=== PATIENT | female | born 1960 | race Caucasian/White ===

== ENCOUNTER → 2020-08-19 13:27 | Outpatient (BNVA) | payer MEDICAID, SELFPAY | PROVIDERS: PCP Family Medicine; Visit Provider Family Medicine | DX: I10 Essential (primary) hypertension (principal); E78.5 Hyperlipidemia, unspecified; G47.00 Insomnia, unspecified; J43.1 Panlobular emphysema; E78.2 Mixed hyperlipidemia; M77.12 Lateral epicondylitis, left elbow; F51.05 Insomnia due to other mental disorder; F99 Mental disorder, not otherwise specified; M50.30 Other cervical disc degeneration, unspecified cervical region; F41.8 Other specified anxiety disorders; Z68.25 Body mass index [BMI] 25.0-25.9, adult; F17.219 Nicotine dependence, cigarettes, with unspecified nicotine-induced disorders | CPT/HCPCS: 80053; 80061; 82043; 85025 ==

== ENCOUNTER → 2020-08-20 11:12 | Outpatient (BNVA) | payer MEDICAID, SELFPAY | PROVIDERS: PCP Family Medicine; Visit Provider Family Medicine | DX: I10 Essential (primary) hypertension (principal); E78.5 Hyperlipidemia, unspecified; G47.00 Insomnia, unspecified; E78.2 Mixed hyperlipidemia; J43.1 Panlobular emphysema; M50.30 Other cervical disc degeneration, unspecified cervical region; F41.8 Other specified anxiety disorders; M77.12 Lateral epicondylitis, left elbow; F51.05 Insomnia due to other mental disorder; F99 Mental disorder, not otherwise specified; F17.219 Nicotine dependence, cigarettes, with unspecified nicotine-induced disorders; D53.9 Nutritional anemia, unspecified; Z68.25 Body mass index [BMI] 25.0-25.9, adult | CPT/HCPCS: 82607 ==

== ENCOUNTER → 2020-09-28 08:26 | Outpatient (BNVA) | payer MEDICAID, SELFPAY | PROVIDERS: PCP Family Medicine; Visit Provider Psychiatry & Neurology Psychiatry | DX: F41.8 Other specified anxiety disorders (principal); F33.1 Major depressive disorder, recurrent, moderate; F41.1 Generalized anxiety disorder; F17.200 Nicotine dependence, unspecified, uncomplicated; F43.9 Reaction to severe stress, unspecified | CPT/HCPCS: 99204 ==

== ENCOUNTER 2020-10-12 09:17 | Outpatient (CLI) | payer MEDICAID, SELFPAY ==
--- NOTE | 2020-10-12 09:31 | XR_ITS ---
WS: [id number] Exam: XR knee RT 3V* [id number] Date/Time of Exam: 10/12/2020 9:31 AM Reason For Exam: lateral right knee pain No fracture or dislocation. Mild degenerative change of the medial lateral joint compartments. No kaylan nt effusion. Normal soft tissues. XR/XR knee RT 3V* [id number] IMPRESSION: 1. Mild DJD. No fracture or other significant finding.
== END 2020-10-12 09:18 | disposition home or self-care (01) ==
LOC: RADWPI 09:21
PROVIDERS: PCP Family Medicine; Visit Provider Family Medicine
DX: M25.561 Pain in right knee (principal); G89.29 Other chronic pain; M17.11 Unilateral primary osteoarthritis, right knee
CPT/HCPCS: 73562

== ENCOUNTER → 2020-10-26 09:40 | Outpatient (BNVA) | payer MEDICAID, SELFPAY | PROVIDERS: PCP Family Medicine; Visit Provider Family Medicine | DX: R29.6 Repeated falls (principal); R42 Dizziness and giddiness; E53.8 Deficiency of other specified B group vitamins | CPT/HCPCS: 80053; 81000; 85025 ==

== ENCOUNTER → 2020-11-25 10:23 | Outpatient (BNVA) | payer MEDICAID, SELFPAY | PROVIDERS: PCP Family Medicine; Visit Provider Social Worker | DX: F41.8 Other specified anxiety disorders (principal); F33.1 Major depressive disorder, recurrent, moderate; F41.1 Generalized anxiety disorder | CPT/HCPCS: 90834 ==

== ENCOUNTER → 2020-12-02 11:47 | Outpatient (BNVA) | payer MEDICAID, SELFPAY | PROVIDERS: PCP Family Medicine; Visit Provider Psychiatry & Neurology Psychiatry | DX: F41.1 Generalized anxiety disorder (principal); F41.8 Other specified anxiety disorders; F33.1 Major depressive disorder, recurrent, moderate; F43.9 Reaction to severe stress, unspecified; F17.200 Nicotine dependence, unspecified, uncomplicated | CPT/HCPCS: 99213 ==

== ENCOUNTER → 2020-12-03 11:00 | Outpatient (BNVA) | payer MEDICAID, SELFPAY | PROVIDERS: PCP Family Medicine; Visit Provider Family Medicine | DX: Z01.812 Encounter for preprocedural laboratory examination (principal); Z20.822 Contact with and (suspected) exposure to COVID-19 | CPT/HCPCS: 87635 ==

== ENCOUNTER 2020-12-04 13:04 | Outpatient (CLI) | payer MEDICAID, SELFPAY ==
--- NOTE | 2020-12-04 13:14 | XR_ITS ---
WS: [id number] LUMBAR SPINE TECHNIQUE: 3 views of the lumbar spine CLINICAL INFORMATION: low back pain COMPARISON: None. FINDINGS: Mild lumbar curve convex right.. No acute appearing compression fractures. Osteopenia. Pelvic phlebol iths. Slight retrolisthesis L5 on S1 measuring 2 mm. Otherwise normal lumbar alignment. Aortic calcif ication. Mild disc space narrowing L5-S1. Disc space heights are otherwise well-preserved. Moderate f acet arthropathy L5-S1. XR/XR lumbar spine 2-3V* [id number] IMPRESSION: 1. Lumbar curve convex right. 2. Osteopenia. 3. No acute compression fractures. 4. Slight retrolisthesis L5 on S1 with mild disc space narrowing. 5. Disc space heights and vertebral body heights otherwise well preserved.
== END 2020-12-04 13:05 | disposition home or self-care (01) ==
PROVIDERS: PCP Family Medicine; Visit Provider Family Medicine
DX: M54.5 Low back pain (principal); M85.88 Other specified disorders of bone density and structure, other site
CPT/HCPCS: 72100

== ENCOUNTER 2020-12-08 07:10 | Outpatient (CLI) | payer MEDICAID, SELFPAY ==
--- NOTE | 2020-12-08 07:43 | PFTS_ITS ---
Date of Study:12/08/20 Date of Dictation: MECHANICS: Forced vital capacity (FVC) is reduced. Forced expiratory volume in one second (FEV1) is reduced. FEV1/FVC is normal. FLOW VOLUME LOOP: Narrow. LUNG VOLUMES: Not measured DIFFUSING CAPACITY FOR CARBON MONOXIDE: Not measured. INTERPRETATION: The postbronchodilator spirometry is consistent with moderate restriction. There is no significant postbronchodilator response. MTDD
== END 2020-12-08 07:11 | disposition home or self-care (01) ==
PROVIDERS: PCP Family Medicine; Visit Provider Family Medicine
DX: J43.1 Panlobular emphysema (principal)
CPT/HCPCS: 94060; J7611

== ENCOUNTER → 2020-12-21 10:14 | Outpatient (BNVA) | payer MEDICAID, SELFPAY | PROVIDERS: PCP Family Medicine; Visit Provider Social Worker | DX: F41.8 Other specified anxiety disorders (principal); F33.1 Major depressive disorder, recurrent, moderate; F41.1 Generalized anxiety disorder | CPT/HCPCS: 90834; 81000; 87086 ==

== ENCOUNTER 2020-12-24 12:14 | Outpatient (CLI) | payer MEDICAID, SELFPAY ==
--- NOTE | 2020-12-24 13:00 | MR_ITS ---
WS: [id number] MRI LUMBAR SPINE NONCONTRAST TECHNIQUE: Sagittal T1, T2 and STIR imaging. Axial T1 and T2 imaging. CLINICAL INFORMATION: back pain COMPARISON: None. FINDINGS: Mild lumbar curve. No acute compression. No high-grade central canal stenosis. Mild disc bulging wors e at L3-L5. L1-L2: Normal. L2-L3: No significant disc bulging. Mild facet arthropathy. Spinal canal and foramen are patent. L3-L4: Mild annular bulging with slight effacement of ventral thecal sac. Slight narrowing of the sub articular recess bilaterally left greater than right. Mild facet arthropathy. Foramen are patent. L4-L5: Mild eccentric disc bulging with small bilateral foraminal protrusions and mild bilateral fora jenna narrowing. Spinal canal is patent. Mild facet arthropathy. L5-S1: Mild disc bulging and osteophytic ridging. Right foraminal protrusion slightly impinges the ex iting right L5 nerve root. Spinal canal and foramen are patent. Moderate facet arthropathy. Partially visualized right hepatic cysts. Small left renal cysts. Tiny disc protrusions in the mid th oracic spine on the encoding clerk imaging more prominent at T7-T8, T8-T9, and T9-T10. Mild central canal sten osis at T7-8. Visualized pelvic bony structures: Normal. Paravertebral soft tissues: Normal. MR/MR lumbar spine wo con* [id number] IMPRESSION: 1. Mild lumbar curve. No acute compression. No high-grade central canal stenos is. 2. Small bilateral foraminal protrusions L4-5 with mild bilateral foraminal na rrowing. 3. Mild disc bulging L3-4 with slight narrowing of the left subarticular reces s. 4. Right eccentric disc protrusion L5-S1 slightly impinges the exiting right L 5 nerve root. 5. Mild facet arthropathy L3-L4 L4-L5 and L5-S1. 6. Small disc protrusions in the mid thoracic spine worse at T7-T8 with mild c entral canal stenosis described above. This could be further evaluated with [facility] spine MRI if indicated.
== END 2020-12-24 12:15 | disposition home or self-care (01) ==
LOC: RADSHAW 12:15
PROVIDERS: PCP Family Medicine; Visit Provider Family Medicine
DX: M51.26 Other intervertebral disc displacement, lumbar region (principal); M51.27 Other intervertebral disc displacement, lumbosacral region; M47.816 Spondylosis without myelopathy or radiculopathy, lumbar region; M47.817 Spondylosis without myelopathy or radiculopathy, lumbosacral region
CPT/HCPCS: 72148

== ENCOUNTER → 2021-01-19 10:22 | Outpatient (BNVA) | payer MEDICAID, SELFPAY | PROVIDERS: PCP Family Medicine; Referring Provider Family Medicine; Visit Provider Anesthesiology Pain Medicine | DX: G89.29 Other chronic pain (principal); M54.42 Lumbago with sciatica, left side; M79.605 Pain in left leg; F17.210 Nicotine dependence, cigarettes, uncomplicated | CPT/HCPCS: 99204 ==

== ENCOUNTER → 2021-01-21 14:54 | Outpatient (BNVA) | payer MEDICAID, SELFPAY | PROVIDERS: PCP Family Medicine; Visit Provider Social Worker | DX: F41.8 Other specified anxiety disorders (principal); F33.1 Major depressive disorder, recurrent, moderate; F41.1 Generalized anxiety disorder; F43.12 Post-traumatic stress disorder, chronic; F84.5 Asperger's syndrome | CPT/HCPCS: 90834 ==

== ENCOUNTER → 2021-02-18 10:29 | Outpatient (BNVA) | payer MEDICAID, SELFPAY | PROVIDERS: PCP Family Medicine; Visit Provider Social Worker | DX: F41.8 Other specified anxiety disorders (principal); F33.1 Major depressive disorder, recurrent, moderate; F41.1 Generalized anxiety disorder | CPT/HCPCS: 90834 ==

== ENCOUNTER → 2021-03-31 09:14 | Outpatient (BNVA) | payer MEDICAID, SELFPAY | PROVIDERS: PCP Family Medicine; Visit Provider Social Worker | DX: F41.8 Other specified anxiety disorders (principal); F33.1 Major depressive disorder, recurrent, moderate; F41.1 Generalized anxiety disorder | CPT/HCPCS: 90837; 90834 ==

== ENCOUNTER 2021-04-06 06:00 | Outpatient (RCR) | payer MEDICAID, SELFPAY | END 2021-04-19 23:59 | disposition home or self-care (01) | LOC: SPT 06:00 | PROVIDERS: PCP Family Medicine; Referring Provider Anesthesiology Pain Medicine; Visit Provider Anesthesiology Pain Medicine | DX: M54.42 Lumbago with sciatica, left side (principal); G89.29 Other chronic pain; M50.30 Other cervical disc degeneration, unspecified cervical region | CPT/HCPCS: 97110; 97161 ==

== ENCOUNTER 2021-04-20 06:00 | Outpatient (RCR) | payer MEDICAID, SELFPAY | END 2021-05-17 23:59 | disposition home or self-care (01) | LOC: SPT 06:00 | PROVIDERS: PCP Family Medicine; Referring Provider Anesthesiology Pain Medicine; Visit Provider Anesthesiology Pain Medicine | DX: M54.42 Lumbago with sciatica, left side (principal); G89.29 Other chronic pain; M50.30 Other cervical disc degeneration, unspecified cervical region | CPT/HCPCS: 97110 ==

== ENCOUNTER 2021-04-30 13:52 | Outpatient (CLI) | payer MEDICAID, SELFPAY ==
--- NOTE | 2021-04-30 14:04 | XR_ITS ---
WS: [id number] Facial bones. HISTORY: Fall with facial bruising. COMPARISON: None. There are no air-fluid levels within the sinuses. Orbits are intact. Nasal bones are normal. No zygom atic fracture identified. Mandibular condyles are normally positioned. XR/XR facial bones <3V [id number] IMPRESSION: No facial bone fractures.
== END 2021-04-30 13:53 | disposition home or self-care (01) ==
LOC: RAD 14:01
PROVIDERS: PCP Family Medicine; Visit Provider Family Medicine
DX: S00.93XA Contusion of unspecified part of head, initial encounter (principal); W19.XXXA Unspecified fall, initial encounter
CPT/HCPCS: 70140

== ENCOUNTER 2021-05-18 06:00 | Outpatient (RCR) | payer MEDICAID, SELFPAY | END 2021-06-17 23:59 | disposition home or self-care (01) | LOC: SPT 06:00 | PROVIDERS: PCP Family Medicine; Referring Provider Anesthesiology Pain Medicine; Visit Provider Anesthesiology Pain Medicine | DX: M54.42 Lumbago with sciatica, left side (principal); G89.29 Other chronic pain; M50.30 Other cervical disc degeneration, unspecified cervical region | CPT/HCPCS: 97110 ==

== ENCOUNTER 2021-06-18 06:00 | Outpatient (RCR) | payer MEDICAID, SELFPAY | END 2021-06-29 23:59 | disposition home or self-care (01) | LOC: SPT 06:00 | PROVIDERS: PCP Family Medicine; Referring Provider Anesthesiology Pain Medicine; Visit Provider Anesthesiology Pain Medicine | DX: M54.42 Lumbago with sciatica, left side (principal); G89.29 Other chronic pain; M50.30 Other cervical disc degeneration, unspecified cervical region | CPT/HCPCS: 97110 ==

== ENCOUNTER → 2021-07-07 07:35 | Outpatient (BNVA) | payer MEDICAID, SELFPAY | PROVIDERS: PCP Family Medicine; Visit Provider Social Worker | DX: F33.1 Major depressive disorder, recurrent, moderate (principal); F41.1 Generalized anxiety disorder | CPT/HCPCS: 90834 ==

== ENCOUNTER → 2021-07-13 09:30 | Outpatient (BNVA) | payer MEDICAID, SELFPAY | PROVIDERS: PCP Family Medicine; Visit Provider Psychiatry & Neurology Psychiatry | DX: F43.9 Reaction to severe stress, unspecified (principal); F41.1 Generalized anxiety disorder; F33.1 Major depressive disorder, recurrent, moderate; F17.219 Nicotine dependence, cigarettes, with unspecified nicotine-induced disorders | CPT/HCPCS: 99214 ==

== ENCOUNTER → 2021-07-15 15:31 | Outpatient (BNVA) | payer MEDICAID, SELFPAY | PROVIDERS: PCP Family Medicine; Visit Provider Family Medicine | DX: I10 Essential (primary) hypertension (principal); E78.2 Mixed hyperlipidemia | CPT/HCPCS: 80053; 80061; 82043; 85025 ==

== ENCOUNTER → 2021-08-02 07:32 | Outpatient (BNVA) | payer MEDICAID, SELFPAY | PROVIDERS: PCP Family Medicine; Visit Provider Social Worker | DX: F33.1 Major depressive disorder, recurrent, moderate (principal) | CPT/HCPCS: 90837; 90834 ==

== ENCOUNTER → 2021-08-24 09:55 | Outpatient (BNVA) | payer MEDICAID, SELFPAY | PROVIDERS: PCP Family Medicine; Visit Provider Psychiatry & Neurology Psychiatry | DX: F43.9 Reaction to severe stress, unspecified (principal); F41.1 Generalized anxiety disorder; F33.1 Major depressive disorder, recurrent, moderate; F17.200 Nicotine dependence, unspecified, uncomplicated | CPT/HCPCS: 99214 ==

== ENCOUNTER → 2021-09-07 10:01 | Outpatient (BNVA) | payer MEDICAID, SELFPAY | PROVIDERS: PCP Family Medicine; Visit Provider Social Worker | DX: F33.1 Major depressive disorder, recurrent, moderate (principal); F43.9 Reaction to severe stress, unspecified; F17.200 Nicotine dependence, unspecified, uncomplicated; F41.1 Generalized anxiety disorder | CPT/HCPCS: 90837; 90834 ==

== ENCOUNTER 2021-11-08 13:13 | Outpatient (CLI) | payer MEDICAID, SELFPAY ==
--- NOTE | 2021-11-08 14:30 | USCV_ITS ---
Estephanie Mao Age: 60 Gender: F : 1960 Exam Date: 11/08/2021 14:24 Ordering Phys: Caterina Jacome DO Technologist: Etta Loera [place] [facility] [place]: s/p AOV replacement, LVH BP: / HR: 59 Rhythm: Sinus Technical Quality: MEASUREMENTS (Male / Female) Normal Values 2D ECHO LV Diastolic Diameter PLAX 3.9 cm 4.2 - 5.9 / 3.9 - 5.3 cm LV Systolic Diameter PLAX 2.3 cm IVS Diastolic Thickness 0.9 cm 0.6 - 1.0 / 0.6 - 0.9 cm IVS Systolic Thickness 1.5 cm LVPW Diastolic Thickness 1.1 cm 0.6 - 1.0 / 0.6 - 0.9 cm LVPW Systolic Thickness 1.2 cm LVOT Diameter 2.0 cm LV Ejection Fraction 2D Teich 74.4 % LV Ejection Fraction MOD 2C 71.4 % LV Ejection Fraction 2C AL 71.0 % LA Diameter 2.7 cm LA Width 3.5 cm LA Height 4.8 cm RA Width 2.5 cm RA Height 3.7 cm Aorta at Sinotubular Diameter 2.6 cm IVC Diameter 1.2 cm M-MODE MV E Point Septal Separation 0.4 cm DOPPLER AV Peak Velocity 327.3 cm/s LVOT Peak Velocity 104.0 cm/s AV Area Cont Eq vti 1.5 cm squared AV Area Cont Eq pk 1.0 cm squared MV Peak Velocity 150.0 cm/s MV Area PHT 3.9 cm squared Mitral E to A Ratio 1.4 MV E' Velocity 71.0 cm/s Mitral E to MV E' Ratio 14.1 Mitral E to LV E' Lateral Ratio 13.0 Mitral E to LV E' Septal Ratio 15.6 TR Peak Velocity 92.3 cm/s TR Peak Gradient 3.4 mmHg Right Atrial Pressure 3.0 mmHg Pulmonary Artery Systolic Pressu 6.4 mmHg PV Peak Velocity 74.0 cm/s RV Acceleration Time 0.2 s RV Ejection Time 0.3 s RV AcT/ET 0.5 FINDINGS Left Ventricle Normal left ventricular size, systolic function and wall thickness, with no regional wall motion abnormalities. Left ventricular ejection fraction is estimated at 65 %. Grade I/IV diastolic dysfunction (abnormal relaxation filling pattern), normal to mildly elevated filling pressures. Right Ventricle Normal right ventricular size and systolic function. Right Atrium The right atrium is normal in size. Left Atrium The left atrium is normal in size. Mitral Valve Structurally normal mitral valve without significant stenosis or prolapse. There is no mitral regurgitation. Aortic Valve Bioprosthetic aortic valve. Mild aortic valve stenosis, mean gradient 31.1 mmHg, FERNANDO 1.5 cm squared. No aortic valve regurgitation. Valve is properly positioned and seated. Tricuspid Valve Structurally normal tricuspid valve without significant stenosis or regurgitation. Pulmonary artery systolic pressure is normal. Pulmonic Valve Pulmonic valve not well visualized. Pericardium Normal pericardium without effusion. Aorta Normal ascending aorta dimension. IVC The inferior vena cava pulmonary and hepatic veins appear normal. CONCLUSIONS Normal left ventricular size, systolic function and wall thickness, with no regional wall motion abnormalities. Left ventricular ejection fraction is estimated at 65 %. Grade I/IV diastolic dysfunction (abnormal relaxation filling pattern), normal to mildly elevated filling pressures. Bioprosthetic aortic valve. Mild aortic valve stenosis, mean gradient 31.1 mmHg, FERNANDO 1.5 cm squared. No aortic valve regurgitation. Valve is properly positioned and seated. There are no prior echocardiogram studies to compare. Dr. Med Avendano MD (Electronically Signed) Final Date: 09 November 2021 10:08 S
== END 2021-11-08 13:14 | disposition home or self-care (01) ==
LOC: RAD 13:14
PROVIDERS: Visit Provider Family Medicine
DX: Z95.2 Presence of prosthetic heart valve (principal); I51.7 Cardiomegaly; I35.0 Nonrheumatic aortic (valve) stenosis; I50.1 Left ventricular failure, unspecified
CPT/HCPCS: 93306

== ENCOUNTER → 2021-11-09 08:45 | Outpatient (BNVA) | payer MEDICAID, SELFPAY | PROVIDERS: Visit Provider Anesthesiology Pain Medicine | DX: G89.29 Other chronic pain (principal); M54.42 Lumbago with sciatica, left side; M47.816 Spondylosis without myelopathy or radiculopathy, lumbar region; M48.04 Spinal stenosis, thoracic region; M79.604 Pain in right leg; M79.605 Pain in left leg | CPT/HCPCS: 99204 ==

== ENCOUNTER → 2021-12-06 11:56 | Outpatient (BNVA) | payer MEDICAID, SELFPAY | PROVIDERS: PCP Family Medicine; Visit Provider Internal Medicine | DX: I10 Essential (primary) hypertension (principal); E78.5 Hyperlipidemia, unspecified; Z95.2 Presence of prosthetic heart valve; F17.210 Nicotine dependence, cigarettes, uncomplicated | CPT/HCPCS: 93005; 99204 ==

== ENCOUNTER → 2022-01-12 14:46 | Outpatient (BNVA) | payer MEDICAID, SELFPAY | PROVIDERS: PCP Family Medicine; Visit Provider Internal Medicine Pulmonary Disease | DX: J43.1 Panlobular emphysema (principal); Z95.2 Presence of prosthetic heart valve; G47.33 Obstructive sleep apnea (adult) (pediatric); F17.219 Nicotine dependence, cigarettes, with unspecified nicotine-induced disorders; Z12.2 Encounter for screening for malignant neoplasm of respiratory organs; Z71.6 Tobacco abuse counseling | CPT/HCPCS: 99204 ==

== ENCOUNTER → 2022-02-08 10:21 | Outpatient (BNVA) | payer MEDICAID, SELFPAY | PROVIDERS: PCP Family Medicine; Referring Provider Family Medicine; Visit Provider Physician Assistant | DX: S33.2XXA Dislocation of sacroiliac and sacrococcygeal joint, initial encounter (principal); W19.XXXA Unspecified fall, initial encounter | CPT/HCPCS: 72110; 99203 ==

== ENCOUNTER 2022-02-09 10:39 | Outpatient (CLI) | payer MEDICAID, SELFPAY ==
--- NOTE | 2022-02-09 11:00 | CT_ITS ---
WS: [id number] LDCT LUNG CANCER SCREENING HISTORY: lung screening TECHNIQUE: Axial imaging performed from the apices to 1 cm below the costophrenic angles. Coronal and sagittal reformats are submitted with axial MIP series. All CT scans at [facility] use at least one of these dose optimization techniques: automated exposure control; mA and/or kV adjustment per patient size (includes targeted exams where dose is matched to clinical indication); or iterativ e reconstruction. DLP: 61.92 mGy.cm DIvol: Mean CTDIvol: 1.60 (mGy) COMPARISON: None available. Diagnostic quality: Satisfactory Lung Nodules: No nodule or mass. No endobronchial lesion. Lungs: Diffuse interstitial reticular thickening throughout both lungs. Most significant in the perip heral locations in greatest in the RIGHT upper lobe. There is bronchial wall thickening. All of these changes are probably related to respiratory bronchiolitis and fibrotic changes associated with a his tory of smoking. Heart: Prior CABG. Mild cardiomegaly. No pericardial effusion. Other findings: Numerous low-attenuation lesions scattered throughout the liver. These need to be fur ther evaluated. No adrenal mass. CT/CT lung screening [id number] IMPRESSION: LUNG-RADS: 1S-Negative with Significant Findings FOLLOW UP: 12 Month: Continue annual screening with LDCT OTHER FINDINGS (S MODIFIER): Numerous low-attenuation masses within the liver. Favor these are probably cysts but needs to be further evaluated. Recommend fol low-up RIGHT upper quadrant ultrasound.
== END 2022-02-09 10:40 | disposition home or self-care (01) ==
LOC: RAD 10:44
PROVIDERS: PCP Family Medicine; Visit Provider Internal Medicine Pulmonary Disease
DX: Z12.2 Encounter for screening for malignant neoplasm of respiratory organs (principal); F17.210 Nicotine dependence, cigarettes, uncomplicated
CPT/HCPCS: 71271

== ENCOUNTER → 2022-03-01 09:52 | Outpatient (BNVA) | payer MEDICAID, SELFPAY | PROVIDERS: Visit Provider Family Medicine | DX: K76.9 Liver disease, unspecified (principal); E53.8 Deficiency of other specified B group vitamins; M54.42 Lumbago with sciatica, left side; I10 Essential (primary) hypertension; E78.5 Hyperlipidemia, unspecified; F17.219 Nicotine dependence, cigarettes, with unspecified nicotine-induced disorders; G89.29 Other chronic pain | CPT/HCPCS: 80053; 80061; 83036; 84439; 84443; 85025 ==

== ENCOUNTER 2022-03-29 09:21 | Outpatient (CLI) | payer MEDICAID, SELFPAY | END 2022-03-29 09:22 | disposition home or self-care (01) | LOC: RT 09:24 | PROVIDERS: PCP Family Medicine; Visit Provider Internal Medicine Pulmonary Disease | DX: J44.9 Chronic obstructive pulmonary disease, unspecified (principal) | CPT/HCPCS: 94010; 94618; 94726; 94729 ==

== ENCOUNTER 2022-04-30 22:59 | Emergency (ER) | payer MEDICAID, SELFPAY ==
[2022-04-30 23:03] VITALS: BP 108/56; PULSE 72; RESP 13; TEMP 36.6; O2SAT 96; BMI 24.4
--- NOTE | 2022-05-01 00:33 | CTR_ITS ---
PROCEDURE INFORMATION: Exam: CT Lumbar Spine Without Contrast Exam date and time: 05/01/2022 12:46 AM Age: 61 years old Clinical indication: Other: Right side radiculopathy TECHNIQUE: Imaging protocol: Computed tomography of the lumbar spine without contrast. Radiation optimization: All CT scans at this facility use at least one of these dose optimization techniques: automated exposure control; mA and/or kV adjustment per patient size (includes targeted exams where dose is matched to clinical indication); or iterative reconstruction. Other protocol: This patient has received [address] and 0 known cardiac nuclear medicine studies in the 12 months prior to the current study. COMPARISON: MR lumbar spine wo con* [id number] 12/24/2020 12:25 PM RADIATION DOSE METRICS: Total DLP (mGy-cm): 455.88 FINDINGS: Bones/joints: Mild dextrocurvature of the upper lumbar spine and mild levocurvature of the lumbosacral junction. There is retrolisthesis of L5 on S1. The alignment is otherwise maintained. The vertebral body heights are maintained. No evidence of acute fractures. There are degenerative changes of the SI joints. At L1-L2: Mild disc bulge. Minimal hypertrophy of the ligamentum flavum. No significant spinal canal stenosis. Mild facet arthropathy. No high-grade neural foraminal stenosis. At L2-L3: Diffuse disc bulge. Mild prominence of the posterior epidural fat. Mild facet arthropathy. No significant spinal canal or neural foramina stenosis. At L3-L4: Diffuse disc bulge. Mild hypertrophy of the ligamentum flavum. No significant/high-grade spinal canal stenosis. Bilateral facet arthropathy. No significant neural foraminal stenosis. At L4-L5: Diffuse disc bulge. Mild hypertrophy of the ligamentum flavum. No significant/high-grade spinal canal stenosis. Mild facet arthropathy. Mild bilateral neural foramina stenosis. At L5-S1: Diffuse disc bulge. Mild hypertrophy of the ligamentum flavum and mild increased posterior epidural fat. No significant/high-grade spinal canal stenosis. Mild right lateral recess stenosis. Bilateral facet arthropathy. Moderate right and mild left neural foraminal stenosis. Vasculature: There are atherosclerotic calcifications of the abdominal aorta and its branches. Soft tissues: Unremarkable. CT/CT lumbar spine wo con* [id number] IMPRESSION: Multilevel degenerative disc and joint disease as detailed level by level above, worse at L5-S1 as outlined.
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
[2022-05-01] MEDS: orphenadrine 30 mg/mL Inj 2 mL 60 MG IM (00:57)
[2022-05-01] MEDS: dexamethasone 10 mg/mL INJ IM (00:57)
[2022-05-01] MEDS: ketorolac 30 mg/mL INJ IM (00:57)
== END 2022-05-01 02:17 | disposition home or self-care (01) ==
PROVIDERS: Emergency Provider Nurse Practitioner; PCP Family Medicine
DX: M51.16 Intervertebral disc disorders with radiculopathy, lumbar region (principal); M47.816 Spondylosis without myelopathy or radiculopathy, lumbar region; M12.88 Other specific arthropathies, not elsewhere classified, other specified site; J44.9 Chronic obstructive pulmonary disease, unspecified; I10 Essential (primary) hypertension; E78.5 Hyperlipidemia, unspecified; H35.30 Unspecified macular degeneration; F17.210 Nicotine dependence, cigarettes, uncomplicated
CPT/HCPCS: 72131; 96372; 99284; J1100; J1885; J2360

== ENCOUNTER 2022-12-04 22:31 | Emergency (ER) | payer MEDICAID, SELFPAY ==
[2022-12-04 22:32] VITALS: BP 145/91; PULSE 76; RESP 16; TEMP 37.1; O2SAT 99; BMI 27.2
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
[2022-12-04 23:48] VITALS: RESP 18; O2SAT 99
[2022-12-04] MEDS: oxyCODONE-APAP 5-325 mg Tablet 1 TAB PO (23:48)
[2022-12-05] MEDS: lidocaine 1% INJ 10 mL (per mL) 20 ML INJECTION (00:47)
--- NOTE | 2022-12-05 00:53 | XRR_ITS ---
PROCEDURE INFORMATION: Exam: XR Right Toe(s) Exam date and time: 12/05/2022 1:03 AM Age: 62 years old Clinical indication: Injury or trauma; Fall; Fracture, traumatic; Displaced; Toes; Right; Fifth; Patient HX: Check S/P reduction of 5th phalangeal fracture. ; Additional info: Post reduc TECHNIQUE: Imaging protocol: Radiologic exam of the right toes. Views: Minimum 2 views. COMPARISON: CR (LOW EXM, ) 12/04/2022 11:11 PM FINDINGS: Bones/joints: 5th proximal phalanx distal metaphyseal fracture again seen now with improved alignment compared to prior exam with persistent mild separation. Soft tissues: Normal. XR/XR toe RT min 2V [id number] IMPRESSION: 5th proximal phalanx distal metaphyseal fracture again seen now with improved alignment compared to prior exam with persistent mild separation.
--- NOTE | 2022-12-05 02:05 | ED_ITS ---
HPI - Extremity Problem General: Chief complaint: Extremity Injury, Lower Stated complaint: Fall Time Seen by Provider: 12/04/22 22:36 History of Present Illness: 62-year-old female who stubbed her toe on a nightstand. She presents with fifth toe pain and deformity on the right side. Associated symptoms: Deny chest pain, fever(s) or rash Review of Systems Const: Denies: fever(s) Card: Denies: chest pain Resp: Denies: dyspnea GI: Denies: vomiting Skin/Breast: Denies: rash PFSH ED PFSH: Medical History Asthma Chronic low back pain COPD (chronic obstructive pulmonary disease) DDD (degenerative disc disease), cervical Depression with anxiety Essential hypertension Hyperlipidemia Macular degeneration ROBERTO (obstructive sleep apnea) Psychiatric care Surgical History H/O section History of open heart surgery S/P AVR (aortic valve replacement) Family History Other Alzheimer disease Cancer Social History Smoking and tobacco status: current every day smoker cigarettes Packs smoked per day: 1 Years cigarettes smoked: 42 [ Other cigarette details: started at age 19] Quit status (tobacco): has tried quititng Number of times tried to quit tobacco: 4 Smoking risk assessment/counseling performed?: No Alcohol intake: never Desire information about alcohol rehabilitation?: No Counseling given: No Substance/Drug Use: never Desire information about substance/drug rehabilitation?: No Counseling given: No History of recent travel: No Female Reproductive History: Spontaneous abortions: No Physical Exam Const: COMMON NORMALS: no acute distress GENERAL APPEARANCE: cooperative; not ill appearing and not frail appearing HENMT: COMMON NORMALS: normocephalic, atraumatic and Normal external nose present HEAD & SCALP: normocephalic and atraumatic FACE & SINUS: normal facial exam and face symmetric NOSE: Normal external nose present Eye: COMMON NORMALS: Equal, round and reactive pupils present and EOMs intact bilaterally PUPIL: Yes Equal, round and reactive pupils present Neck/C-Spine: GENERAL: Yes trachea midline Chest: CHEST: Yes Symmetrical chest wall rise Resp: COMMON NORMALS: normal respiratory effort, No retractions, No use of accessory muscles and clear to auscultation bilaterally AUSCULTATION: clear to auscultation bilaterally Cardio: COMMON NORMALS: regular rate and regular rhythm RATE: regular rate RHYTHM: regular rhythm GI: COMMON NORMALS: Normal to inspection, nondistended, normoactive bowel sounds present Extremity: COMMON NORMALS: no pedal edema NARRATIVE EXTREMITY EXAM: Exam of the right foot reveals deformity of the fifth toe. There is lateral displacement and internal rotation deformity. Ecchymosis is present. Tenderness is present. Capillary refill is normal. Neuro: COLLETTE COMA SCALE: document [facility] findings [place] coma scale eye opening: Spontaneous [place] coma scale verbal response: Orientated [place] coma scale motor response: Obey commands [place] coma scale total score: 15 SENSORY EXAM: Yes extremities (intact) Psych: COMMON NORMALS: speech normal SPEECH: Yes normal speech Skin: COMMON NORMALS: no rashes or lesions noted GENERAL SKIN EXAM: no rashes or lesions noted Procedures Orthopedic Fracture Reduction Fracture #1: Time Out Performed: No Side: right Fracture Reduction Location: toe Analgesia: other (Digital block) Technique: direct manipulation and traction/counter-traction Post Reduction X-rays Demonstrate: acceptable reduction Post-reduction neuro exam: intact Post-reduction vascular exam: intact Splint Applied: Yes Patient Tolerated Procedure: well and no complications Course Vital Signs: Vital signs: Vital Signs Temperature 98.7 F 12/04/22 22:32 Pulse Rate 76 12/04/22 22:32 Respiratory Rate 18 12/04/22 23:48 Blood Pressure 145/91 12/04/22 22:32 Pulse Oximetry 99 12/04/22 23:48 Oxygen Delivery Me thod Room Air 12/04/22 22:32 MDM - Extremity (Nontraumatic) Medical Decision Making Patient splinted with tuyet taping, and orthopedic shoe. Outpatient orthopedic follow-up for repeat x-ray this week. Patient was told to keep the toe taped for splinting. Return for problems. Lab Data Radiology Impressions Toe X-Ray 12/05/22 00:53 IMPRESSION: 5th proximal phalanx distal metaphyseal fracture again seen now with improved alignment compared to prior exam with persistent mild separation. All radiology interpretation(s) finalized by discharge Discharge Plan Discharge Patient Disposition: Home Clinical Impression: Closed fracture of proximal phalanx of toe Condition: Stable Prescriptions: New hydrocodone-acetaminophen 5-325 mg tablet 1 tab PO Q8H PRN (Reason: pain) Qty: 7 0RF No Action cyanocobalamin (vitamin B-12) 1,000 mcg/mL kit 1,000 mcg IM ONCE Qty: 1 0RF albuterol sulfate [ProAir HFA] 90 mcg/actuation HFA aerosol inhaler See Rx Instructions .ROUTE .COMPLEX Qty: 8.5 5RF Dose Instruction: INHALE 2 PUFFS EVERY SIX HOURS NEEDED FOR SHORTNESS OF BREATH OR WHEEZING Rx Instructions: INHALE 2 PUFFS EVERY SIX HOURS NEEDED FOR SHORTNESS OF BREATH OR WHEEZING aspirin [Adult Low Dose Aspirin] 81 mg tablet,delayed release (DR/EC) 81 mg PO DAILY Qty: 90 3RF nicotine 21 mg/24 hr patch 24 hour See Rx Instructions .ROUTE .COMPLEX Qty: 28 1RF Dose Instruction: APPLY 1 PATCH TRANSDERMALLY DAILY Rx Instructions: APPLY 1 PATCH TRANSDERMALLY DAILY cyanocobalamin (vitamin B-12) 1,000 mcg/mL solution See Rx Instructions .ROUTE .COMPLEX Qty: 15 0RF Dose Instruction: INJECT 1ML INTRAMUSCULAR (INTO THE MUSCLE) ONCE WEEKLY FOR 3 WEEKS THEN ONCE PER MONTH. Rx Instructions: INJECT 1ML INTRAMUSCULAR (INTO THE MUSCLE) ONCE WEEKLY FOR 3 WEEKS THEN ONCE PER MONTH. omeprazole 40 mg capsule,delayed release(DR/EC) See Rx Instructions .ROUTE .COMPLEX Qty: 90 1RF Dose Instruction: TAKE 1 CAPSULE BY MOUTH DAILY Rx Instructions: TAKE 1 CAPSULE BY MOUTH DAILY duloxetine 60 mg capsule,delayed release(DR/EC) See Rx Instructions .ROUTE .COMPLEX Qty: 60 3RF Dose Instruction: TAKE 2 CAPSULES BY MOUTH DAILY Rx Instructions: TAKE 2 CAPSULES BY MOUTH DAILY aripiprazole 2 mg tablet See Rx Instructions .ROUTE .COMPLEX Qty: 30 3RF Dose Instruction: TAKE ONE TABLET BY MOUTH DAILY Rx Instructions: TAKE ONE TABLET BY MOUTH DAILY budesonide-formoterol [Symbicort] 160-4.5 mcg/actuation HFA aerosol inhaler See Rx Instructions .ROUTE .COMPLEX Qty: 10.2 5RF Dose Instruction: INHALE 2 INHALATIONS BY MOUTH TWICE DAILY Rx Instructions: INHALE 2 INHALATIONS BY MOUTH TWICE DAILY atorvastatin 40 mg tablet See Rx Instructions .ROUTE .COMPLEX Qty: 30 5RF Dose Instruction: TAKE 1 TABLET BY MOUTH EVERY DAY Rx Instructions: TAKE 1 TABLET BY MOUTH EVERY DAY cyclobenzaprine 5 mg tablet See Rx Instructions .ROUTE .COMPLEX Qty: 30 5RF Dose Instruction: TAKE 5 MG BY MOUTH THREE TIMES DAILY NEEDED FOR MUSCLE SPASM Rx Instructions: TAKE 5 MG BY MOUTH THREE TIMES DAILY NEEDED FOR MUSCLE SPASM ibuprofen 800 mg tablet See Rx Instructions .ROUTE .COMPLEX Qty: 60 5RF Dose Instruction: TAKE 1 TABLET BY MOUTH THREE TIMES DAILY NEEDED FOR PAIN Rx Instructions: TAKE 1 TABLET BY MOUTH THREE TIMES DAILY NEEDED FOR PAIN trazodone 100 mg tablet See Rx Instructions .ROUTE .COMPLEX Qty: 90 5RF Dose Instruction: TAKE THREE TABLETS BY MOUTH EVERY NIGHT AT BEDTIME NEEDED FOR INSOMNIA Rx Instructions: TAKE THREE TABLETS BY MOUTH EVERY NIGHT AT BEDTIME NEEDED FOR INSOMNIA bupropion HCl 300 mg tablet extended release 24 hr See Rx Instructions .ROUTE .COMPLEX Qty: 30 2RF Dose Instruction: TAKE ONE TABLET BY MOUTH IN THE MORNING Rx Instructions: TAKE ONE TABLET BY MOUTH IN THE MORNING losartan 25 mg tablet See Rx Instructions .ROUTE .COMPLEX Qty: 30 2RF Dose Instruction: TAKE 1 TABLET BY MOUTH EVERY DAY Rx Instructions: TAKE 1 TABLET BY MOUTH EVERY DAY methocarbamol 500 mg tablet 500 mg PO Q6H PRN (Reason: muscle spasm) Qty: 30 0RF Discharge Orders: Discharge ED (Routine); Ordered 12/05/22 Ordered By: Fortunato Ward Referrals: Hilario Marroquin DO [Primary Care Provider] - Brett Starr DO [Physician] - 4-7 days Patient Instructions: Toe Fracture (ED), Opioid Safety, Pain Management Activity Restrictions/Additional Instructions: Call orthopedics at the number above tomorrow for an outpatient appointment this week. Keep your toe taped to the next toe until that time. Also bear weight in the surgical shoe your dispensed until that time. Ice the toe for pain. Pain medication for severe pain. Coding Level of Care Code ED Nutrient Management Specialist for Ysabel Beverly
== END 2022-12-05 01:47 | disposition home or self-care (01) ==
PROVIDERS: Emergency Provider Emergency Medicine; PCP Family Medicine
DX: S92.511A Displaced fracture of proximal phalanx of right lesser toe(s), initial encounter for closed fracture (principal); Z79.82 Long term (current) use of aspirin; F17.210 Nicotine dependence, cigarettes, uncomplicated; J44.9 Chronic obstructive pulmonary disease, unspecified; I10 Essential (primary) hypertension; E78.5 Hyperlipidemia, unspecified; H35.30 Unspecified macular degeneration; W22.03XA Walked into furniture, initial encounter
CPT/HCPCS: 28515; 73660; 99283

== ENCOUNTER → 2022-12-19 09:03 | Outpatient (BNVA) | payer MEDICAID, SELFPAY | PROVIDERS: PCP Family Medicine; Visit Provider Family Medicine | DX: S92.501A Displaced unspecified fracture of right lesser toe(s), initial encounter for closed fracture (principal); E78.5 Hyperlipidemia, unspecified; F33.1 Major depressive disorder, recurrent, moderate; I10 Essential (primary) hypertension; E53.8 Deficiency of other specified B group vitamins; Z09 Encounter for follow-up examination after completed treatment for conditions other than malignant neoplasm; S92.501D Displaced unspecified fracture of right lesser toe(s), subsequent encounter for fracture with routine healing; E78.2 Mixed hyperlipidemia; K21.00 Gastro-esophageal reflux disease with esophagitis, without bleeding; J44.9 Chronic obstructive pulmonary disease, unspecified; X58.XXXA Exposure to other specified factors, initial encounter | CPT/HCPCS: 80053; 80061; 82607; 85025 ==

== ENCOUNTER 2023-01-03 19:07 | Emergency (ER) | payer MEDICAID, SELFPAY ==
[2023-01-03 19:27] VITALS: BP 117/73; PULSE 77; RESP 18; TEMP 36.4; O2SAT 97; BMI 26.2
--- NOTE | 2023-01-03 21:37 | W.ED.DENTAL ---
HPI - Dental/Oral General: Chief complaint: Dental/Oral Stated complaint: dental pain/swelling Time Seen by Provider: 01/03/23 21:37 History of Present Illness: 62-year-old female comes in today with discomfort to the left lower jaw of her mouth. Patient is a dentulous. Patient does wear dentures. Patient reports went to sleep last night when she woke up this morning the left lower jaw was tender and a little swollen. Patient appears nontoxic. Patient appears no acute distress. Patient at this time is homeless and was unable to get into the homeless skilled nursing for tonight. Review of Systems General: Reports: 10 or more systems reviewed and unremarkable except in HPI and below ENMT: Reports: mouth pain PFS ED PFSH: Medical History (Updated 01/03/23 @ 21:50 by NORMAN Harrison) Asthma Chronic low back pain COPD (chronic obstructive pulmonary disease) DDD (degenerative disc disease), cervical Depression with anxiety Essential hypertension Hyperlipidemia Macular degeneration ROBERTO (obstructive sleep apnea) Surgical History H/O section History of open heart surgery S/P AVR (aortic valve replacement) Family History Other Alzheimer disease Cancer Social History Smoking and tobacco/nicotine status: current every day tobacco/nicotine user cigarettes Packs smoked per day: 1 Years cigarettes smoked: 42 [ Other cigarette details: started at age 19] Quit status (tobacco/nicotine): has tried quititng Number of times tried to quit tobacco: 4 Alcohol intake: never Substance/Drug Use: never Female Reproductive History: Spontaneous abortions: No Physical Exam Const: COMMON NORMALS: alert HENMT: COMMON NORMALS: normocephalic HEAD & SCALP: normocephalic MOUTH: other (Left buccal tenderness with noticeable ulcer) Neck/C-Spine: COMMON NORMALS: no meningeal signs Chest: COMMONS NORMALS: normal inspection of the chest Resp: COMMON NORMALS: normal respiratory effort Cardio: COMMON NORMALS: regular rate RATE: regular rate Extremity: COMMON NORMALS: full ROM Neuro: SENSORIUM/ORIENTATION: Yes alert MENINGEAL SIGNS: Yes no meningeal signs Skin: COMMON NORMALS: turgor normal GENERAL SKIN EXAM: turgor normal Course Vital Signs: Vital signs: Vital Signs Temperature 97.6 F 01/03/23 19:27 Pulse Rate 77 01/03/23 19:27 Respiratory Rate 16 01/03/23 22:02 Blood Pressure 117/73 01/03/23 19:27 Pulse Oximetry 97 01/03/23 19:27 Oxygen Delivery Me thod Room Air 01/03/23 19:27 MDM - Dental/Oral Medical Decision Making 62-year-old female comes in today for complaints of left lower jaw discomfort. Patient appears nontoxic. Patient appears no acute distress. On exam patient has a small ulcer noted to the left lower gingival tissue between the edentulous jawline and the buccal cheek. Differential diagnosis includes aphthous ulcer, stomatitis, candidiasis, dental infection. No signs of severe illness or infection is noted at this time. Reviewed exam with patient with recommendations for treatment. Patient was stable and discharged home. No radiology studies performed this visit Discharge Plan Discharge Patient Disposition: Home Clinical Impression: Aphthous ulcer of mouth Condition: Stable Prescriptions: New triamcinolone acetonide 0.1 % paste 1 applic dental BID Qty: 5 0RF Rx Instructions: use after food and/or drink and/or oral hygiene Lidocaine Viscous 2 % solution 1 applic mucous membrane Q3H PRN (Reason: pain) Qty: 100 0RF No Action cyanocobalamin (vitamin B-12) 1,000 mcg/mL kit 1,000 mcg IM ONCE Qty: 1 0RF albuterol sulfate [ProAir HFA] 90 mcg/actuation HFA aerosol inhaler See Rx Instructions .ROUTE .COMPLEX Qty: 8.5 5RF Dose Instruction: INHALE 2 PUFFS EVERY SIX HOURS NEEDED FOR SHORTNESS OF BREATH OR WHEEZING Rx Instructions: INHALE 2 PUFFS EVERY SIX HOURS NEEDED FOR SHORTNESS OF BREATH OR WHEEZING hydrocodone-acetaminophen 5-325 mg tablet 1 tab PO Q8H PRN (Reason: pain) 7 Days Qty: 10 0RF atorvastatin 40 mg tablet See Rx Instructions .ROUTE .COMPLEX Qty: 30 5RF Dose Instruction: TAKE 1 TABLET BY MOUTH EVERY DAY Rx Instructions: TAKE 1 TABLET BY MOUTH EVERY DAY aripiprazole 2 mg tablet See Rx Instructions .ROUTE .COMPLEX Qty: 30 3RF Dose Instruction: TAKE ONE TABLET BY MOUTH DAILY Rx Instructions: TAKE ONE TABLET BY MOUTH DAILY bupropion HCl 300 mg tablet extended release 24 hr See Rx Instructions .ROUTE .COMPLEX Qty: 30 2RF Dose Instruction: TAKE ONE TABLET BY MOUTH IN THE MORNING Rx Instructions: TAKE ONE TABLET BY MOUTH IN THE MORNING cyanocobalamin (vitamin B-12) 1,000 mcg/mL solution See Rx Instructions .ROUTE .COMPLEX Qty: 15 0RF Dose Instruction: INJECT 1ML INTRAMUSCULAR (INTO THE MUSCLE) ONCE WEEKLY FOR 3 WEEKS THEN ONCE PER MONTH. Rx Instructions: Inject once per month. duloxetine 60 mg capsule,delayed release(DR/EC) See Rx Instructions .ROUTE .COMPLEX Qty: 60 3RF Dose Instruction: TAKE 2 CAPSULES BY MOUTH DAILY Rx Instructions: TAKE 2 CAPSULES BY MOUTH DAILY cyclobenzaprine 5 mg tablet See Rx Instructions .ROUTE .COMPLEX Qty: 30 5RF Dose Instruction: TAKE 5 MG BY MOUTH THREE TIMES DAILY NEEDED FOR MUSCLE SPASM Rx Instructions: TAKE 5 MG BY MOUTH THREE TIMES DAILY NEEDED FOR MUSCLE SPASM omeprazole 40 mg capsule,delayed release(DR/EC) See Rx Instructions .ROUTE .COMPLEX Qty: 90 1RF Dose Instruction: TAKE 1 CAPSULE BY MOUTH DAILY Rx Instructions: TAKE 1 CAPSULE BY MOUTH DAILY budesonide-formoterol [Symbicort] 160-4.5 mcg/actuation HFA aerosol inhaler See Rx Instructions .ROUTE .COMPLEX Qty: 10.2 5RF Dose Instruction: INHALE 2 INHALATIONS BY MOUTH TWICE DAILY Rx Instructions: INHALE 2 INHALATIONS BY MOUTH TWICE DAILY trazodone 100 mg tablet See Rx Instructions .ROUTE .COMPLEX Qty: 90 5RF Dose Instruction: TAKE THREE TABLETS BY MOUTH EVERY NIGHT AT BEDTIME NEEDED FOR INSOMNIA Rx Instructions: TAKE THREE TABLETS BY MOUTH EVERY NIGHT AT BEDTIME NEEDED FOR INSOMNIA aspirin [Adult Low Dose Aspirin] 81 mg tablet,delayed release (DR/EC) 81 mg PO DAILY Qty: 90 3RF nicotine 21 mg/24 hr patch 24 hour See Rx Instructions .ROUTE .COMPLEX Qty: 28 1RF Dose Instruction: APPLY 1 PATCH TRANSDERMALLY DAILY Rx Instructions: APPLY 1 PATCH TRANSDERMALLY DAILY ibuprofen 800 mg tablet See Rx Instructions .ROUTE .COMPLEX Qty: 60 5RF Dose Instruction: TAKE 1 TABLET BY MOUTH THREE TIMES DAILY NEEDED FOR PAIN Rx Instructions: TAKE 1 TABLET BY MOUTH THREE TIMES DAILY NEEDED FOR PAIN losartan 25 mg tablet See Rx Instructions .ROUTE .COMPLEX Qty: 30 2RF Dose Instruction: TAKE 1 TABLET BY MOUTH EVERY DAY Rx Instructions: TAKE 1 TABLET BY MOUTH EVERY DAY Discharge Orders: Discharge ED (Routine); Ordered 01/03/23 Ordered By: Ever Castaneda Referrals: Hilario Marroquin DO [Primary Care Provider] - Discharge Diet: Usual diet Discharge Activity: Increase activity as tolerated Patient Instructions: Gingivostomatitis (ED) Activity Restrictions/Additional Instructions: Good oral care. Apply dental paste to the ulcer twice a day for 3 to 5 days. Use viscous lidocaine every 3 hours as needed for discomfort. Drink plenty of water with medication. Follow-up with primary care or dentist for further evaluation and treatment. Coding Level of Care Code ED Boring And Filling Machine Operator for Ysabel Beverly
[2023-01-03] MEDS: lidocaine 2% viscous 15 mL UDC 5 ML MUCOUS MEM (21:58)
[2023-01-03 22:02] VITALS: RESP 16
== END 2023-01-03 22:03 | disposition home or self-care (01) ==
PROVIDERS: Emergency Provider Nurse Practitioner Family; PCP Family Medicine
DX: K12.0 Recurrent oral aphthae (principal); Z79.82 Long term (current) use of aspirin; J44.9 Chronic obstructive pulmonary disease, unspecified; I10 Essential (primary) hypertension; E78.5 Hyperlipidemia, unspecified; H35.30 Unspecified macular degeneration; F17.210 Nicotine dependence, cigarettes, uncomplicated
CPT/HCPCS: 99283

== ENCOUNTER 2023-01-07 22:01 | Emergency (ER) | payer MEDICAID, SELFPAY ==
[2023-01-07 22:10] VITALS: BP 106/66; PULSE 78; RESP 16; TEMP 36.8; O2SAT 96; BMI 26.2
--- NOTE | 2023-01-07 22:34 | XRR_ITS ---
PROCEDURE INFORMATION: Exam: XR Right Toe(s) Exam date and time: 01/07/2023 10:56 PM Age: 62 years old Clinical indication: Pain and injury or trauma; Other: Stubbed toe; Blunt trauma; Toes; Right lesser toe(s); Patient HX: Pain to fifth digit of right foot; Additional info: HX of 5th digit fracture, still painfull TECHNIQUE: Imaging protocol: Radiologic exam of the right toes. Views: Minimum 2 views. COMPARISON: CR (LOW EXM, ) 12/05/2022 1:03 AM FINDINGS: Bones/joints: Again seen is a fracture involving the distal aspect of 5th proximal phalanx with slight displacement. Comparison of alignment to the prior exam is limited however there may have been slight interval increase of dorsal displacement on the lateral view. There is also a fracture line extending to the articular aspect which was not definitively seen on the prior exam. Findings may represent a repeated/superimposed acute injury on the pre-existing fracture. No dislocation otherwise. No significant visible callus formation at this time. Continued follow-up should be obtained. Soft tissues: Soft tissue swelling around the 5th toe. XR/XR toe RT min 2V [id number] IMPRESSION: Fracture of the distal aspect of 5th proximal phalanx. However there is probably new involvement of the articular aspect on the current exam and probable worsening of displacement. See discussion above. Continued follow-up should be obtained.
[2023-01-08 02:35] VITALS: BP 121/47; PULSE 67; RESP 18; TEMP 36.6; O2SAT 99
[2023-01-08 02:40] VITALS: BP 121/47; PULSE 68; RESP 16; O2SAT 98
[2023-01-08] MEDS: orphenadrine 30 mg/mL Inj 2 mL 60 MG IM (05:13)
[2023-01-08] MEDS: ketorolac 60 mg/2 mL INJ IM (05:14)
[2023-01-08 05:35] VITALS: BP 131/84; PULSE 80; RESP 14; O2SAT 97
--- NOTE | 2023-01-08 15:24 | W.ED.EXTPRO ---
HPI - Extremity Problem General: Chief complaint: Extremity Problem,Nontraumatic Stated complaint: hurt toe Time Seen by Provider: 01/08/23 04:49 History of Present Illness: 62 year old female who evidently has been spending most of her time in the waiting room period she presents with worsening right 5th toe pain. She was previously diagnosed with a fracture of her proximal phalanx. She believes she has reentered it. She also complains of right sided muscular neck pain. This is an ongoing problem for her period no radicular pain. Associated symptoms: Deny chest pain, fever(s) or rash Review of Systems Const: Denies: fever(s), chills or body aches Eyes: Denies: change in vision Card: Denies: chest pain or palpitations Resp: Denies: dyspnea, productive cough, non-productive cough or wheezing GI: Denies: abdominal pain, nausea, vomiting, diarrhea or hematochezia : Denies: difficulty voiding Skin/Breast: Denies: rash Neuro: Denies: headache(s), weakness in extremities, dizziness or confusion [facility] ED PFSH: Medical History (Updated 01/08/23 @ 05:10 by Fortunato Ward DO) Asthma Chronic low back pain COPD (chronic obstructive pulmonary disease) DDD (degenerative disc disease), cervical Depression with anxiety Essential hypertension Hyperlipidemia Macular degeneration ROBERTO (obstructive sleep apnea) Surgical History H/O section History of open heart surgery S/P AVR (aortic valve replacement) Family History Other Alzheimer disease Cancer Social History Smoking and tobacco/nicotine status: current every day tobacco/nicotine user cigarettes Packs smoked per day: 1 Years cigarettes smoked: 42 [ Other cigarette details: started at age 19] Quit status (tobacco/nicotine): has tried quititng Number of times tried to quit tobacco: 4 Alcohol intake: never Substance/Drug Use: never Female Reproductive History: Spontaneous abortions: No Physical Exam Const: COMMON NORMALS: no acute distress GENERAL APPEARANCE: cooperative; not ill appearing and not frail appearing HENMT: COMMON NORMALS: normocephalic, atraumatic and Normal external nose present HEAD & SCALP: normocephalic and atraumatic FACE & SINUS: normal facial exam and face symmetric NOSE: Normal external nose present Eye: COMMON NORMALS: Equal, round and reactive pupils present and EOMs intact bilaterally PUPIL: Yes Equal, round and reactive pupils present Neck/C-Spine: GENERAL: Yes trachea midline CERVICAL SPINE: Yes cervical ROM normal and No Cervical spine tenderness OTHER: tenderness along the SCM on the right. Chest: CHEST: Yes Symmetrical chest wall rise Resp: COMMON NORMALS: normal respiratory effort, No retractions, No use of accessory muscles and clear to auscultation bilaterally AUSCULTATION: clear to auscultation bilaterally Cardio: COMMON NORMALS: regular rate and regular rhythm RATE: regular rate RHYTHM: regular rhythm GI: COMMON NORMALS: Normal to inspection, nondistended, normoactive bowel sounds present Extremity: COMMON NORMALS: no pedal edema OTHER: tenderness and swelling without deformity to the right 5th toe. Neuro: COLLETTE COMA SCALE: document GCS findings [place] coma scale eye opening: Spontaneous [place] coma scale verbal response: Orientated [place] coma scale motor response: Obey commands [place] coma scale total score: 15 SENSORY EXAM: Yes extremities (intact) Psych: COMMON NORMALS: speech normal SPEECH: Yes normal speech Skin: COMMON NORMALS: no rashes or lesions noted GENERAL SKIN EXAM: no rashes or lesions noted Course Vital Signs: Vital signs: Vital Signs Temperature 97.8 F 01/08/23 02:35 Pulse Rate 80 01/08/23 05:35 Respiratory Rate 14 01/08/23 05:35 Blood Pressure 131/84 01/08/23 05:35 Pulse Oximetry 97 01/08/23 05:35 Oxygen Delivery Me thod Room Air 01/08/23 02:35 MDM - Extremity (Nontraumatic) Medical Decision Making X-ray shows similar to worsening appearance of the fracture likely due to reinjury. She is encouraged to keep wearing her hard sold shoes, such as the boots she has on. She has given injection of norflex for the muscular neck pain. She'll be discharged. Outpatient follow up with her primary. Lab Data Radiology Impressions Toe X-Ray 01/07/23 22:34 IMPRESSION: Fracture of the distal aspect of 5th proximal phalanx. However there is probably new involvement of the articular aspect on the current exam and probable worsening of displacement. See discussion above. Continued follow-up should be obtained. All radiology interpretation(s) finalized by discharge Discharge Plan Discharge Patient Disposition: Home Clinical Impression: Fracture of fifth toe, right, closed, Acute neck pain Condition: Stable Prescriptions: No Action cyanocobalamin (vitamin B-12) 1,000 mcg/mL kit 1,000 mcg IM ONCE Qty: 1 0RF albuterol sulfate [ProAir HFA] 90 mcg/actuation HFA aerosol inhaler See Rx Instructions .ROUTE .COMPLEX Qty: 8.5 5RF Dose Instruction: INHALE 2 PUFFS EVERY SIX HOURS NEEDED FOR SHORTNESS OF BREATH OR WHEEZING Rx Instructions: INHALE 2 PUFFS EVERY SIX HOURS NEEDED FOR SHORTNESS OF BREATH OR WHEEZING hydrocodone-acetaminophen 5-325 mg tablet 1 tab PO Q8H PRN (Reason: pain) 7 Days Qty: 10 0RF atorvastatin 40 mg tablet See Rx Instructions .ROUTE .COMPLEX Qty: 30 5RF Dose Instruction: TAKE 1 TABLET BY MOUTH EVERY DAY Rx Instructions: TAKE 1 TABLET BY MOUTH EVERY DAY aripiprazole 2 mg tablet See Rx Instructions .ROUTE .COMPLEX Qty: 30 3RF Dose Instruction: TAKE ONE TABLET BY MOUTH DAILY Rx Instructions: TAKE ONE TABLET BY MOUTH DAILY bupropion HCl 300 mg tablet extended release 24 hr See Rx Instructions .ROUTE .COMPLEX Qty: 30 2RF Dose Instruction: TAKE ONE TABLET BY MOUTH IN THE MORNING Rx Instructions: TAKE ONE TABLET BY MOUTH IN THE MORNING cyanocobalamin (vitamin B-12) 1,000 mcg/mL solution See Rx Instructions .ROUTE .COMPLEX Qty: 15 0RF Dose Instruction: INJECT 1ML INTRAMUSCULAR (INTO THE MUSCLE) ONCE WEEKLY FOR 3 WEEKS THEN ONCE PER MONTH. Rx Instructions: Inject once per month. duloxetine 60 mg capsule,delayed release(DR/EC) See Rx Instructions .ROUTE .COMPLEX Qty: 60 3RF Dose Instruction: TAKE 2 CAPSULES BY MOUTH DAILY Rx Instructions: TAKE 2 CAPSULES BY MOUTH DAILY cyclobenzaprine 5 mg tablet See Rx Instructions .ROUTE .COMPLEX Qty: 30 5RF Dose Instruction: TAKE 5 MG BY MOUTH THREE TIMES DAILY NEEDED FOR MUSCLE SPASM Rx Instructions: TAKE 5 MG BY MOUTH THREE TIMES DAILY NEEDED FOR MUSCLE SPASM omeprazole 40 mg capsule,delayed release(DR/EC) See Rx Instructions .ROUTE .COMPLEX Qty: 90 1RF Dose Instruction: TAKE 1 CAPSULE BY MOUTH DAILY Rx Instructions: TAKE 1 CAPSULE BY MOUTH DAILY budesonide-formoterol [Symbicort] 160-4.5 mcg/actuation HFA aerosol inhaler See Rx Instructions .ROUTE .COMPLEX Qty: 10.2 5RF Dose Instruction: INHALE 2 INHALATIONS BY MOUTH TWICE DAILY Rx Instructions: INHALE 2 INHALATIONS BY MOUTH TWICE DAILY trazodone 100 mg tablet See Rx Instructions .ROUTE .COMPLEX Qty: 90 5RF Dose Instruction: TAKE THREE TABLETS BY MOUTH EVERY NIGHT AT BEDTIME NEEDED FOR INSOMNIA Rx Instructions: TAKE THREE TABLETS BY MOUTH EVERY NIGHT AT BEDTIME NEEDED FOR INSOMNIA aspirin [Adult Low Dose Aspirin] 81 mg tablet,delayed release (DR/EC) 81 mg PO DAILY Qty: 90 3RF nicotine 21 mg/24 hr patch 24 hour See Rx Instructions .ROUTE .COMPLEX Qty: 28 1RF Dose Instruction: APPLY 1 PATCH TRANSDERMALLY DAILY Rx Instructions: APPLY 1 PATCH TRANSDERMALLY DAILY ibuprofen 800 mg tablet See Rx Instructions .ROUTE .COMPLEX Qty: 60 5RF Dose Instruction: TAKE 1 TABLET BY MOUTH THREE TIMES DAILY NEEDED FOR PAIN Rx Instructions: TAKE 1 TABLET BY MOUTH THREE TIMES DAILY NEEDED FOR PAIN losartan 25 mg tablet See Rx Instructions .ROUTE .COMPLEX Qty: 30 2RF Dose Instruction: TAKE 1 TABLET BY MOUTH EVERY DAY Rx Instructions: TAKE 1 TABLET BY MOUTH EVERY DAY triamcinolone acetonide 0.1 % paste 1 applic dental BID Qty: 5 0RF Rx Instructions: use after food and/or drink and/or oral hygiene Lidocaine Viscous 2 % solution 1 applic mucous membrane Q3H PRN (Reason: pain) Qty: 100 0RF Discharge Orders: Discharge ED (Routine); Ordered 01/08/23 Ordered By: Fortunato Ward Referrals: Hilario Marroquin DO [Primary Care Provider] - 1-3 days Patient Instructions: Toe Fracture (ED), Acute Neck Pain (ED), Opioid Safety, Pain Management Activity Restrictions/Additional Instructions: Wear hard soled shoes to prevent reinjury of your toe. Return for fever, vomiting liquids, shortness of breath, other concerning symptoms. Follow-up with your doctor this week. Coding Level of Care Code ED Ivf Embryologist for Ysabel Beverly
== END 2023-01-08 05:35 | disposition home or self-care (01) ==
PROVIDERS: Emergency Provider Emergency Medicine; PCP Family Medicine
DX: S92.511A Displaced fracture of proximal phalanx of right lesser toe(s), initial encounter for closed fracture (principal); M54.2 Cervicalgia; Z79.82 Long term (current) use of aspirin; F17.210 Nicotine dependence, cigarettes, uncomplicated; J44.9 Chronic obstructive pulmonary disease, unspecified; I10 Essential (primary) hypertension; E78.5 Hyperlipidemia, unspecified; H35.30 Unspecified macular degeneration; X58.XXXA Exposure to other specified factors, initial encounter
CPT/HCPCS: 73660; 96372; 99284; J1885; J2360

== ENCOUNTER 2023-02-23 12:58 | Outpatient (CLI) | payer MEDICAID, SELFPAY ==
--- NOTE | 2023-02-23 13:15 | CT_ITS ---
WS: [id number] LDCT LUNG CANCER SCREENING HISTORY: screening TECHNIQUE: Axial imaging performed from the apices to 1 cm below the costophrenic angles. Coronal and sagittal reformats are submitted with axial MIP series. All CT scans at [facility] use at least one of these dose optimization techniques: automated exposure control; mA and/or kV adjustment per patient size (includes targeted exams where dose is matched to clinical indication); or iterativ e reconstruction. DLP: 49.2 DIvol: Mean CTDIvol: 1.10 (mGy) COMPARISON: 02/09/2022 Diagnostic quality: Satisfactory Lungs: Marked interstitial thickening and reticulations throughout both lungs. Scattered pulmonary op acifications. There is hazy opacification and groundglass attenuation diffusely throughout both lung zeng. There are a few nodules associated with the reticulations. There is no mass. Heart: Moderate cardiomegaly.. Other findings: Atherosclerosis aorta. Prior CABG. No adenopathy. There are numerous low-attenuation masses throughout the liver. These are most likely cysts. Cannot be further evaluated on a noncontras t CT. No adrenal mass. IMPRESSION: CT/CT lung screening [id number] LUNG-RADS: 2-Benign Appearance or Behavior FOLLOW UP: 12 Month: Continue annual screening with LDCT OTHER FINDINGS (S MODIFIER): None.
== END 2023-02-23 12:59 | disposition home or self-care (01) ==
PROVIDERS: PCP Family Medicine; Visit Provider Internal Medicine Pulmonary Disease
DX: Z12.2 Encounter for screening for malignant neoplasm of respiratory organs (principal); F17.210 Nicotine dependence, cigarettes, uncomplicated
CPT/HCPCS: 71271

== ENCOUNTER → 2023-05-30 09:50 | Outpatient (BNVA) | payer MEDICAID, SELFPAY | PROVIDERS: PCP Family Medicine; Visit Provider Family Medicine | DX: N39.0 Urinary tract infection, site not specified (principal) | CPT/HCPCS: 81000 ==

== ENCOUNTER 2023-07-29 12:06 | Emergency (ER) | payer MEDICAID, SELFPAY ==
[2023-07-29 12:19] VITALS: BP 159/79; PULSE 78; RESP 16; TEMP 36.7; O2SAT 100
--- NOTE | 2023-07-29 12:40 | CTR_ITS ---
PROCEDURE INFORMATION: Exam: CT Abdomen And Pelvis With Contrast Exam date and time: 07/29/2023 1:22 PM Age: 62 years old Clinical indication: Abdominal pain; Additional info: Bilateral flank pain, HX of kidney stones TECHNIQUE: Imaging protocol: Computed tomography of the abdomen and pelvis with contrast. Radiation optimization: All CT scans at this facility use at least one of these dose optimization techniques: automated exposure control; mA and/or kV adjustment per patient size (includes targeted exams where dose is matched to clinical indication); or iterative reconstruction. Contrast material: [id number]; Contrast volume: 100 ml; Contrast route: INTRAVENOUS (IV); COMPARISON: CT lung screening [id number] 02/23/2023 1:14 PM RADIATION DOSE METRICS: Total DLP (mGy-cm): 474.13 FINDINGS: Liver: Numerous hepatic cysts are present. Gallbladder and bile ducts: Normal. No calcified stones. No ductal dilation. Pancreas: Normal. No ductal dilation. Spleen: Normal. No splenomegaly. Adrenal glands: Normal. No mass. Kidneys and ureters: Small renal cysts are present on the left side. Slightly atrophic right kidney with areas of diminished function, please correlate clinically for pyelonephritis. Stomach and bowel: Diverticulosis without evidence of diverticulitis. Mural fat deposition throughout colon. Appendix: No evidence of appendicitis. Intraperitoneal space: Unremarkable. No free air. No significant fluid collection. Vasculature: Unremarkable. No abdominal aortic aneurysm. Lymph nodes: Unremarkable. No enlarged lymph nodes. Urinary bladder: The urinary bladder is of low volume but the wall is probably thickened. No urinary calculus. Reproductive: Hysterectomy. Bones/joints: Unremarkable. No acute fracture. Soft tissues: Unremarkable. Other findings: No obstructive changes. CT/CT abdomen pelvis w con* [id number] IMPRESSION: Slightly patchy nephrogram in the slightly smaller right kidney. Correlate clinically to better evaluate for pyelonephritis. COMMENTS: Consistent with the [employer]'s Incidental Findings Committee white paper (J Am Maude Radiol 2018): Any incidental renal lesion less than 1 cm or classified as too small to characterize, or any incidental cystic renal lesion characterized as simple-appearing, is likely benign. No follow-up imaging is recommended for these lesions per consensus recommendations based on imaging criteria.
--- NOTE | 2023-07-29 12:41 | W.ED.GENADLT ---
HPI - General Adult General: Chief complaint: General Medical Stated complaint: FLANK PAIN Time Seen by Provider: 07/29/23 12:16 Source: patient and EMS Mode of arrival: EMS Limitations: no limitations History of Present Illness: Patient with a by ambulance for severe bilateral flank pain. Was given pain medication on the ambulance and reports no pain at this time. Reports that starting last night she started having severe flank pain that started on the left with a transition to the right. She reports the pain is excruciating and bring her to tears. History of kidney stones, only previous abdominal surgeries were single oophorectomy and 2 C-sections. Still has 1 ovary. Still has gallbladder and appendix etc. History may be somewhat limited by presbycusis. Review of Systems General: Reports: 10 or more systems reviewed and unremarkable except in HPI and below PFSH ED PFSH: Medical History Psychiatric care ROBERTO (obstructive sleep apnea) DDD (degenerative disc disease), cervical Essential hypertension Asthma COPD (chronic obstructive pulmonary disease) Depression with anxiety Hyperlipidemia Chronic low back pain Macular degeneration Surgical History H/O section S/P AVR (aortic valve replacement) History of open heart surgery Family History Other Alzheimer disease Cancer Social History Smoking and tobacco/nicotine status: current every day tobacco/nicotine user cigarettes Packs smoked per day: 1 Years cigarettes smoked: 42 [ Other cigarette details: started at age 19] Quit status (tobacco/nicotine): has tried quititng Number of times tried to quit tobacco: 4 Alcohol intake: never Substance/Drug Use: never Female Reproductive History: Spontaneous abortions: No Physical Exam Const: COMMON NORMALS: no acute distress, average body habitus, patient oriented x3, healthy appearing, alert and well nourished GENERAL APPEARANCE: well kempt and well developed HENMT: COMMON NORMALS: normocephalic, atraumatic, external ears normal and moist oral mucous membranes HEAD & SCALP: normocephalic and atraumatic EXTERNAL EAR: Yes external ears normal Eye: COMMON NORMALS: Equal, round and reactive pupils present, EOMs intact bilaterally and conjunctivae normal CONJUNCTIVA: Yes conjunctivae normal PUPIL: Yes Equal, round and reactive pupils present Neck/C-Spine: COMMON NORMALS: full ROM, no lymphadenopathy and supple Chest: CHEST: Yes Symmetrical chest wall rise and No Surgical scars present (Chest) Resp: COMMON NORMALS: normal respiratory effort, No retractions, No use of accessory muscles and clear to auscultation bilaterally AUSCULTATION: clear to auscultation bilaterally Cardio: COMMON NORMALS: regular rate, regular rhythm, S1 normal heart sound present, S2 normal heart sound present, No gallops present (Cardio), No clicks present (Cardio), No murmurs present (Cardio) and No rub (Cardio) RATE: regular rate RHYTHM: regular rhythm HEART SOUNDS: S1 normal heart sound present, S2 normal heart sound present and no murmurs PERIPHERAL PULSES: other (Radial pulses 2+ and symmetric) GI: COMMON NORMALS: Soft to palpation, non-tender and no masses INSPECTION: No abdominal distension PALPATION: Yes Soft to palpation, No Guarding due to palpation present (GI) and No Rebound tenderness present : COMMON NORMALS: Yes no CVA tenderness BLADDER/KIDNEY EXAM: Yes no CVA tenderness Back/Pelvis: COMMON NORMALS: no CVA tenderness Extremity: COMMON NORMALS: normal to inspection, full ROM, capillary refill normal and no clubbing, cyanosis or edema Neuro: COMMON NORMALS: patient oriented x3 SENSORIUM/ORIENTATION: Yes alert Psych: APPEARANCE: Yes well kempt Skin: COMMON NORMALS: no rashes or lesions noted, no wounds, turgor normal and no jaundice GENERAL SKIN EXAM: no rashes or lesions noted and turgor normal Course Reevaluation(s): Reevaluation #1: Feels fine, no further pain, ready for discharge. Time: 15:45 Vital Signs: Vital signs: Vital Signs Temperature 98.0 F 07/29/23 12:19 Pulse Rate 75 07/29/23 14:30 Respiratory Rate 16 07/29/23 12:19 Blood Pressure 138/87 07/29/23 13:19 Pulse Oximetry 95 07/29/23 14:30 Oxygen Delivery Me thod Room Air 07/29/23 14:30 [facility] - General Adult Medical Decision Making 62-year-old female comes in for flank pain started on left and right her severe. Got medicine in the ambulance and has complained of 0 pain since that time. No need for retreatment here in the ER for pain. White count is normal, platelets are slightly low. H&H is unremarkable. Chemistries are also unremarkable. Given the severity of pain patient expressed a CT scan of her abdomen pelvis was done which showed slightly patchy nephrogram of the right kidney however urine is clear with no signs of infection at all patient is not having no fever. No hematuria either. Reviewing the CT patient having any impaction or obstruction, definitely some scattered air-fluid and fecal layers to her colon. Maybe possibly some gas pains could have been the etiology. However no acute finding is found. Radiology read agrees. Patient be discharged home with prescription for Bentyl as needed. Medical Records I reviewed the patient's medical records. Lab Data I reviewed the patient's lab results. 07/29/23 12:49 07/29/23 12:49 Radiology Impressions Abdomen/Pelvis CT 07/29/23 12:40 IMPRESSION: Slightly patchy nephrogram in the slightly smaller right kidney. Correlate clinically to better evaluate for pyelonephritis. COMMENTS: Consistent with the [employer]'s Incidental Findings Committee white paper (J Am Maude Radiol 2018): Any incidental renal lesion less than 1 cm or classified as too small to characterize, or any incidental cystic renal lesion characterized as simple-appearing, is likely benign. No follow-up imaging is recommended for these lesions per consensus recommendations based on imaging criteria. Laboratory Results WBC 5.86 10^3/uL (3.29-11.43) 07/29/23 12:49 RBC 3.97 10^6/uL (3.85-5.65) 07/29/23 12:49 Hgb 12.70 g/dL (11.27-16.99) 07/29/23 12:49 Hct 39.5 % (36-47) 07/29/23 12:49 MCV 99.5 fl (85-98) H 07/29/23 12:49 MCH 32.0 pg (27-33) 07/29/23 12:49 MCHC 32.2 g/dL (30-55) 07/29/23 12:49 RDW 13.5 % (12.1-15.1) 07/29/23 12:49 Plt Count 92 10^3/cmm (157-399) L 07/29/23 12:49 MPV 12.1 fL (7.4-10.4) H 07/29/23 12:49 Neut % (Auto) 72.4 % 07/29/23 12:49 Lymph % (Auto) 18.3 % 07/29/23 12:49 [place] % (Auto) 6.7 % 07/29/23 12:49 Eos % (Auto) 1.5 % 07/29/23 12:49 Baso % (Auto) 0.9 % 07/29/23 12:49 Neut # (Auto) 4.25 10^3/uL (1.8-7.7) 07/29/23 12:49 Lymph # (Auto) 1.1 10^3/uL (0.8-4.8) 07/29/23 12:49 [place] # (Auto) 0.4 10^3/uL (0.2-0.9) 07/29/23 12:49 Eos # (Auto) 0.1 10^3/uL (0.0-0.8) 07/29/23 12:49 Baso # (Auto) 0.1 10^3/uL (0.0-0.1) 07/29/23 12:49 Nucleated RBC % (auto) 0 % 07/29/23 12:49 Nucleated RBCs # 0.0 /100WBC 07/29/23 12:49 Sodium 136 mmol/L (136-145) 07/29/23 12:49 Potassium 4.0 mmol/L (3.5-5.1) 07/29/23 12:49 Chloride 107 mmol/L (98-107) 07/29/23 12:49 Carbon Dioxide 20 mmol/L (22-29) L 07/29/23 12:49 Anion Gap 13.0 (5-19) 07/29/23 12:49 BUN 12 mg/dL (8-23) 07/29/23 12:49 Creatinine 0.9 mg/dL (0.5-0.9) 07/29/23 12:49 GFR Calculation 63.0 mL/min (90-130) L 07/29/23 12:49 Glucose 92 mg/dL (65-115) 07/29/23 12:49 Calculated Osmolality 281 mOsm/kg (285-295) L 07/29/23 12:49 Calcium 8.7 mg/dL (8.5-10.5) 07/29/23 12:49 Total Bilirubin 0.2 mg/dL (0.15-1.2) 07/29/23 12:49 AST 13 U/L (0-32) 07/29/23 12:49 ALT 8 U/L (0-33) 07/29/23 12:49 Alkaline Phosphatase 84 U/L (35-105) 07/29/23 12:49 Total Protein 6.1 g/dL (6.6-8.7) L 07/29/23 12:49 Albumin 3.4 g/dL (3.5-5.2) L 07/29/23 12:49 Globulin 2.7 g/dL (1.3-4.6) 07/29/23 12:49 Urine Color Colorless (Yellow) 07/29/23 12:10 Urine Appearance Clear (CLEAR) 07/29/23 12:10 Urine pH 6 (5-7) 07/29/23 12:10 Ur Specific [place] 1.005 (1.005-1.030) 07/29/23 12:10 Urine Protein Neg (Negative) 07/29/23 12:10 Urine Glucose (UA) Norm (Normal) 07/29/23 12:10 Urine Ketones Negative (Negative) 07/29/23 12:10 Urine Blood Neg (Negative) 07/29/23 12:10 Urine Nitrate Negative (Negative) 07/29/23 12:10 Urine Bilirubin Neg (Negative) 07/29/23 12:10 Urine Urobilinogen Norm mg/dL (Negative) 07/29/23 12:10 Ur Leukocyte Esterase Negative (Negative) 07/29/23 12:10 All radiology interpretation(s) finalized by discharge Discharge Plan Discharge Patient Disposition: Home Clinical Impression: Abdominal pain, Abdominal spasms Condition: Stable Prescriptions: New dicyclomine 20 mg tablet 20 mg PO BID PRN (Reason: abdominal pain) Qty: 20 0RF No Action bupropion HCl 200 mg tablet sustained-release 12 hr 200 mg PO QAM Qty: 30 1RF atorvastatin 40 mg tablet 40 mg PO DAILY ibuprofen 800 mg tablet 800 mg PO TID PRN (Reason: pain) omeprazole 40 mg capsule,delayed release(DR/EC) 40 mg PO DAILY aspirin 81 mg tablet,delayed release (DR/EC) 81 mg PO DAILY trazodone 100 mg tablet 300 mg PO BEDTIME PRN (Reason: sleep) losartan 25 mg tablet 25 mg PO DAILY albuterol sulfate 90 mcg/actuation HFA aerosol inhaler 2 puff inhalation Q6H PRN (Reason: Shortness Of Breath Or Wheezing) cyclobenzaprine 5 mg tablet 5 mg PO TID PRN (Reason: Muscle Spasm) duloxetine 60 mg capsule,delayed release(DR/EC) 120 mg PO QAM aripiprazole 2 mg tablet 2 mg PO BEDTIME Symbicort 160-4.5 mcg/actuation HFA aerosol inhaler 2 puff inhalation BID Discharge Orders: Discharge ED (Routine); Ordered 07/29/23 Ordered By: Roman Tang Referrals: Hilario Marroquin DO [Primary Care Provider] - Discharge Diet: Usual diet Discharge Activity: Resume usual activity Patient Instructions: Abdominal Pain (ED) Coding Level of Care Code ED Medical Authorization Specialist for Ysabel Beverly
[2023-07-29 12:52] LABS: Add Urine Microscopic? NO; Charge for UA Resulting for Rev
[2023-07-29 12:54] LABS: Basophils # 0.1 10^3/uL (0.0-0.1); Basophils % 0.9 %; Eosinophils # 0.1 10^3/uL (0.0-0.8); Eosinophils % 1.5 %; Hematocrit 39.5 % (36-47); Lymphocytes # 1.1 10^3/uL (0.8-4.8); Lymphocytes % 18.3 %; Mean Corpuscular HGB Conc 32.2 g/dL (30-55); Mean Corpuscular Volume 99.5 fl (85-98); Mean Platelet Volume 12.1 fL (7.4-10.4); Monocytes # 0.4 10^3/uL (0.2-0.9); Monocytes % 6.7 %; Neutrophils # 4.25 10^3/uL (1.8-7.7); Neutrophils % 72.4 %; Nucleated Red Blood Cells % 0 %; Platelet Count 92 10^3/cmm (157-399); Red Blood Count 3.97 10^6/uL (3.85-5.65); Red Cell Distribution Width 13.5 % (12.1-15.1); White Blood Count 5.86 10^3/uL (3.29-11.43)
[2023-07-29 12:57] LABS: Bilirubin Urine Neg (Negative); Blood Urine Neg (Negative); Glucose Urine UA Norm (Normal); Ketones Urine Negative (Negative); Leukocyte Esterase Urine Negative (Negative); Nitrate Urine Negative (Negative); Protein Urine Neg (Negative); Specific Gravity, Urine 1.005 (1.005-1.030); Urine Appearance Clear (CLEAR); Urine Color Colorless (Yellow); Urobilinogen Urine Norm (Negative); pH Urine 6 (5-7)
[2023-07-29 13:08] LABS: Slide Review Slide Review Perform
[2023-07-29 13:14] LABS: Alanine Aminotransferase 8 U/L (0-33); Albumin Level 3.4 g/dL (3.5-5.2); Alkaline Phosphatase 84 U/L (35-105); Aspartate Amino Transferase 13 U/L (0-32); Blood Urea Nitrogen 12 mg/dL (8-23); Calcium 8.7 mg/dL (8.5-10.5); Carbon Dioxide 20 mmol/L (22-29); Chloride 107 mmol/L (98-107); Creatinine Clr Calc Pharmacy 51.9958; Globulin 2.7 g/dL (1.3-4.6); Glucose 92 mg/dL (65-115); Osmolality Calculated 281 mOsm/kg (285-295); Sodium 136 mmol/L (136-145); Total Bilirubin 0.2 mg/dL (0.15-1.2); Total Protein 6.1 g/dL (6.6-8.7)
[2023-07-29 13:19] VITALS: BP 138/87; PULSE 75; O2SAT 98
[2023-07-29] MEDS: iohexol 350 mg/mL 500 mL Btl (per mL) IV (13:23)
[2023-07-29] MEDS: sodium chloride 0.9% 1,000 ML 999 ML IV (13:23)
[2023-07-29 14:30] VITALS: PULSE 75; O2SAT 95
[2023-07-29 16:02] VITALS: PULSE 80; O2SAT 98
== END 2023-07-29 16:03 | disposition home or self-care (01) ==
PROVIDERS: Emergency Provider Emergency Medicine; PCP Family Medicine
DX: R25.2 Cramp and spasm (principal); R10.9 Unspecified abdominal pain; Z79.82 Long term (current) use of aspirin; I10 Essential (primary) hypertension; J44.9 Chronic obstructive pulmonary disease, unspecified; E78.5 Hyperlipidemia, unspecified; H35.30 Unspecified macular degeneration; F17.210 Nicotine dependence, cigarettes, uncomplicated
CPT/HCPCS: 74177; 80053; 81003; 85025; 96360; 96361; 99285; J7030; Q9967

== ENCOUNTER → 2023-09-07 08:04 | Outpatient (BNVA) | payer SELFPAY | PROVIDERS: PCP Family Medicine; Visit Provider Nurse Practitioner Psychiatric/Mental Health | DX: F31.81 Bipolar II disorder (principal); Z79.899 Other long term (current) drug therapy | CPT/HCPCS: 80061; 83036 ==

== ENCOUNTER 2023-09-09 09:01 | Emergency (ER) | payer MEDICAID, SELFPAY ==
[2023-09-09 09:06] VITALS: BP 103/58; PULSE 115; RESP 15; TEMP 37.4; O2SAT 97; BMI 26.2
--- NOTE | 2023-09-09 09:27 | XRR_ITS ---
PROCEDURE INFORMATION: Exam: XR Left Knee Exam date and time: 09/09/2023 9:31 AM Age: 62 years old Clinical indication: Injury or trauma; Fall; Blunt trauma; Knee; Left TECHNIQUE: Imaging protocol: Radiologic exam of the left knee. Views: 3 views. COMPARISON: No relevant prior studies available. FINDINGS: Bones/joints: Negative for acute bony abnormality. Narrowing of the medial compartment consistent with mild osteoarthritis Soft tissues: Soft tissue edema is seen in the medial aspect of the knee XR/XR knee LT 3V* [id number] IMPRESSION: . 1. Mild osteoarthritis 2. Otherwise No acute findings.
--- NOTE | 2023-09-09 09:37 | ED_ITS ---
HPI - Extremity Problem 2 General: Chief complaint: Extremity Injury, Lower Stated complaint: LEFT KNEE PAIN S/P FALL Time Seen by Provider: 09/09/23 09:21 History of Present Illness: 62-year-old female presents with swellin g, erythema, and tenderness to the left knee. She reports that a few days ago she stepped in a hole and fell. She has abrasion over her left knee with significant erythema and swelling to it. She reports that she was seen yesterday but they did not start her on antibiotics and there was nothing done. Patient complains of worsening of her symptoms. PFSH ED 2 PFSH: Medical History Psychiatric care ROBERTO (obstructive sleep apnea) DDD (degenerative disc disease), cervical Essential hypertension Asthma COPD (chronic obstructive pulmonary disease) Depression with anxiety Hyperlipidemia Chronic low back pain Macular degeneration Surgical History H/O section S/P AVR (aortic valve replacement) History of open heart surgery Family History Other Alzheimer disease Cancer Social History (Updated 09/07/23 @ 09:35 by Salome Galeano RN) Smoking and tobacco/nicotine status: current every day tobacco/nicotine user cigarettes Packs smoked per day: 1 Years cigarettes smoked: 42 [ Other cigarette details: started at age 19] Quit status (tobacco/nicotine): not considering quitting Second hand smoke exposure: Yes Alcohol intake: never Substance/Drug Use: never Adopted: No Caregiver/support person: No Lives independently: No Household members: other Details: boarding home in [place] Housing: House Marital status: Number of children: 2 Highest education level completed: Some College, No Degree Current occupational status: disabled Pets and animals: Yes Pets & animals: cat(s) and dog(s) Leisure activites: reading Sexually active: No Do you think of yourself as: Straight/Heterosexual Current gender identity: Female Yvorse/Judaism: None Special yvrose needs: No Agree to transfusion: Yes Female Reproductive History: Spontaneous abortions: No Course 2 Vital Signs: Vital signs: Vital Signs Temperature 99.3 F 09/09/23 09:06 Pulse Rate 115 H 09/09/23 09:06 Respiratory Rate 15 09/09/23 09:06 Blood Pressure 103/58 09/09/23 09:06 Pulse Oximetry 97 09/09/23 09:06 MDM - Extremity (Nontraumatic) Medical Decision Making Patient with cellulitis to the left knee. Patient was recommended admission however she declined. I will start her on clindamycin. Patient was given return precautions. She was stable upon discharge as she requested. Lab Data 09/09/23 09:54 09/09/23 09:54 Laboratory Results WBC 15.84 10^3/uL (3.29-11.43) H 09/09/23 09:54 RBC 3.95 10^6/uL (3.85-5.65) 09/09/23 09:54 Hgb 12.10 g/dL (11.27-16.99) 09/09/23 09:54 Hct 37.3 % (36-47) 09/09/23 09:54 MCV 94.4 fl (85-98) 09/09/23 09:54 MCH 30.6 pg (27-33) 09/09/23 09:54 MCHC 32.4 g/dL (30-55) 09/09/23 09:54 RDW 13.3 % (12.1-15.1) 09/09/23 09:54 Plt Count 132 10^3/cmm (157-399) L 09/09/23 09:54 MPV 11.4 fL (7.4-10.4) H 09/09/23 09:54 Neut % (Auto) 88.5 % 09/09/23 09:54 Lymph % (Auto) 3.7 % 09/09/23 09:54 [place] % (Auto) 6.8 % 09/09/23 09:54 Eos % (Auto) 0.0 % 09/09/23 09:54 Baso % (Auto) 0.2 % 09/09/23 09:54 Neut # (Auto) 14.04 10^3/uL (1.8-7.7) H 09/09/23 09:54 Lymph # (Auto) 0.6 10^3/uL (0.8-4.8) L 09/09/23 09:54 [place] # (Auto) 1.1 10^3/uL (0.2-0.9) H 09/09/23 09:54 Eos # (Auto) 0.0 10^3/uL (0.0-0.8) 09/09/23 09:54 Baso # (Auto) 0.0 10^3/uL (0.0-0.1) 09/09/23 09:54 Nucleated RBC % (auto) 0 % 09/09/23 09:54 Nucleated RBCs # 0.0 /100WBC 09/09/23 09:54 Sodium 134 mmol/L (136-145) L 09/09/23 09:54 Potassium 3.6 mmol/L (3.5-5.1) 09/09/23 09:54 Chloride 98 mmol/L (98-107) 09/09/23 09:54 Carbon Dioxide 22 mmol/L (22-29) 09/09/23 09:54 Anion Gap 17.6 (5-19) 09/09/23 09:54 BUN 17 mg/dL (8-23) 09/09/23 09:54 Creatinine 1.2 mg/dL (0.5-0.9) H 09/09/23 09:54 GFR Calculation 45.2 mL/min (90-130) L 09/09/23 09:54 Glucose 126 mg/dL (65-115) H 09/09/23 09:54 Calculated Osmolality 281 mOsm/kg (285-295) L 09/09/23 09:54 Calcium 8.8 mg/dL (8.5-10.5) 09/09/23 09:54 Total Bilirubin 0.8 mg/dL (0.15-1.2) 09/09/23 09:54 AST 15 U/L (0-32) 09/09/23 09:54 ALT 10 U/L (0-33) 09/09/23 09:54 Alkaline Phosphatase 115 U/L (35-105) H 09/09/23 09:54 Total Protein 7.5 g/dL (6.6-8.7) 09/09/23 09:54 Albumin 3.5 g/dL (3.5-5.2) 09/09/23 09:54 Globulin 4.0 g/dL (1.3-4.6) 09/09/23 09:54 XR interpretation done by ED provider, pending radiology final review Discharge Plan Discharge Patient Disposition: Home Clinical Impression: Cellulitis of left knee Condition: Stable Prescriptions: New clindamycin HCl 300 mg capsule 300 mg PO Q6H 10 Days Qty: 40 0RF naproxen 500 mg tablet 500 mg PO BID PRN (Reason: pain) Qty: 20 0RF No Action bupropion HCl 200 mg tablet sustained-release 12 hr 200 mg PO QAM Qty: 30 1RF Symbicort 160-4.5 mcg/actuation HFA aerosol inhaler See Rx Instructions .ROUTE .COMPLEX Qty: 11 0RF Dose Instruction: Inhale 2 puffs by mouth twice daily Rx Instructions: Inhale 2 puffs by mouth twice daily atorvastatin 40 mg tablet See Rx Instructions .ROUTE .COMPLEX Qty: 30 0RF Dose Instruction: Take 1 tablet by mouth once daily Rx Instructions: Take 1 tablet by mouth once daily ibuprofen 800 mg tablet 800 mg PO TID PRN (Reason: pain) omeprazole 40 mg capsule,delayed release(DR/EC) 40 mg PO DAILY aspirin 81 mg tablet,delayed release (DR/EC) 81 mg PO DAILY trazodone 100 mg tablet 300 mg PO BEDTIME PRN (Reason: sleep) losartan 25 mg tablet 25 mg PO DAILY albuterol sulfate 90 mcg/actuation HFA aerosol inhaler 2 puff inhalation Q6H PRN (Reason: Shortness Of Breath Or Wheezing) cyclobenzaprine 5 mg tablet 5 mg PO TID PRN (Reason: Muscle Spasm) duloxetine 60 mg capsule,delayed release(DR/EC) 120 mg PO QAM aripiprazole 2 mg tablet 2 mg PO BEDTIME dicyclomine 20 mg tablet 20 mg PO BID PRN (Reason: abdominal pain) Qty: 20 0RF Discharge Orders: Discharge ED (Routine); Ordered 09/09/23 Ordered By: Harjit Dale Referrals: Hilario Marroquin DO [Primary Care Provider] - Discharge Diet: Advance as tolerated Discharge Activity: Resume usual activity Patient Instructions: Cellulitis (ED), Opioid Safety, Pain Management Activity Restrictions/Additional Instructions: Please follow-up with your primary care provider in the next 2 to 3 days. Please be sure you take antibiotics as they are prescribed. Return the ER with any concerns or worsening of condition. Coding Level of Care Code ED Orthopedic Shoes Salesperson for Ysabel Beverly
[2023-09-09 10:03] LABS: Basophils % 0.2 %; Hematocrit 37.3 % (36-47); Lymphocytes # 0.6 10^3/uL (0.8-4.8); Lymphocytes % 3.7 %; Mean Corpuscular HGB Conc 32.4 g/dL (30-55); Mean Corpuscular Hemoglobin 30.6 pg (27-33); Mean Corpuscular Volume 94.4 fl (85-98); Mean Platelet Volume 11.4 fL (7.4-10.4); Monocytes # 1.1 10^3/uL (0.2-0.9); Monocytes % 6.8 %; Neutrophils # 14.04 10^3/uL (1.8-7.7); Neutrophils % 88.5 %; Nucleated Red Blood Cells % 0 %; Platelet Count 132 10^3/cmm (157-399); Red Blood Count 3.95 10^6/uL (3.85-5.65); Red Cell Distribution Width 13.3 % (12.1-15.1); White Blood Count 15.84 10^3/uL (3.29-11.43)
[2023-09-09 10:21] LABS: Alanine Aminotransferase 10 U/L (0-33); Albumin Level 3.5 g/dL (3.5-5.2); Alkaline Phosphatase 115 U/L (35-105); Anion Gap 17.6 (5-19); Aspartate Amino Transferase 15 U/L (0-32); Blood Urea Nitrogen 17 mg/dL (8-23); Calcium 8.8 mg/dL (8.5-10.5); Carbon Dioxide 22 mmol/L (22-29); Chloride 98 mmol/L (98-107); Glomerular Filtration Rate 45.2 mL/min (90-130); Glucose 126 mg/dL (65-115); Osmolality Calculated 281 mOsm/kg (285-295); Potassium 3.6 mmol/L (3.5-5.1); Sodium 134 mmol/L (136-145); Total Bilirubin 0.8 mg/dL (0.15-1.2); Total Protein 7.5 g/dL (6.6-8.7)
[2023-09-09 10:22] LABS: Creatinine Clr Calc Pharmacy 38.5898
[2023-09-09] MEDS: ketorolac 30 mg/mL INJ 15 MG IVP (11:08)
[2023-09-09] MEDS: clindamycin 600 MG/50 ML PREMIX 100 MG IV (11:09)
--- NOTE | 2023-09-09 11:57 | PC.NURSE ---
Called patient's prescriptions in to [facility] pharmacy in [place].
== END 2023-09-09 11:58 | disposition home or self-care (01) ==
PROVIDERS: Emergency Provider Student in an Organized Health Care Education/Training Program; PCP Family Medicine
DX: L03.116 Cellulitis of left lower limb (principal); Z79.82 Long term (current) use of aspirin; I10 Essential (primary) hypertension; J44.9 Chronic obstructive pulmonary disease, unspecified; E78.5 Hyperlipidemia, unspecified; H35.30 Unspecified macular degeneration; F17.210 Nicotine dependence, cigarettes, uncomplicated
CPT/HCPCS: 36415; 73562; 80053; 85025; 96374; 96375; 99284; J1885; J3490

== ENCOUNTER → 2023-09-19 12:22 | Outpatient (BNVA) | payer MEDICAID, SELFPAY ==
[2023-09-12 13:47] VITALS: BP 101/46; BMI 26.2
== END ==
PROVIDERS: PCP Family Medicine; Visit Provider Nurse Practitioner
DX: M25.562 Pain in left knee (principal); L03.116 Cellulitis of left lower limb
CPT/HCPCS: 36415; 73560; 73565; 85025; 86140; 99204

== ENCOUNTER 2023-09-20 17:50 | Emergency (ER) | payer MEDICAID, SELFPAY ==
[2023-09-12 13:47] VITALS: BP 101/46; BMI 26.2
[2023-09-20] VITALS (9 sets, daily range): BP systolic 106–126; BP diastolic 47–70; PULSE 69–81; RESP 16–20; TEMP 36.7; O2SAT 93–99
--- NOTE | 2023-09-20 18:30 | CTR_ITS ---
PROCEDURE INFORMATION: Exam: CT Left Lower Extremity Without Contrast, Knee Exam date and time: 09/20/2023 7:28 PM Age: 62 years old Clinical indication: Injury or trauma; Fall; Blunt trauma; Left; Injury details: Patient sys she feel in a hole and scraped up her knee. Cellulitis/abscess; Additional info: Trauma with cellulitis/ abscess TECHNIQUE: Imaging protocol: CT of the left lower extremity without contrast was performed. Exam focused on the knee. Radiation optimization: All CT scans at this facility use at least one of these dose optimization techniques: automated exposure control; mA and/or kV adjustment per patient size (includes targeted exams where dose is matched to clinical indication); or iterative reconstruction. COMPARISON: CR XR knees AP WB w LT lmt ORTH 09/19/2023 12:43 PM RADIATION DOSE METRICS: Total DLP (mGy-cm): 312 FINDINGS: Bones/joints: No evidence of acute fracture or subluxation. Remote proximal MCL avulsive injury noted with bony spurring (Cyrus-Stieda). Trace joint effusion. Soft tissues: Prominent volar soft tissue edema/skin thickening compatible with cellulitis and/or contusion in the proper clinical setting. There is an ill-defined thin 1 cm fluid collection in the prepatellar soft tissues, possibly reflecting phlegmon/developing abscess. No gross evidence of organized collection within limitations of a noncontrast exam. No soft tissue air to suggest fasciitis. No evidence of hematoma. CT/CT knee LT wo con* [id number] IMPRESSION: 1. Prominent volar soft tissue edema/skin thickening compatible with cellulitis and/or contusion in the proper clinical setting. There is an ill-defined thin 1 cm fluid collection in the prepatellar soft tissues, possibly reflecting phlegmon/developing abscess.
--- NOTE | 2023-09-20 18:35 | W.ED.WOUNDLC ---
HPI - Wound/Laceration General: Chief Complaint: Wound/Laceration Stated Complaint: Wound - post fall 1x week Time Seen by Provider: 09/20/23 18:18 History of Present Illness: 62-year-old female presents emergency department chief complaint of ongoing left knee swelling and cellulitis as well as infection that she sustained superficially it has been ongoing progressing worse for last couple of weeks patient was seen here roughly 10 days ago in the ER started on antibiotics as well as then seen by primary care and followed by orthopedics yesterday in which recommend close monitoring the patient swelling and redness has improved however patient does report increased pain patient does have several areas of where she is having ulcers versus locations of small abscess notated to the anterior knee she reports is able to walk on it reports no recent fevers or chills she is taking her antibiotics as prescribed by both orthopedics and primary care patient presents to the ER for further investigation and management. The patient has no other complaints. Associated symptoms: Denies chills, fever(s), nausea or vomiting Review of Systems General: Reports: 10 or more systems reviewed and unremarkable except in HPI and below Const: Denies: fever(s), chills, fatigue or malaise Eyes: Denies: change in vision or blurry vision Card: Denies: chest pain or palpitations Resp: Denies: dyspnea or productive cough GI: Denies: abdominal pain, nausea or vomiting : Denies: flank pain Musc: Denies: extremity pain or extremity swelling Skin/Breast: Reports: erythema, skin tenderness, skin swelling, sores, changing lesions, non-healing lesions, lesions and changes in skin color Neuro: Denies: headache(s) Psych: Denies: anxiety or depression Trey/Lymph: Denies: easy bleeding All/Imm: Denies: urticaria, throat swelling or facial swelling PFSH ED PFSH: Medical History Acute pain of left knee Psychiatric care ROBERTO (obstructive sleep apnea) DDD (degenerative disc disease), cervical Essential hypertension Asthma COPD (chronic obstructive pulmonary disease) Depression with anxiety Hyperlipidemia Chronic low back pain Macular degeneration Surgical History H/O section S/P AVR (aortic valve replacement) History of open heart surgery Family History Other Alzheimer disease Cancer Social History Smoking and tobacco/nicotine status: current every day tobacco/nicotine user cigarettes Packs smoked per day: 1 Years cigarettes smoked: 42 [ Other cigarette details: started at age 19] Quit status (tobacco/nicotine): not considering quitting Second hand smoke exposure: Yes Alcohol intake: never Substance/Drug Use: never Adopted: No Caregiver/support person: No Lives independently: No Household members: other Details: boarding home in [place] Housing: House Marital status: Number of children: 2 Highest education level completed: Some College, No Degree Current occupational status: disabled Pets and animals: Yes Pets & animals: cat(s) and dog(s) Leisure activites: reading Sexually active: No Do you think of yourself as: Straight/Heterosexual Current gender identity: Female Yvrose/Taoism: None Special yvrose needs: No Agree to transfusion: Yes Female Reproductive History: Spontaneous abortions: No Physical Exam Const: COMMON NORMALS: no acute distress, patient oriented x3 and healthy appearing HENMT: COMMON NORMALS: normocephalic and atraumatic HEAD & SCALP: normocephalic and atraumatic Eye: COMMON NORMALS: Equal, round and reactive pupils present and EOMs intact bilaterally PUPIL: Yes Equal, round and reactive pupils present Neck/C-Spine: COMMON NORMALS: full ROM, supple and no JVD Lymph: LYMPHATIC: no lymphadenopathy noted Chest: COMMONS NORMALS: normal inspection of the chest and normal palpation of entire chest wall Resp: COMMON NORMALS: normal respiratory effort, No retractions and clear to auscultation bilaterally EFFORT & INSPECTION: Yes able to speak in complete sentences and Yes symmetric chest movement AUSCULTATION: clear to auscultation bilaterally Cardio: COMMON NORMALS: no JVD, regular rate and regular rhythm RATE: regular rate RHYTHM: regular rhythm GI: COMMON NORMALS: Normal to inspection, nondistended, normoactive bowel sounds present, Soft to palpation and non-tender INSPECTION: Yes normal to inspection PALPATION: Yes Soft to palpation : COMMON NORMALS: Yes no CVA tenderness BLADDER/KIDNEY EXAM: Yes no CVA tenderness Back/Pelvis: COMMON NORMALS: no CVA tenderness Extremity: NARRATIVE EXTREMITY EXAM: What appears to be cellulitis appreciated to the anterior knee no obvious articular involvement appreciated several areas of ulceration with purulent discharge expressed the cellulitis and erythema from it appears to be improved there is a [place] drawn yesterday in which she is backing off of no obvious ballotable patella or effusion is noted neurovascularly intact distally Neuro: COMMON NORMALS: patient oriented x3, CN's II-XII intact bilaterally, moves all extremities and no focal motor deficits Psych: COMMON NORMALS: mental status grossly normal, Normal thought process present, cooperative and normal affect THOUGHT PROCESS: Normal thought process present Skin: NARRATIVE SKIN EXAM: Erythema present to the anterior left knee no effusion appreciated negative ballotable bullet patella appreciated appears to be preseptal in nature several ulcers appreciated with purulent discharge expressed and clear serosanguineous drainage appreciated Course Vital Signs: Vital signs: Vital Signs Temperature 98.1 F 09/20/23 17:56 Pulse Rate 79 09/20/23 19:30 Respiratory Rate 16 09/20/23 18:46 Blood Pressure 116/64 09/20/23 19:30 Pulse Oximetry 95 09/20/23 19:30 Oxygen Delivery Me thod Room Air 09/20/23 19:30 MDM - Wound/Laceration Medical Decision Making Due to patient's symptoms and condition CT imaging of the left lower extremity will be obtained to further rule out any concerns of intra-articular involvement patient will have basic wound care applied to the location as well as wound cultures obtained and repeat lab work will continue to follow. Imaging came back reassuring there is a previous small prepatellar cellulitis and abscess formation we will be giving her a dose of clindamycin remainder lab work came back unremarkable nothing intra-articular appreciated. Will continue to follow anticipate discharge home pending IV antibiotics. Did advise patient further follow-up with her doctor for further assessment and management in which to return the interim if any of her symptoms persist or worse. Lab Data 09/20/23 19:18 09/20/23 19:[address] 09/20/23 18:30 IMPRESSION: 1. Prominent volar soft tissue edema/skin thickening compatible with cellulitis and/or contusion in the proper clinical setting. There is an ill-defined thin 1 cm fluid collection in the prepatellar soft tissues, possibly reflecting phlegmon/developing abscess. Laboratory Results WBC 6.83 10^3/uL (3.29-11.43) 09/20/23 19:18 RBC 2.98 10^6/uL (3.85-5.65) L 09/20/23 19:18 Hgb 9.20 g/dL (11.27-16.99) L 09/20/23 19:18 Hct 31.8 % (36-47) L 09/20/23 19:18 MCV 106.7 fl (85-98) H 09/20/23 19:18 MCH 30.9 pg (27-33) 09/20/23 19:18 MCHC 28.9 g/dL (30-55) L D 09/20/23 19:18 RDW 14.5 % (12.1-15.1) 09/20/23 19:18 Plt Count 231 10^3/cmm (157-399) 09/20/23 19:18 MPV 10.2 fL (7.4-10.4) 09/20/23 19:18 Neut % (Auto) 67.8 % 09/20/23 19:18 Lymph % (Auto) 23.6 % 09/20/23 19:18 [place] % (Auto) 5.6 % 09/20/23 19:18 Eos % (Auto) 0.1 % 09/20/23 19:18 Baso % (Auto) 0.6 % 09/20/23 19:18 Neut # (Auto) 4.63 10^3/uL (1.8-7.7) 09/20/23 19:18 Lymph # (Auto) 1.6 10^3/uL (0.8-4.8) 09/20/23 19:18 [place] # (Auto) 0.4 10^3/uL (0.2-0.9) 09/20/23 19:18 Eos # (Auto) 0.0 10^3/uL (0.0-0.8) 09/20/23 19:18 Baso # (Auto) 0.0 10^3/uL (0.0-0.1) 09/20/23 19:18 Nucleated RBC % (auto) 0 % 09/20/23 19:18 Nucleated RBCs # 0.0 /100WBC 09/20/23 19:18 Sodium 139 mmol/L (136-145) 09/20/23 19:18 Potassium 3.8 mmol/L (3.5-5.1) 09/20/23 19:18 Chloride 113 mmol/L (98-107) H 09/20/23 19:18 Carbon Dioxide 16 mmol/L (22-29) L 09/20/23 19:18 Anion Gap 13.8 (5-19) 09/20/23 19:18 BUN 8 mg/dL (8-23) 09/20/23 19:18 Creatinine 1.1 mg/dL (0.5-0.9) H 09/20/23 19:18 GFR Calculation 50.0 mL/min (90-130) L 09/20/23 19:18 Glucose 73 mg/dL (65-115) 09/20/23 19:18 Calculated Osmolality 285 mOsm/kg (285-295) 09/20/23 19:18 Calcium 7.9 mg/dL (8.5-10.5) L 09/20/23 19:18 Total Bilirubin 0.2 mg/dL (0.15-1.2) 09/20/23 19:18 AST 13 U/L (0-32) 09/20/23 19:18 ALT 8 U/L (0-33) 09/20/23 19:18 Alkaline Phosphatase 81 U/L (35-105) 09/20/23 19:18 C-Reactive Protein 28.3 mg/L (0.0-4.9) H 09/20/23 19:18 Total Protein 6.6 g/dL (6.6-8.7) 09/20/23 19:18 Albumin 2.7 g/dL (3.5-5.2) L 09/20/23 19:18 Globulin 3.9 g/dL (1.3-4.6) 09/20/23 19:18 All radiology interpretation(s) finalized by discharge Discharge Plan Discharge Patient Disposition: Home Clinical Impression: Prepatellar abscess, Abscess or cellulitis of knee Condition: Stable Prescriptions: New hydrocodone-acetaminophen 5-325 mg tablet 1 tab PO Q8H PRN (Reason: pain) Qty: 14 0RF clindamycin HCl 300 mg capsule 300 mg PO Q6H 10 Days Qty: 40 0RF No Action Debrox 6.5 % drops 5 drp otic (ear) DAILY 4 Days Qty: 15 0RF duloxetine 60 mg capsule,delayed release(DR/EC) 120 mg PO QAM Qty: 30 5RF atorvastatin 40 mg tablet See Rx Instructions .ROUTE .COMPLEX Qty: 30 5RF Dose Instruction: Take 1 tablet by mouth once daily Rx Instructions: Take 1 tablet by mouth once daily losartan 25 mg tablet 25 mg PO DAILY Qty: 90 1RF trazodone 100 mg tablet 300 mg PO BEDTIME PRN (Reason: sleep) Qty: 30 2RF ciprofloxacin HCl 500 mg tablet 500 mg PO Q12H Qty: 20 0RF sulfamethoxazole-trimethoprim [Bactrim DS] 800-160 mg tablet 1 tab PO BID Qty: 20 0RF Rx Instructions: Drink plenty of water with this medication. Symbicort 160-4.5 mcg/actuation HFA aerosol inhaler See Rx Instructions .ROUTE .COMPLEX Qty: 11 0RF Dose Instruction: Inhale 2 puffs by mouth twice daily Rx Instructions: Inhale 2 puffs by mouth twice daily aripiprazole 2 mg tablet 2 mg PO BEDTIME Qty: 30 0RF Rx Instructions: Take one tablet daily at bedtime bupropion HCl 200 mg tablet sustained-release 12 hr 200 mg PO QAM Qty: 30 0RF Rx Instructions: Take one tablet by mouth every morning ibuprofen 800 mg tablet 800 mg PO TID PRN (Reason: pain) omeprazole 40 mg capsule,delayed release(DR/EC) 40 mg PO DAILY aspirin 81 mg tablet,delayed release (DR/EC) 81 mg PO DAILY albuterol sulfate 90 mcg/actuation HFA aerosol inhaler 2 puff inhalation Q6H PRN (Reason: Shortness Of Breath Or Wheezing) cyclobenzaprine 5 mg tablet 5 mg PO TID PRN (Reason: Muscle Spasm) dicyclomine 20 mg tablet 20 mg PO BID PRN (Reason: abdominal pain) Qty: 20 0RF naproxen 500 mg tablet 500 mg PO BID PRN (Reason: pain) Qty: 20 0RF Discharge Orders: Discharge ED (Routine); Ordered 09/20/23 Ordered By: Alonzo Wang Referrals: Hilario Marroquin DO [Primary Care Provider] - 1-3 days (Please further follow-up with the orthopedic physician or your family doctor in the next couple days for wound reevaluation) Discharge Diet: Diabetic Discharge Activity: Increase activity as tolerated Patient Instructions: Cellulitis (ED), Abscess (ED), Opioid Safety, Pain Management Activity Restrictions/Additional Instructions: Your primary started on new medication for your recurrent infection please continue your oral medication as well please take medications as prescribed please further follow-up with primary care or orthopedics next 2 to 3 days for wound reevaluation in which to return the interim if any of your symptoms persist or worse please keep the wounds clean dry intact and covered with triple antibiotic ointment and a dressing do not pick or scratch or mess with these lesions as it will impede the duration of time for your wounds to heal and additionally because reinfection on the wounds. Coding Level of Care Code ED Rock Climbing Instructor for Ysabel Beverly
[2023-09-20] MEDS: fentaNYL 50 mcg/mL INJ 2mL 25 MCG IVP (18:46)
[2023-09-20] MEDS: sodium chloride 0.9% 1,000 ML 999 ML IV (18:47)
[2023-09-20] MEDS: ondansetron 2 mg/ML SDV 2 mL 4 MG IVP (18:47)
[2023-09-20 19:24] LABS: Basophils % 0.6 %; Eosinophils % 0.1 %; Hematocrit 31.8 % (36-47); Lymphocytes # 1.6 10^3/uL (0.8-4.8); Lymphocytes % 23.6 %; Mean Corpuscular HGB Conc 28.9 g/dL (30-55); Mean Corpuscular Hemoglobin 30.9 pg (27-33); Mean Corpuscular Volume 106.7 fl (85-98); Mean Platelet Volume 10.2 fL (7.4-10.4); Monocytes # 0.4 10^3/uL (0.2-0.9); Monocytes % 5.6 %; Neutrophils # 4.63 10^3/uL (1.8-7.7); Neutrophils % 67.8 %; Nucleated Red Blood Cells % 0 %; Platelet Count 231 10^3/cmm (157-399); Red Blood Count 2.98 10^6/uL (3.85-5.65); Red Cell Distribution Width 14.5 % (12.1-15.1); White Blood Count 6.83 10^3/uL (3.29-11.43)
[2023-09-20 19:43] LABS: Alanine Aminotransferase 8 U/L (0-33); Albumin Level 2.7 g/dL (3.5-5.2); Alkaline Phosphatase 81 U/L (35-105); Anion Gap 13.8 (5-19); Aspartate Amino Transferase 13 U/L (0-32); Blood Urea Nitrogen 8 mg/dL (8-23); C Reactive Protein 28.3 mg/L (0.0-4.9); Calcium 7.9 mg/dL (8.5-10.5); Carbon Dioxide 16 mmol/L (22-29); Chloride 113 mmol/L (98-107); Creatinine Clr Calc Pharmacy 41.9502; Globulin 3.9 g/dL (1.3-4.6); Glucose 73 mg/dL (65-115); Osmolality Calculated 285 mOsm/kg (285-295); Potassium 3.8 mmol/L (3.5-5.1); Sodium 139 mmol/L (136-145); Total Bilirubin 0.2 mg/dL (0.15-1.2); Total Protein 6.6 g/dL (6.6-8.7)
[2023-09-20] MEDS: clindamycin 900 MG/50 ML PREMIX 100 MG IV (20:54)
== END 2023-09-20 21:42 | disposition home or self-care (01) ==
PROVIDERS: Emergency Provider Emergency Medicine; PCP Family Medicine
DX: L02.416 Cutaneous abscess of left lower limb (principal); L03.116 Cellulitis of left lower limb; Z79.82 Long term (current) use of aspirin; F17.210 Nicotine dependence, cigarettes, uncomplicated; I10 Essential (primary) hypertension; J44.9 Chronic obstructive pulmonary disease, unspecified; E78.5 Hyperlipidemia, unspecified; H35.30 Unspecified macular degeneration
CPT/HCPCS: 36415; 73700; 80053; 85025; 86140; 87070; 96361; 96374; 96375; 99285; J2405; J3010; J3490; J7030

== ENCOUNTER → 2023-09-22 10:27 | Outpatient (BNVA) | payer MEDICAID, SELFPAY ==
[2023-09-12 13:47] VITALS: BP 101/46; BMI 26.2
== END ==
PROVIDERS: PCP Family Medicine; Visit Provider Nurse Practitioner
DX: L03.116 Cellulitis of left lower limb (principal); M25.562 Pain in left knee
CPT/HCPCS: 99213

== ENCOUNTER 2023-10-19 12:45 | Emergency (ER) | payer MEDICAID, SELFPAY ==
[2023-09-12 13:47] VITALS: BP 101/46; BMI 26.2
[2023-10-19 12:47] VITALS: BP 143/90; PULSE 81; RESP 18; TEMP 36.8; O2SAT 97; BMI 27.3
--- NOTE | 2023-10-19 13:09 | XR_ITS ---
WS: [id number] Left knee, 3 views, 10/19/2023 Clinical Data: fall/lac Comparison: AP knees, left knee, 09/19/2023 Findings: No fractures or dislocations are seen. The joint spaces are normal. The patella is intact. The soft t issues are unremarkable. There is a small calcification adjacent to the medial femoral condyle which is probably from an old i njury. There is soft tissue swelling over the anterior patella with a superficial dressing. XR/XR knee LT 3V* [id number] Impression: Negative for left knee fracture.
--- NOTE | 2023-10-19 13:22 | ED_ITS ---
HPI - Wound/Laceration General: Chief Complaint: Wound/Laceration Stated Complaint: fall, knee lac Time Seen by Provider: 10/19/23 13:05 Source: patient Mode of arrival: ambulatory Limitations: other (Hard of hearing) History of Present Illness: Patient is a 62-year-old female presenting to the emergency department due to a laceration over anterior left knee just prior to arrival. Patient was at [facility] and reportedly tripped and fell directly onto the knee, bleeding controlled on arrival however the laceration does appear very large, approximately 3 to 4 inches transverse across the left anterior knee joint. No contamination at this time. It is tender to the touch. Patient reports pain is a 9/10. No other symptoms reported, no distal neurovascular deficits, no focal sensory changes distally. Patient appears in no acute distress on examination, vitals unremarkable at this time. She reports that her tetanus is not up-to-date. She has remained ambulatory since this incident. Onset (ago): minute(s) Extremity Location: Left: knee Place: home Patient tetanus UTD: No Context: accidental Associated symptoms: Reports no associated symptoms; Denies chills, fever(s), nausea or vomiting Review of Systems General: Reports: 10 or more systems reviewed and unremarkable except in HPI and below Const: Denies: fever(s) or chills Card: Denies: chest pain Resp: Denies: dyspnea GI: Denies: abdominal pain, nausea, vomiting or diarrhea Musc: Denies: extremity pain Skin/Breast: Reports: skin tenderness and new lesions (Left knee laceration); Denies: rash or skin pain Neuro: Denies: headache(s) PFSH ED PFSH: Medical History Acute pain of left knee Psychiatric care ROBERTO (obstructive sleep apnea) DDD (degenerative disc disease), cervical Essential hypertension Asthma COPD (chronic obstructive pulmonary disease) Depression with anxiety Hyperlipidemia Chronic low back pain Macular degeneration Surgical History H/O section S/P AVR (aortic valve replacement) History of open heart surgery Family History Other Alzheimer disease Cancer Social History (Reviewed 10/19/23 @ 13:31 by NILSON Ortiz Smoking and tobacco/nicotine status: current every day tobacco/nicotine user cigarettes Packs smoked per day: 1 Years cigarettes smoked: 42 [ Other cigarette details: started at age 19] Quit status (tobacco/nicotine): not considering quitting Second hand smoke exposure: Yes Alcohol intake: never Substance/Drug Use: never Adopted: No Caregiver/support person: No Lives independently: No Household members: other Details: boarding home in [place] Housing: House Marital status: Number of children: 2 Highest education level completed: Some College, No Degree Current occupational status: disabled Pets and animals: Yes Pets & animals: cat(s) and dog(s) Leisure activites: reading Sexually active: No Do you think of yourself as: Straight/Heterosexual Current gender identity: Female Yvrose/Jewish: None Special yvrose needs: No Agree to transfusion: Yes Female Reproductive History: Spontaneous abortions: No Physical Exam Const: COMMON NORMALS: no acute distress, average body habitus, patient oriented x3, healthy appearing, alert and well nourished OTHER: Hard of hearing HENMT: COMMON NORMALS: normocephalic and atraumatic HEAD & SCALP: normocephalic and atraumatic Neck/C-Spine: COMMON NORMALS: full ROM, no lymphadenopathy, supple and no meningeal signs Resp: COMMON NORMALS: normal respiratory effort, No use of accessory muscles and clear to auscultation bilaterally AUSCULTATION: clear to auscultation bilaterally Cardio: COMMON NORMALS: regular rate and regular rhythm RATE: regular rate RHYTHM: regular rhythm Extremity: COMMON NORMALS: full ROM, capillary refill normal and no joint enlargement NARRATIVE EXTREMITY EXAM: See skin exam Neuro: COMMON NORMALS: patient oriented x3 SENSORIUM/ORIENTATION: Yes alert MENINGEAL SIGNS: Yes no meningeal signs Skin: COMMON NORMALS: turgor normal NARRATIVE SKIN EXAM: There is a linear, 3 to 4 inch laceration transversing the left anterior knee joint. There is no obvious contamination and this does appear superficial and does not involve any underlying structures. No active bleeding at this time. GENERAL SKIN EXAM: turgor normal Procedures Laceration Laceration 1: Site: lower extremity (knee) Side (If applicable): left Size (cm): 4 Description: linear and clean Depth: simple, single layer Local Anesthetic: lidocaine 2% and with epi Amount of anesthesia used (mL): 10 Pre-repair: wound explored, irrigated extensively and deep structures intact Skin layer closed with: other (Prolene) Size (cm): 3-0 Number of sutures: 14 Technique: simple, interrupted and horizontal mattress Course Vital Signs: Vital signs: Vital Signs Temperature 98.2 F 10/19/23 12:47 Pulse Rate 78 10/19/23 14:33 Respiratory Rate 16 10/19/23 14:33 Blood Pressure 143/90 10/19/23 12:47 Pulse Oximetry 97 10/19/23 14:33 Oxygen Delivery Me thod Room Air 10/19/23 12:47 MDM - Wound/Laceration Medical Decision Making Patient presented for laceration to left knee. Bleeding controlled on arrival. Vital stable. Laceration did appear very large, though superficial and did not involve any underlying structures. This was repaired, see procedure note. Patient tolerated procedure fine. Wound was irrigated extensively, cleaned with Betadine and normal saline. She will be placed in a knee immobilizer to help keep that left leg straight for adequate healing and she is informed to follow- up with primary care for suture removal in 10-14 days. Other general wound care discussed and she will be discharged home at this time. Dr. Avitia made aware of patient's case and current findings. Lab Data Radiology Impressions Knee X-Ray 10/19/23 13:09 Impression: Negative for left knee fracture. All radiology interpretation(s) finalized by discharge Discharge Plan Discharge Patient Disposition: Home Clinical Impression: Laceration of knee, left Condition: Stable Prescriptions: No Action bupropion HCl 100 mg tablet 100 mg PO .q am Qty: 4 0RF Rx Instructions: Stop 200 mg dose. For 4 days, take 1 tablet every morning, then stop. aripiprazole 2 mg tablet 2 mg PO BEDTIME Qty: 30 2RF Rx Instructions: Take one tablet daily at bedtime nystatin 100,000 unit/gram powder 1 applic topical BID Qty: 30 1RF duloxetine 60 mg capsule,delayed release(DR/EC) 120 mg PO QAM Qty: 30 5RF trazodone 100 mg tablet 300 mg PO BEDTIME PRN (Reason: sleep) Qty: 30 2RF Debrox 6.5 % drops 5 drp otic (ear) DAILY 4 Days Qty: 15 0RF atorvastatin 40 mg tablet See Rx Instructions .ROUTE .COMPLEX Qty: 30 5RF Dose Instruction: Take 1 tablet by mouth once daily Rx Instructions: Take 1 tablet by mouth once daily losartan 25 mg tablet 25 mg PO DAILY Qty: 90 1RF Symbicort 160-4.5 mcg/actuation HFA aerosol inhaler See Rx Instructions .ROUTE .COMPLEX Qty: 11 0RF Dose Instruction: Inhale 2 puffs by mouth twice daily Rx Instructions: Inhale 2 puffs by mouth twice daily ibuprofen 800 mg tablet 800 mg PO TID PRN (Reason: pain) 10 Days Qty: 30 0RF omeprazole 40 mg capsule,delayed release(DR/EC) 40 mg PO DAILY Qty: 90 0RF ibuprofen 800 mg tablet 800 mg PO TID PRN (Reason: pain) aspirin 81 mg tablet,delayed release (DR/EC) 81 mg PO DAILY albuterol sulfate 90 mcg/actuation HFA aerosol inhaler 2 puff inhalation Q6H PRN (Reason: Shortness Of Breath Or Wheezing) cyclobenzaprine 5 mg tablet 5 mg PO TID PRN (Reason: Muscle Spasm) naproxen 500 mg tablet 500 mg PO BID PRN (Reason: pain) Qty: 20 0RF hydrocodone-acetaminophen 5-325 mg tablet 1 tab PO Q8H PRN (Reason: pain) Qty: 14 0RF Discharge Orders: Discharge ED (Routine); Ordered 10/19/23 Ordered By: Teodoro Pabon Referrals: Hilario Marroquin DO [Primary Care Provider] - Discharge Diet: Usual diet Discharge Activity: Limit activity as instructed Patient Instructions: Laceration (ED) Activity Restrictions/Additional Instructions: Keep knee immobilized as discussed to avoid any issues with sutures breaking open. Keep wound dry for the first 48 hours, afterwards you may clean/dab with soap and water, and dab dry afterwards. Tylenol and ibuprofen for any pain. Use crutches as provided. Please follow-up with your primary care provider for suture removal in 10-14 days. If you develop any concerning signs of infection, such as increasing redness, drainage of pus, or other concerning signs, please return immediately to the emergency department. Coding Level of Care Code ED Personal Security Specialist for Ysabel Beverly
[2023-10-19] MEDS: lidocaine-epi 2% 20 mL INJ INJECTION (13:37)
[2023-10-19 13:38] VITALS: RESP 16; O2SAT 99
[2023-10-19] MEDS: morphine 4 mg/mL SDV 1 mL IM (13:38)
[2023-10-19] MEDS: tetanus-dipt-pertussis 0.5 mL SDV IM (13:38)
[2023-10-19 14:33] VITALS: PULSE 78; RESP 16; O2SAT 97
[2023-10-19 15:24] VITALS: BP 143/90; PULSE 65; RESP 16; O2SAT 97
== END 2023-10-19 15:26 | disposition home or self-care (01) ==
PROVIDERS: Emergency Provider Physician Assistant; PCP Family Medicine
DX: S81.012A Laceration without foreign body, left knee, initial encounter (principal); W01.0XXA Fall on same level from slipping, tripping and stumbling without subsequent striking against object, initial encounter
CPT/HCPCS: 12002; 29530; 73562; 90471; 90715; 96372; 99283; J2270

== ENCOUNTER → 2023-10-30 13:54 | Outpatient (BNVA) | payer MEDICAID, SELFPAY ==
[2023-09-12 13:47] VITALS: BP 101/46; BMI 26.2
== END ==
PROVIDERS: PCP Family Medicine; Visit Provider Nurse Practitioner
DX: L08.9 Local infection of the skin and subcutaneous tissue, unspecified (principal); S81.012A Laceration without foreign body, left knee, initial encounter; X58.XXXA Exposure to other specified factors, initial encounter
CPT/HCPCS: 99214

== ENCOUNTER → 2023-11-06 14:28 | Outpatient (BNVA) | payer MEDICAID, SELFPAY ==
[2023-09-12 13:47] VITALS: BP 101/46; BMI 26.2
== END ==
PROVIDERS: PCP Family Medicine; Visit Provider Nurse Practitioner
DX: T14.8XXA Other injury of unspecified body region, initial encounter (principal); L08.9 Local infection of the skin and subcutaneous tissue, unspecified; S81.012A Laceration without foreign body, left knee, initial encounter; X58.XXXA Exposure to other specified factors, initial encounter
CPT/HCPCS: 99213

== ENCOUNTER 2023-11-13 08:01 | Outpatient (CLI) | payer MEDICAID, SELFPAY ==
[2023-09-12 13:47] VITALS: BP 101/46; BMI 26.2
--- NOTE | 2023-11-13 08:45 | MR_ITS ---
WS: [id number] MRI LEFT KNEE HISTORY: M71.169 - Other infective bursitis, unspecified knee, injury after fall. COMPARISON: Radiograph 10/19/2023 Anterior cruciate ligament: Intact. Posterior cruciate ligament: Intact. Medial collateral ligament: MCL is poorly visualized as there is significant motion artifact on the c oronal image. On the radiographs there was calcification at the medial femoral condyle which is typic ally seen with prior MCL injury. Posterior lateral corner structures: Intact. Medial menisci: Intact. Normal signal, size and shape. Lateral meniscus: Intact. Normal signal, size and shape. Extensor mechanism: Distal quadriceps tendon and patellar tendons are intact. Fluid and soft tissue: Small joint effusion with a small amount of edema surrounding the knee. Soft t issue edema is more significant along the anterior knee. No focal fluid collection. No Shrestha's cyst. Osseous and articular structures: Patellofemoral compartment: Normal. Medial compartment: Mild narrowing. No marrow edema. Lateral compartment: Mild narrowing with no marrow edema. MR/MR knee LT wo con* [id number] IMPRESSION: 1. Significant motion artifact on this examination despite repeated attempts a t obtaining motion free sequences. 2. There is soft tissue edema around the knee but greatest anteriorly. No foca l fluid collection. 3. No significant joint effusion. 4. No fractures or marrow edema. Subtle areas of marrow edema would be obscure d with this amount of motion. No meniscal tear.
== END 2023-11-13 08:02 | disposition home or self-care (01) ==
LOC: RAD 08:01
PROVIDERS: Visit Provider Nurse Practitioner
DX: M61.452 Other calcification of muscle, left thigh (principal); M25.462 Effusion, left knee; M71.169 Other infective bursitis, unspecified knee
CPT/HCPCS: 73721

== ENCOUNTER → 2023-11-27 09:43 | Outpatient (BNVA) | payer MEDICAID, SELFPAY ==
[2023-09-12 13:47] VITALS: BP 101/46; BMI 26.2
== END ==
PROVIDERS: Visit Provider Nurse Practitioner
DX: S81.012D Laceration without foreign body, left knee, subsequent encounter (principal); X58.XXXD Exposure to other specified factors, subsequent encounter
CPT/HCPCS: 99213

== ENCOUNTER 2023-12-17 20:27 | Emergency (ER) | payer MEDICAID, SELFPAY ==
[2023-09-12 13:47] VITALS: BP 101/46; BMI 26.2
[2023-12-17 20:31] VITALS: BP 116/77; PULSE 103; RESP 18; TEMP 37.3; O2SAT 98; BMI 24.2
[2023-12-17 20:46] VITALS: BP 106/75
--- NOTE | 2023-12-17 20:59 | ECG_ITS ---
[facility] Test Date: 2023-12-17 Pat Name: Estephanie Mao Department: Room: Gender: Female Anesthesia Attending: : 1960 Requested By: Fortunato Gracia Order Number: [id number] Christiana MD: Alex Evans M.D. Measurements Intervals [place] Rate: 96 P: 81 UT: 130 QRS: 48 QRSD: 85 T: 80 QT: 337 QTc: 427 Interpretive Statements SINUS RHYTHM NONSPECIFIC T-WAVE ABNORMALITY No previous ECG available for comparison Electronically Signed On 12-18-2023 18:44:54 CDT by Alex Evans M.D. [id number]
[2023-12-17 21:16] VITALS: BP 102/78; PULSE 93; O2SAT 92
[2023-12-17 21:30] VITALS: BP 105/27; PULSE 93; O2SAT 92
[2023-12-17 21:31] LABS: Basophils # 0.1 10^3/uL (0.0-0.1); Basophils % 0.6 %; Eosinophils # 0.1 10^3/uL (0.0-0.8); Eosinophils % 0.8 %; Hematocrit 39.6 % (36-47); Lymphocytes % 11.1 %; Mean Corpuscular HGB Conc 32.3 g/dL (30-55); Mean Corpuscular Hemoglobin 30.5 pg (27-33); Mean Corpuscular Volume 94.3 fl (85-98); Mean Platelet Volume 11.9 fL (7.4-10.4); Monocytes # 0.9 10^3/uL (0.2-0.9); Monocytes % 10.3 %; Neutrophils # 6.87 10^3/uL (1.8-7.7); Neutrophils % 76.9 %; Nucleated Red Blood Cells % 0 %; Platelet Count 133 10^3/cmm (157-399); Red Cell Distribution Width 13.8 % (12.1-15.1); White Blood Count 8.93 10^3/uL (3.29-11.43)
[2023-12-17 21:44] LABS: Amphetamines Screen Urine Negative (Negative); Barbiturates Screen Urine Negative (Negative); Benzodiazepines Screen Urine Negative (Negative); Bilirubin Urine Negative (Negative); Blood Urine 2+ (Negative); Cocaine Screen Urine Negative (Negative); Glucose Urine UA Negative (Normal); Ketones Urine Negative (Negative); Leukocyte Esterase Urine Negative (Negative); Nitrate Urine Negative (Negative); Opiate Screen Urine Negative (Negative); PCP Screen Urine Negative (Negative); Protein Urine Negative (Negative); Specific Gravity, Urine 1.008 (1.005-1.030); THC Screen Urine Negative (Negative); Urine Appearance Clear (CLEAR); Urine Color Yellow (Yellow); pH Urine 6.5 (5-7)
[2023-12-17 21:47] LABS: Add Urine Microscopic? YES; Bacteria Urine None Seen /hpf; Squamous Epithelial Cell Urine 0-5 /hpf (0-5); WBC Urine 0-5 /hpf (0-5)
[2023-12-17 21:57] LABS: Alanine Aminotransferase 10 U/L (0-33); Albumin Level 3.4 g/dL (3.5-5.2); Alkaline Phosphatase 95 U/L (35-105); Anion Gap 12.7 (5-19); Aspartate Amino Transferase 13 U/L (0-32); Blood Urea Nitrogen 9 mg/dL (8-23); Carbon Dioxide 24 mmol/L (22-29); Chloride 100 mmol/L (98-107); Creatinine Clr Calc Pharmacy 55.1402; Globulin 2.9 g/dL (1.3-4.6); Glucose 113 mg/dL (65-115); Lipase 32 U/L (13-60); Osmolality Calculated 275 mOsm/kg (285-295); Potassium 3.7 mmol/L (3.5-5.1); Sodium 133 mmol/L (136-145); Thyroid Stimulating Hormone 1.42 uIU/mL (0.27-4.20); Total Bilirubin 0.4 mg/dL (0.15-1.2); Total Protein 6.3 g/dL (6.6-8.7)
[2023-12-17 21:58] LABS: Acetaminophen < 5.0 ug/mL (10-30); Alcohol Level < 10 mg/dL (0-10); Salicylate < 0.3 mg/dL (3-10)
[2023-12-17 22:00] VITALS: BP 116/69; PULSE 93; O2SAT 98
--- NOTE | 2023-12-17 22:08 | W.ED.ABDPA2 ---
HPI - Abdominal Pain General: Chief Complaint: Abdominal Pain Stated Complaint: having trouble eating Time Seen by Provider: 12/17/23 20:55 History of Present Illness: 63-year-old female complaining of generalized abdominal cramping over the last 2 weeks. She says that she is having trouble eating. She vomited a couple times last week. She [facility] The caregiver has multiple notes written by other residents with her. The use notes are attestations of essentially delirium the patient has had. They include statements that the patient had said that Pino Galeano was her , and other nonsensical things. She appeared to residents at times to be acting on internal stimuli. She has seemed confused at times. She has not had any instances of self-harm, and is not suicidal here. Related Data Home Medications Medication Instructions Recorded Confirmed albuterol sulfate 90 mcg/actuation 2 puff inhalation Q6H PRN 07/29/23 11/27/23 aerosol inhaler Shortness Of Breath Or Wheezing aspirin 81 mg tablet,delayed 81 mg PO DAILY 07/29/23 11/27/23 release cyclobenzaprine 5 mg tablet 5 mg PO TID PRN Muscle Spasm 07/29/23 11/27/23 Previous Rx's Medication Instructions Recorded Symbicort 160 mcg-4.5 See Rx Instructions .Route 09/11/23 mcg/actuation HFA aerosol inhaler .COMPLEX #11 grams (budesonide-formoterol) atorvastatin 40 mg tablet See Rx Instructions .Route 09/13/23 .COMPLEX #30 tabs carbamide peroxide 6.5 % ear drops 5 drp otic (ear) DAILY 4 days #15 09/13/23 (Debrox) mL losartan 25 mg tablet 25 mg PO DAILY #90 tabs 09/13/23 aripiprazole 2 mg tablet 2 mg PO BEDTIME #30 tabs 10/03/23 bupropion HCl 100 mg tablet 100 mg PO .q am #4 tabs 10/03/23 duloxetine 60 mg capsule,delayed 120 mg (2 x 60 mg) PO QAM #30 caps 10/03/23 release nystatin 100,000 unit/gram topical 1 applic topical BID #30 grams 10/03/23 powder omeprazole 40 mg capsule,delayed 40 mg PO DAILY #90 caps 10/18/23 release cephalexin 500 mg capsule 500 mg PO TID 7 days #21 caps 10/30/23 mupirocin 2 % topical ointment 1 applic topical BID #22 grams 10/30/23 ibuprofen 800 mg tablet 800 mg PO TID PRN pain 10 days #30 12/13/23 tabs trazodone 100 mg tablet See Rx Instructions .Route 12/13/23 .COMPLEX #90 tabs Allergies Allergy/AdvReac Type Severity Reaction Status Date / Time No Known Allergies Allergy Verified 11/27/23 09:51 PFSH ED PFSH: Medical History Infected laceration of skin Acute pain of left knee Psychiatric care ROBERTO (obstructive sleep apnea) DDD (degenerative disc disease), cervical Essential hypertension Asthma COPD (chronic obstructive pulmonary disease) Depression with anxiety Hyperlipidemia Chronic low back pain Macular degeneration Surgical History H/O section S/P AVR (aortic valve replacement) History of open heart surgery Family History Other Alzheimer disease Cancer Social History Smoking and tobacco/nicotine status: current every day tobacco/nicotine user Female Reproductive History: Spontaneous abortions: No Physical Exam Const: COMMON NORMALS: no acute distress GENERAL APPEARANCE: cooperative; not ill appearing and not frail appearing HENMT: COMMON NORMALS: normocephalic, atraumatic and Normal external nose present HEAD & SCALP: normocephalic and atraumatic FACE & SINUS: normal facial exam and face symmetric NOSE: Normal external nose present Eye: COMMON NORMALS: Equal, round and reactive pupils present and EOMs intact bilaterally PUPIL: Yes Equal, round and reactive pupils present Neck/C-Spine: GENERAL: Yes trachea midline Chest: CHEST: Yes Symmetrical chest wall rise Resp: COMMON NORMALS: normal respiratory effort, No retractions, No use of accessory muscles and clear to auscultation bilaterally AUSCULTATION: clear to auscultation bilaterally Cardio: COMMON NORMALS: regular rate and regular rhythm RATE: regular rate RHYTHM: regular rhythm GI: COMMON NORMALS: Normal to inspection, nondistended, normoactive bowel sounds present Extremity: COMMON NORMALS: no pedal edema Neuro: COLLETTE COMA SCALE: document GCS findings [place] coma scale eye opening: Spontaneous [place] coma scale verbal response: Orientated [place] coma scale motor response: Obey commands [place] coma scale total score: 15 SENSORY EXAM: Yes extremities (intact) Psych: COMMON NORMALS: speech normal SPEECH: Yes normal speech Skin: COMMON NORMALS: no rashes or lesions noted GENERAL SKIN EXAM: no rashes or lesions noted Course Vital Signs: Vital signs: Vital Signs Temperature 99.2 F 12/17/23 20:31 Pulse Rate 89 12/17/23 23:27 Respiratory Rate 16 12/17/23 23:27 Blood Pressure 132/56 12/17/23 23:27 Pulse Oximetry 95 12/17/23 23:27 Oxygen Delivery Me thod Room Air 12/17/23 22:00 MDM - Abdominal Pain Medical Decision Making This patient is conversationally appropriate. She answers most questions appropriately. She is not suicidal. Vitals are stable. Her laboratory is largely unremarkable. She is not intoxicated. Her belly is nontender. No evidence of urinary tract infection. Nonfocal neurological exam. She may be having periods of delirium, and this is quite feasible. However, the patient is awake, alert, and conversant. She does not wish to be admitted to the hospital, or referred for psychiatric care. She also does not wish to be placed in a snf. She has no legal guardian to make medical decisions for her. She does not meet criteria to place her under psychiatric hold at this time. She will be discharged for outpatient follow-up. Lab Data 12/17/23 21:12/17/23 21: Labs/Radiology: Laboratory Results WBC 8.93 10^3/uL (3.29-11.43) 12/17/23 21: RBC 4.20 10^6/uL (3.85-5.65) 12/17/23 21: Hgb 12.80 g/dL (11.27-16.99) 12/17/23 21: Hct 39.6 % (36-47) 12/17/23 21:24 MCV 94.3 fl (85-98) 12/17/23 21: MCH 30.5 pg (27-33) 12/17/23: MCHC 32.3 g/dL (30-55) 12/17/23 21:24 RDW 13.8 % (12.1-15.1) 12/17/23 21:24 Plt Count 133 10^3/cmm (157-399) L 12/17/23 21:24 MPV 11.9 fL (7.4-10.4) H 12/17/23 21:24 Neut % (Auto) 76.9 % 12/17/23 21: Lymph % (Auto) 11.1 % 12/17/23 21:24 Hughes % (Auto) 10.3 % 12/17/23 21:24 Eos % (Auto) 0.8 % 12/17/23 21:24 Baso % (Auto) 0.6 % 12/17/23 21: Neut # (Auto) 6.87 10^3/uL (1.8-7.7) 12/17/23 21: Lymph # (Auto) 1.0 10^3/uL (0.8-4.8) 12/17/23 21: Hughes # (Auto) 0.9 10^3/uL (0.2-0.9) 12/17/23 21:24 Eos # (Auto) 0.1 10^3/uL (0.0-0.8) 12/17/23 21: Baso # (Auto) 0.1 10^3/uL (0.0-0.1) 12/17/23 21:24 Nucleated RBC % (auto) 0 % 12/17/23 21: Nucleated RBCs # 0.0 /100WBC 12/17/23 21:24 Sodium 133 mmol/L (136-145) L 12/17/23 21:24 Potassium 3.7 mmol/L (3.5-5.1) 12/17/23 21:24 Chloride 100 mmol/L (98-107) 12/17/23 21:24 Carbon Dioxide 24 mmol/L (22-29) 12/17/23 21:24 Anion Gap 12.7 (5-19) 12/17/23 21:24 BUN 9 mg/dL (8-23) 12/17/23 21:24 Creatinine 0.8 mg/dL (0.5-0.9) 12/17/23 21:24 GFR Calculation 72.0 mL/min (90-130) L 12/17/23 21:24 Glucose 113 mg/dL (65-115) 12/17/23 21:24 Calculated Osmolality 275 mOsm/kg (285-295) L 12/17/23 21:24 Calcium 9.0 mg/dL (8.5-10.5) 12/17/23 21:24 Total Bilirubin 0.4 mg/dL (0.15-1.2) 12/17/23 21:24 AST 13 U/L (0-32) 12/17/23 21: ALT 10 U/L (0-33) 12/17/23 21: Alkaline Phosphatase 95 U/L (35-105) 12/17/23 21: Total Protein 6.3 g/dL (6.6-8.7) L 12/17/23: Albumin 3.4 g/dL (3.5-5.2) L 12/17/23: Globulin 2.9 g/dL (1.3-4.6) 12/17/23: Lipase 32 U/L (13-60) 12/17/23 21: TSH 1.42 uIU/mL (0.27-4.20) 12/17/23 21:24 Urine Color Yellow (Yellow) 12/17/23 21:00 Urine Appearance Clear (CLEAR) 12/17/23 21:00 Urine pH 6.5 (5-7) 12/17/23 21:00 Ur Specific [place] 1.008 (1.005-1.030) 12/17/23 21:00 Urine Protein Negative (Negative) 12/17/23 21:00 Urine Glucose (UA) Negative (Normal) 12/17/23 21:00 Urine Ketones Negative (Negative) 12/17/23 21:00 Urine Blood 2+ (Negative) A 12/17/23 21:00 Urine Nitrate Negative (Negative) 12/17/23 21:00 Urine Bilirubin Negative (Negative) 12/17/23 21:00 Urine Urobilinogen 1.0 mg/dL (Negative) 12/17/23 21:00 Ur Leukocyte Esterase Negative (Negative) 12/17/23 21:00 Urine RBC 11-20 /hpf (0-2) H 12/17/23 21:00 Urine WBC 0-5 /hpf (0-5) 12/17/23 21:00 Ur Squamous Epith Cells 0-5 /hpf (0-5) 12/17/23 21:00 Amorphous Sediment Not Reportable 12/17/23 21:00 Urine Bacteria None seen /hpf (NONE) 12/17/23 21:00 Hyaline Casts 0.40 /lpf 12/17/23 21:00 Salicylates < 0.3 mg/dL (3-10) L 12/17/23 21:24 Urine Opiates Screen Negative ng/mL (Negative) 12/17/23 21:00 Acetaminophen < 5.0 ug/mL (10-30) L 12/17/23 21:24 Ur Barbiturates Screen Negative ng/mL (Negative) 12/17/23 21:00 Ur Phencyclidine Scrn Negative ng/mL (Negative) 12/17/23 21:00 Ur Amphetamines Screen Negative ng/mL (Negative) 12/17/23 21:00 U Benzodiazepines Scrn Negative ng/mL (Negative) 12/17/23 21:00 Urine Cocaine Screen Negative ng/mL (Negative) 12/17/23 21:00 U Marijuana (THC) Screen Negative ng/mL (Negative) 12/17/23 21:00 Ethyl Alcohol < 10 mg/dL (0-10) 12/17/23 21:24 Coronavirus (PCR) Negative (Negative) 12/17/23 21:24 Influenza A (PCR) Negative (Negative) 12/17/23 21:24 Influenza Type B (PCR) Negative (Negative) 12/17/23 21:24 RSV (PCR) Negative (Negative) 12/17/23 21:24 All radiology interpretation(s) finalized by discharge Discharge Plan Discharge Patient Disposition: Home Clinical Impression: Abdominal pain, Major depressive disorder, recurrent, moderate Condition: Stable Prescriptions: No Action bupropion HCl 100 mg tablet 100 mg PO .q am Qty: 4 0RF Rx Instructions: Stop 200 mg dose. For 4 days, take 1 tablet every morning, then stop. aripiprazole 2 mg tablet 2 mg PO BEDTIME Qty: 30 2RF Rx Instructions: Take one tablet daily at bedtime nystatin 100,000 unit/gram powder 1 applic topical BID Qty: 30 1RF duloxetine 60 mg capsule,delayed release(DR/EC) 120 mg PO QAM Qty: 30 5RF Debrox 6.5 % drops 5 drp otic (ear) DAILY 4 Days Qty: 15 0RF atorvastatin 40 mg tablet See Rx Instructions .ROUTE .COMPLEX Qty: 30 5RF Dose Instruction: Take 1 tablet by mouth once daily Rx Instructions: Take 1 tablet by mouth once daily losartan 25 mg tablet 25 mg PO DAILY Qty: 90 1RF cephalexin 500 mg capsule 500 mg PO TID 7 Days Qty: 21 0RF mupirocin 2 % ointment 1 applic topical BID Qty: 22 0RF Symbicort 160-4.5 mcg/actuation HFA aerosol inhaler See Rx Instructions .ROUTE .COMPLEX Qty: 11 0RF Dose Instruction: Inhale 2 puffs by mouth twice daily Rx Instructions: Inhale 2 puffs by mouth twice daily omeprazole 40 mg capsule,delayed release(DR/EC) 40 mg PO DAILY Qty: 90 0RF ibuprofen 800 mg tablet 800 mg PO TID PRN (Reason: pain) 10 Days Qty: 30 0RF trazodone 100 mg tablet See Rx Instructions .ROUTE .COMPLEX Qty: 90 0RF Dose Instruction: TAKE 3 TABLETS BY MOUTH AT BEDTIME NEEDED FOR SLEEP Rx Instructions: TAKE 3 TABLETS BY MOUTH AT BEDTIME NEEDED FOR SLEEP aspirin 81 mg tablet,delayed release (DR/EC) 81 mg PO DAILY albuterol sulfate 90 mcg/actuation HFA aerosol inhaler 2 puff inhalation Q6H PRN (Reason: Shortness Of Breath Or Wheezing) cyclobenzaprine 5 mg tablet 5 mg PO TID PRN (Reason: Muscle Spasm) Discharge Orders: Discharge ED (Routine); Ordered 12/17/23 Ordered By: Fortunato Ward Referrals: Gabino Henderson MD [Primary Care Provider] - 1-3 days Patient Instructions: Abdominal Pain (ED), Opioid Safety, Pain Management Activity Restrictions/Additional Instructions: See your doctor this coming week. Coding Level of Care Code ED Hat Trimmer for Ysabel Beverly
[2023-12-17 22:09] LABS: Covid PCR NEGATIVE (Negative); Influenza A NEGATIVE (Negative); Influenza B NEGATIVE (Negative); Respiratory Syncytial Virus Ce NEGATIVE (Negative)
[2023-12-17 23:27] VITALS: BP 132/56; PULSE 89; RESP 16; O2SAT 95
== END 2023-12-17 23:28 | disposition home or self-care (01) ==
PROVIDERS: Emergency Provider Emergency Medicine; PCP Family Medicine
DX: F33.1 Major depressive disorder, recurrent, moderate (principal); R10.84 Generalized abdominal pain
CPT/HCPCS: 0241U; 36415; 80053; 80306; 80307; 81001; 83690; 84443; 85025; 93005; 99284

== ENCOUNTER 2023-12-21 09:35 | Inpatient (IN) | payer MEDICAID, SELFPAY ==
[2023-09-12 13:47] VITALS: BP 101/46; BMI 26.2
[2023-12-21] VITALS (71 sets, daily range): BP systolic 75–118; BP diastolic 29–72; PULSE 74–97; RESP 16–34; TEMP 36.7–37.2; O2SAT 89–98; BMI 24.2
[2023-12-21 10:07] LABS: Basophils % 0.4 %; Eosinophils % 0.2 %; Hematocrit 37.5 % (36-47); Lymphocytes # 0.2 10^3/uL (0.8-4.8); Mean Corpuscular HGB Conc 32.5 g/dL (30-55); Mean Corpuscular Hemoglobin 30.5 pg (27-33); Mean Corpuscular Volume 93.8 fl (85-98); Monocytes # 0.2 10^3/uL (0.2-0.9); Monocytes % 2.3 %; Neutrophils # 7.84 10^3/uL (1.8-7.7); Neutrophils % 94.5 %; Nucleated Red Blood Cells % 0 %; Platelet Count 137 10^3/cmm (157-399); Red Cell Distribution Width 13.3 % (12.1-15.1)
--- NOTE | 2023-12-21 10:14 | CT_ITS ---
WS: [id number] CT ABDOMEN AND PELVIS NONCONTRAST HISTORY: Abdominal pain TECHNIQUE: Imaging performed through the abdomen and pelvis. Coronal and sagittal reformats are submi tted. All CT scans at [facility] use at least one of these dose optimization techniques: auto mated exposure control; mA and/or kV adjustment per patient size (includes targeted exams where dose is matched to clinical indication); or iterative reconstruction. DLP: 363.83 mGy.cm COMPARISON: 07/29/2023 Lower thorax: Lung bases are clear. Visualized heart is normal. No hiatal hernia. Liver: Hepatic steatosis. Numerous low-attenuation masses of varying sizes in the liver. The largest measures 3.0 x 2.1 cm. Cysts were described on the prior CT of 07/29/2023. No intrahepatic dilatation. Gallbladder: Normal gallbladder. No pericholecystic fluid or cholelithiasis. No gallbladder wall thic kening. Pancreas: Normal size and attenuation. Normal pancreatic duct. No pancreatitis or mass. Spleen: Normal. Adrenal glands: Normal. No mass. Right kidney: Anteriorly rotated renal pelvis. No obstruction. Left kidney: Normal size kidney with no mass or hydronephrosis. Aorta: Mild atherosclerosis abdominal aorta with no aneurysm. No free fluid, intraperitoneal air or significant lymphadenopathy. GI tract: Stomach is distended with fluid. No small bowel obstruction or wall thickening. Long segmen t of significant inflammation and luminal narrowing involving the sigmoid. Abnormality extends over a length of 5.9 cm. There is wall thickening with narrowing of the lumen. Numerous diverticula are pre sent. No abscess identified and no free air. There could potentially be a tiny microperforation which is contained in the adjacent sigmoid fat. There is a small amount of free fluid noted at the site of the probable microperforation. Additional submucosal fatty deposition throughout a large portion of the RIGHT and transverse colon. Normal appendix. Abdominal wall: Ventral abdominal wall hernia contains fat. Pelvis: Minimally urinary bladder. Osseous structures: Unremarkable. CT/CT abdomen pelvis wo con [id number] IMPRESSION: 1. Advanced acute sigmoid diverticulitis. Narrowing of the lumen with wall enh ancement. There are numerous tiny diverticula which are inflamed. Tiny microper foration is likely. There is no abscess identified. Small amount of free fluid in the LEFT pelvis adjacent to what is probably a small contained perforation i n the sigmoid colon. 2. Fatty deposition throughout the submucosa involving a portion of the colon. Most likely etiologies obesity. Can also be seen with chronic ulcerative colit is or chemotherapy. 3. Hepatic cysts.
[2023-12-21 10:25] LABS: Alanine Aminotransferase 15 U/L (0-33); Albumin Level 3.3 g/dL (3.5-5.2); Alkaline Phosphatase 104 U/L (35-105); Aspartate Amino Transferase 19 U/L (0-32); Blood Urea Nitrogen 8 mg/dL (8-23); Calcium 8.5 mg/dL (8.5-10.5); Carbon Dioxide 20 mmol/L (22-29); Chloride 101 mmol/L (98-107); Globulin 3.1 g/dL (1.3-4.6); Glomerular Filtration Rate 55.6 mL/min (90-130); Glucose 101 mg/dL (65-115); Lipase 15 U/L (13-60); Osmolality Calculated 284 mOsm/kg (285-295); Sodium 138 mmol/L (136-145); Total Bilirubin 0.5 mg/dL (0.15-1.2); Total Protein 6.4 g/dL (6.6-8.7)
[2023-12-21 10:28] LABS: Anion Gap 20.1 (5-19); Potassium 3.1 mmol/L (3.5-5.1)
[2023-12-21 10:51] LABS: Bilirubin Urine 1+ (Negative); Blood Urine Negative (Negative); Glucose Urine UA Negative (Normal); Ketones Urine 1+ (Negative); Leukocyte Esterase Urine Trace (Negative); Nitrate Urine Negative (Negative); Protein Urine 2+ (Negative); Specific Gravity, Urine 1.025 (1.005-1.030); Urine Appearance Cloudy (CLEAR); Urine Color Dark Yellow (Yellow); pH Urine 5.5 (5-7)
[2023-12-21] MEDS: SODIUM CHLORIDE 0.9% 1687.35 ML IV (10:52)
[2023-12-21 11:05] LABS: UA Manual Slide Review YES; UA Slide Review UA Slide Review Perf
[2023-12-21 11:08] LABS: Add Urine Culture? No; Add Urine Microscopic? YES; Bacteria Urine 1+ /hpf; Hyaline Casts Urine 15-25 /lpf; Mucus Urine 2+ /hpf; Oval Fat Bodies Urine RARE /hpf; RBC Urine 0-4 /hpf (0-2)
[2023-12-21 11:09] LABS: Lactic Sepsis W/Reflex 2.7 mmol/L (0.5-2.2)
--- NOTE | 2023-12-21 11:11 | W.ED.ABDPA2 ---
HPI - Abdominal Pain General: Chief Complaint: Abdominal Pain Stated Complaint: abd pain Time Seen by Provider: 12/21/23 09:37 History of Present Illness: 63-year-old female who presents emergency room with complaint of abdominal pain that began this morning at around 3 AM she no fever sweats chills she has had a little bit of dysuria reports a lot of her discomfort is suprapubic she has been constipated as well denies any hematuria. No fever no specific flank pain complains of generalized back and neck pain which is chronic particularly across the left trapezius muscle worse with movement of the arm palpation to the trapezius muscle. Associated Symptoms: Reports fever(s), nausea and vomiting; Denies chills and dysuria Related Data Home Medications Medication Instructions Recorded Confirmed albuterol sulfate 90 mcg/actuation 2 puff inhalation Q6H PRN 07/29/23 12/21/23 aerosol inhaler Shortness Of Breath Or Wheezing aspirin 81 mg tablet,delayed 81 mg PO DAILY 07/29/23 12/21/23 release cyclobenzaprine 5 mg tablet 5 mg PO TID PRN Muscle Spasm 07/29/23 12/21/23 Previous Rx's Medication Instructions Recorded Symbicort 160 mcg-4.5 See Rx Instructions .Route 09/11/23 mcg/actuation HFA aerosol inhaler .COMPLEX #11 grams (budesonide-formoterol) atorvastatin 40 mg tablet See Rx Instructions .Route 09/13/23 .COMPLEX #30 tabs losartan 25 mg tablet 25 mg PO DAILY #90 tabs 09/13/23 aripiprazole 2 mg tablet 2 mg PO BEDTIME #30 tabs 10/03/23 duloxetine 60 mg capsule,delayed 120 mg (2 x 60 mg) PO QAM #30 caps 10/03/23 release omeprazole 40 mg capsule,delayed 40 mg PO DAILY #90 caps 10/18/23 release ibuprofen 800 mg tablet 800 mg PO TID PRN pain 10 days #30 12/13/23 tabs trazodone 100 mg tablet See Rx Instructions .Route 12/13/23 .COMPLEX #90 tabs Allergies Allergy/AdvReac Type Severity Reaction Status Date / Time No Known Allergies Allergy Verified 11/27/23 09:51 Review of Systems Const: Reports: fever(s), fatigue and malaise; Denies: chills Card: Denies: chest pain Resp: Denies: dyspnea GI: Reports: abdominal pain, nausea and vomiting : Denies: dysuria, urinary frequency or urinary urgency Musc: Denies: neck pain or back pain Skin/Breast: Denies: rash PFSH ED PFSH: Medical History Infected laceration of skin Acute pain of left knee Psychiatric care ROBERTO (obstructive sleep apnea) DDD (degenerative disc disease), cervical Essential hypertension Asthma COPD (chronic obstructive pulmonary disease) Depression with anxiety Hyperlipidemia Chronic low back pain Macular degeneration Surgical History H/O section S/P AVR (aortic valve replacement) History of open heart surgery Family History Other Alzheimer disease Cancer Social History Smoking and tobacco/nicotine status: current every day tobacco/nicotine user Female Reproductive History: Spontaneous abortions: No Physical Exam Const: GENERAL APPEARANCE: cooperative ORIENTATION/CONSCIOUSNESS: Yes awake, Yes oriented to person, Yes oriented to place and Yes oriented to time HENMT: COMMON NORMALS: normocephalic, atraumatic and hearing grossly normal bilaterally HEAD & SCALP: normocephalic and atraumatic Resp: COMMON NORMALS: normal respiratory effort, No retractions, No use of accessory muscles and clear to auscultation bilaterally AUSCULTATION: clear to auscultation bilaterally Cardio: COMMON NORMALS: regular rate, regular rhythm and No murmurs present (Cardio) RATE: regular rate RHYTHM: regular rhythm GI: COMMON NORMALS: Soft to palpation and No hepatosplenomegaly present AUSCULTATION: Yes normoactive bowel sounds PALPATION: Yes Soft to palpation, No Tenderness to palpation present (GI), No Guarding due to palpation present (GI) and Yes No hepatosplenomegaly present Extremity: COMMON NORMALS: normal to inspection, capillary refill normal, no clubbing, cyanosis or edema, no calf tenderness and no pedal edema Neuro: SENSORIUM/ORIENTATION: Yes oriented to person, Yes oriented to place and Yes oriented to time Skin: COMMON NORMALS: no rashes or lesions noted GENERAL SKIN EXAM: no rashes or lesions noted Procedures Central Line Placement Right IJ: Patient Placed on Monitor/Pulse Ox: Yes MD Prep: mask, gown and gloves Central Line Prep: Chlorhexidine scrub Local Anesthetic: lidocaine 1% Amount of anesthesia used (mL): 3 Ultrasound Used for Placement: Yes Central Line Lumen Inserted: triple Post Procedure: sutured in place, good blood return, all ports aspirated, flushed, capped and sterile dressing applied Post Procedure X-Ray: tip of catheter in good position Patient Tolerated Procedure: well Complications: none Course Vital Signs: Vital signs: Vital Signs Temperature 98.9 F 12/21/23 15:10 Pulse Rate 75 12/21/23 16:32 Respiratory Rate 17 12/21/23 16:32 Blood Pressure 110/48 12/21/23 15:59 Pulse Oximetry 95 12/21/23 16:32 Oxygen Delivery Me thod Room Air 12/21/23 16:32 MDM - Abdominal Pain Medical Decision Making Patient developed hypotension CT shows diverticulitis with what appears to be microperforations patient also has leukocytosis. Difficult time maintaining IV access. Sent central line placed in the right IJ patient tolerated well. Will admit to the ICU discussed with hospitalist orders written Medical Records I reviewed the patient's medical records. Lab Data I reviewed the patient's lab results. 12/21/23 09:55 12/21/23 09:55 Labs/Radiology: Radiology Impressions Abdomen/Pelvis CT 12/21/23 10:14 IMPRESSION: 1. Advanced acute sigmoid diverticulitis. Narrowing of the lumen with wall enhancement. There are numerous tiny diverticula which are inflamed. Tiny microperforation is likely. There is no abscess identified. Small amount of free fluid in the LEFT pelvis adjacent to what is probably a small contained perforation in the sigmoid colon. 2. Fatty deposition throughout the submucosa involving a portion of the colon. Most likely etiologies obesity. Can also be seen with chronic ulcerative colitis or chemotherapy. 3. Hepatic cysts. Chest X-Ray 12/21/23 13:28 IMPRESSION: 1. Right-sided IJ catheter probably ending near the cavoatrial junction in satisfactory location. The chest is otherwise unremarkable. Laboratory Results WBC 8.30 10^3/uL (3.29-11.43) 12/21/23 09:55 RBC 4.00 10^6/uL (3.85-5.65) 12/21/23 09:55 Hgb 12.20 g/dL (11.27-16.99) 12/21/23 09:55 Hct 37.5 % (36-47) 12/21/23 09:55 MCV 93.8 fl (85-98) 12/21/23 09:55 MCH 30.5 pg (27-33) 12/21/23 09:55 MCHC 32.5 g/dL (30-55) 12/21/23 09:55 RDW 13.3 % (12.1-15.1) 12/21/23 09:55 Plt Count 137 10^3/cmm (157-399) L 12/21/23 09:55 MPV 12.0 fL (7.4-10.4) H 12/21/23 09:55 Neut % (Auto) 94.5 % 12/21/23 09:55 Lymph % (Auto) 2.0 % 12/21/23 09:55 [place] % (Auto) 2.3 % 12/21/23 09:55 Eos % (Auto) 0.2 % 12/21/23 09:55 Baso % (Auto) 0.4 % 12/21/23 09:55 Neut # (Auto) 7.84 10^3/uL (1.8-7.7) H 12/21/23 09:55 Lymph # (Auto) 0.2 10^3/uL (0.8-4.8) L 12/21/23 09:55 [place] # (Auto) 0.2 10^3/uL (0.2-0.9) 12/21/23 09:55 Eos # (Auto) 0.0 10^3/uL (0.0-0.8) 12/21/23 09:55 Baso # (Auto) 0.0 10^3/uL (0.0-0.1) 12/21/23 09:55 Nucleated RBC % (auto) 0 % 12/21/23 09:55 Nucleated RBCs # 0.0 /100WBC 12/21/23 09:55 PT 14.70 SECONDS (12.1-14.9) 12/21/23 13:35 INR 1.11 (0.8-1.2) 12/21/23 13:35 Specimen Type Arterial 12/21/23 13:37 Sample Site Brachial, right 12/21/23 13:37 ABG pH 7.38 (7.35-7.45) 12/21/23 13:37 ABG pCO2 29.9 mmHg (35-45) L 12/21/23 13:37 ABG pO2 65.3 mmHg (80.0-100.0) L 12/21/23 13:37 ABG PO2/FiO2 Ratio 310 12/21/23 13:37 ABG HCO3 17.6 mmol/L (22-26) L 12/21/23 13:37 ABG Base Excess -6.5 mmol/L (-2.0-2.0) L 12/21/23 13:37 Mitchell Test N/a 12/21/23 13:37 Hematocrit 35.1 % (37-47) L 12/21/23 13:37 O2 Delivery Device Room air 12/21/23 13:37 FiO2 21.0 % 12/21/23 13:37 Senior Mobile Application Developer ID Amh 12/21/23 13:37 Sodium 138 mmol/L (136-145) 12/21/23 09:55 Potassium 3.1 mmol/L (3.5-5.1) L 12/21/23 09:55 Chloride 101 mmol/L (98-107) 12/21/23 09:55 Carbon Dioxide 20 mmol/L (22-29) L 12/21/23 09:55 Anion Gap 20.1 (5-19) H 12/21/23 09:55 BUN 8 mg/dL (8-23) 12/21/23 09:55 Creatinine 1.0 mg/dL (0.5-0.9) H 12/21/23 09:55 GFR Calculation 55.6 mL/min (90-130) L 12/21/23 09:55 Glucose 101 mg/dL (65-115) 12/21/23 09:55 Estimat Average Glucose 105 12/21/23 09:55 Hemoglobin A1c 5.3 % (4.0-6.0) 12/21/23 09:55 Calculated Osmolality 284 mOsm/kg (285-295) L 12/21/23 09:55 Lactic Acid 2.7 mmol/L (0.5-2.2) H 12/21/23 09:55 Lactic Acid (Sepsis) 0.9 mmol/L (0.5-2.2) 12/21/23 13:35 Calcium 8.5 mg/dL (8.5-10.5) 12/21/23 09:55 Total Bilirubin 0.5 mg/dL (0.15-1.2) 12/21/23 09:55 AST 19 U/L (0-32) 12/21/23 09:55 ALT 15 U/L (0-33) 12/21/23 09:55 Alkaline Phosphatase 104 U/L (35-105) 12/21/23 09:55 C-Reactive Protein 98.6 mg/L (0.0-4.9) H 12/21/23 09:55 NT-Pro-B Natriuret Pep 1045 pg/mL (0-125) H 12/21/23 09:55 Total Protein 6.4 g/dL (6.6-8.7) L 12/21/23 09:55 Albumin 3.3 g/dL (3.5-5.2) L 12/21/23 09:55 Globulin 3.1 g/dL (1.3-4.6) 12/21/23 09:55 Lipase 15 U/L (13-60) 12/21/23 09:55 Procalcitonin 9.91 ng/mL (0-0.5) H 12/21/23 09:55 Urine Color Dark yellow (Yellow) A 12/21/23 10:36 Urine Appearance Cloudy (CLEAR) A 12/21/23 10:36 Urine pH 5.5 (5-7) 12/21/23 10:36 Ur Specific [place] 1.025 (1.005-1.030) 12/21/23 10:36 Urine Protein 2+ (Negative) A 12/21/23 10:36 Urine Glucose (UA) Negative (Normal) 12/21/23 10:36 Urine Ketones 1+ (Negative) H 12/21/23 10:36 Urine Blood Negative (Negative) 12/21/23 10:36 Urine Nitrate Negative (Negative) 12/21/23 10:36 Urine Bilirubin 1+ (Negative) H 12/21/23 10:36 Urine Urobilinogen 1.0 mg/dL (Negative) 12/21/23 10:36 Ur Leukocyte Esterase Trace (Negative) A 12/21/23 10:36 Urine RBC 0-4 /hpf (0-2) H 12/21/23 10:36 Urine WBC 10-15 /hpf (0-5) H 12/21/23 10:36 Ur Squamous Epith Cells 10-15 /hpf (0-5) H 12/21/23 10:36 Amorphous Sediment Not Reportable 12/21/23 10:36 Urine Bacteria 1+ /hpf (NONE) H 12/21/23 10:36 Hyaline Casts 15-25 /lpf H 12/21/23 10:36 Urine Mucus 2+ /hpf 12/21/23 10:36 Ur Oval Fat Bodies Rare /hpf 12/21/23 10:36 Serum Ketones Negative (Negative) 12/21/23 09:55 Hepatitis A IgM Ab Non-reactive (Nonreactive) 12/21/23 09:55 Hep Bs Antigen Non-reactive (Nonreactive) 12/21/23 09:55 Hep B Core IgM Ab Non-reactive (Nonreactive) 12/21/23 09:55 Hepatitis C Antibody Non-reactive (Nonreactive) 12/21/23 09:55 HIV 1&2 Ab & HIV 1 Ag Non-reactive (Non-Reactiv) 12/21/23 09:55 HIV 1&2 Antibody Non-reactive (Non-Reactiv) 12/21/23 09:55 All radiology interpretation(s) finalized by discharge Critical Care Time Critical Care Time: Critical Care Time: Yes Total Critical Care Time: 40 Attestation: The high probability of a clinically significant, sudden or life threatening deterioration of the patient's [cardiovascular respiratory GI] system(s) required my full and direct attention, intervention and personal management. The critical care time is as shown. This time is in addition to time spent performing any reported procedures but includes the following: [x] Data and vital sign review and interpretation [x] Patient assessment, examination and intervention [x] Documentation [x] Medication orders and management Discharge Plan Discharge Patient Disposition: Admitted As Inpatient Admit Provider: Erasmo Ramírez Clinical Impression: Diverticulitis, Septic shock, Cystitis Condition: Stable Coding Level of Care Code ED Quantitative Analyst for Ysabel Beevrly
--- NOTE | 2023-12-21 12:04 | XR_ITS ---
WS: [id number] Exam: XR chest 1V portable [id number] Date/Time of Exam: 12/21/2023 12:24 PM Reason For Exam: dyspnea/cough No priors. The lungs are fully expanded and clear. Normal heart size. The mediastinum is normal in contour. Sign s of median sternotomy and cardiac valve replacement. Bony structures are intact. XR/XR chest 1V portable [id number] IMPRESSION: 1. No acute cardiopulmonary finding.
--- NOTE | 2023-12-21 12:17 | P.CONIM_ITS ---
Providers/Reason For Consult 2 Consulting Physician/Specialty*: Dr. Wong general surgery Reason for Consult*: Diverticulitis Primary Care Provider: Gabino Henderson MD History of Present Illness History of Present Illness Estephanie Mao is a 63 year old female who presented with acute uncomplicated diverticulitis. Patient has had about 12 hours of lower quadrant pain. Fevers. Some nausea. No hematochezia. No history of scopes. No relevant past medical prior surgical history Per patient. Currently on low-dose Levophed. Undergoing IV fluid resuscitation. Medications/Allergies Home Medications Medication Instructions Recorded Confirmed Last Taken Type albuterol sulfate 90 mcg/actuation 2 puff inhalation Q6H PRN 07/29/23 12/21/23 12/19/23 History aerosol inhaler Shortness Of Breath Or Wheezing aspirin 81 mg tablet,delayed 81 mg PO DAILY 07/29/23 12/21/23 12/20/23 History release cyclobenzaprine 5 mg tablet 5 mg PO TID PRN Muscle Spasm 07/29/23 12/21/23 12/20/23 History Symbicort 160 mcg-4.5 See Rx Instructions .Route 09/11/23 12/21/23 12/20/23 Rx mcg/actuation HFA aerosol inhaler .COMPLEX #11 grams (budesonide-formoterol) atorvastatin 40 mg tablet See Rx Instructions .Route 09/13/23 12/21/23 12/20/23 Rx .COMPLEX #30 tabs losartan 25 mg tablet 25 mg PO DAILY #90 tabs 09/13/23 12/21/23 12/20/23 Rx aripiprazole 2 mg tablet 2 mg PO BEDTIME #30 tabs 10/03/23 12/21/23 12/20/23 Rx duloxetine 60 mg capsule,delayed 120 mg (2 x 60 mg) PO QAM #30 caps 10/03/23 12/21/23 12/20/23 Rx release omeprazole 40 mg capsule,delayed 40 mg PO DAILY #90 caps 10/18/23 12/21/23 12/20/23 Rx release ibuprofen 800 mg tablet 800 mg PO TID PRN pain 10 days #30 12/13/23 12/21/23 12/21/23 Rx tabs trazodone 100 mg tablet See Rx Instructions .Route 12/13/23 12/21/23 12/20/23 Rx .COMPLEX #90 tabs Allergies Allergy/AdvReac Type Severity Reaction Status Date / Time No Known Allergies Allergy Verified 11/27/23 09:51 PFSH Acute 2 PFSH: Medical History Infected laceration of skin Acute pain of left knee Psychiatric care ROBERTO (obstructive sleep apnea) DDD (degenerative disc disease), cervical Essential hypertension Asthma COPD (chronic obstructive pulmonary disease) Depression with anxiety Hyperlipidemia Chronic low back pain Macular degeneration Surgical History H/O section S/P AVR (aortic valve replacement) History of open heart surgery Family History Other Alzheimer disease Cancer Social History Smoking and tobacco/nicotine status: current every day tobacco/nicotine user Female Reproductive History: Spontaneous abortions: No Vitals/I&O/Wt Last Vital Signs Temp 98.3 F 12/21/23 09:35 Pulse 85 12/21/23 10:39 Resp 27 H 12/21/23 10:39 BP 89/45 12/21/23 10:39 Pulse Ox 94 12/21/23 10:39 O2 Del Method Room Air 12/21/23 10:39 Weight last 48 hrs Weight 124 lb Physical Exam 2 Narrative: Chest: Unlabored breathing room air. No lymphadenopathy. Heart: Regular rate and rhythm. Abdomen: Soft, tender LLQ, distended, non peritonitic. No masses or lymphadenopathy. Data 12/21/23 09:55 12/21/23 09:55 Micro: Microbiology 12/21/23 11:26 Blood Culture - Preliminary Blood SPECIMEN COLLECTED 12/21/23 11:20 Blood Culture - Preliminary Blood SPECIMEN COLLECTED A&P Assessment and plan (1) Sigmoid diverticulitis: Plan 63-year-old female with acute noncomplicated diverticulitis. Recommend nonoperative management. Bowel rest, IV fluid resuscitation, IV antibiotics. Once pain is resolved can trial p.o. intake and continue a 14-day course of oral antibiotics. Patient should have a colonoscopy in 6 weeks. She should follow- up with general surgery clinic for this purpose. At this time we should avoid operative management as surgery would involve a Tucker's with an end ileostomy. Coding Level of Care Code 00987 Diagnoses Sigmoid diverticulitis K57.32 Time Spent (min) 30
[2023-12-21 12:38] LABS: Reflex Lactate Order REFLEX LACTIC ORDERD
[2023-12-21] MEDS: piperacillin-tazobactam 3.375 GM in sodium chloride 0.9% (plus) 50 ML IV ×2 (12:48→17:28)
--- NOTE | 2023-12-21 13:17 | ECG_ITS ---
[facility] Test Date: 2023-12-21 Pat Name: Estephanie Mao Department: Room: ICU03 Gender: Female Bladder Tier: : 1960 Requested By: Erasmo Ramírez Order Number: [id number] Villeda MD: Alex Evans M.D. Measurements Intervals [place] Rate: 93 P: 75 [place]: 140 QRS: 45 QRSD: 82 T: 156 QT: 356 QTc: 444 Interpretive Statements SINUS RHYTHM ST DEVIATION AND MODERATE T-WAVE ABNORMALITY, CONSIDER ANTEROLATERAL ISCHEMIA [-0.1+ mV T-WAVE IN V3-V6] Compared to ECG 12/17/2023 20:59:49 Possible ischemia now present T-wave abnormality still present Electronically Signed On 12-21-2023 18:15:41 CDT by Alex Evans M.D. [id number]
--- NOTE | 2023-12-21 13:28 | XR_ITS ---
WS: [id number] Exam: XR chest 1V portable [id number] Date/Time of Exam: 12/21/2023 1:28 PM Reason For Exam: confirm central line placement Comparison with the latest study performed on the same day at 12:55 p.m.. A RIGHT IJ catheter has been placed and appears to end in the lower one third of the SVC near the cav oatrial junction. The lungs remain clear and fully expanded. Normal cardiomediastinal silhouette. No pleural effusions. No other changes. XR/XR chest 1V portable [id number] IMPRESSION: 1. Right-sided IJ catheter probably ending near the cavoatrial junction in sati sfactory location. The chest is otherwise unremarkable.
[2023-12-21] MEDS: sodium chloride 0.9% 1,000 ML 999 ML IV (13:46)
[2023-12-21 13:48] LABS: ABG PCO2 29.9 mmHg (35-45); ABG PH Result 7.38 (7.35-7.45); Arterial Blood Gas Hematocrit 35.1 % (37-47); Base Excess ABG -6.5 mmol/L (-2.0-2.0); Blood Gas Operator Identificat AMH; Blood Gas Sample Site Brachial, right; Blood Gas Sample Type Arterial; HCO3 ABG 17.6 mmol/L (22-26); Oxygen Device ROOM AIR; PO2 ABG 65.3 mmHg (80.0-100.0); PO2 FiO2 Ratio Arterial Blood 310
[2023-12-21 13:53] LABS: Ketone (Acetest) Serum Negative (Negative)
[2023-12-21 13:57] LABS: INR 1.11 (0.8-1.2)
[2023-12-21 14:03] LABS: Lactic Acid level (Lactate) 0.9 mmol/L (0.5-2.2)
[2023-12-21] MEDS: norepinephrine 4 MG/250 ML BAG 30 MG IV (14:09)
[2023-12-21 14:10] LABS: NT Pro B Type Natriuretic Pept 1045 pg/mL (0-125); Procalcitonin 9.91 ng/mL (0-0.5)
[2023-12-21 14:20] LABS: C Reactive Protein 98.6 mg/L (0.0-4.9)
[2023-12-21 14:38] LABS: Troponin(5th) Baseline 26 ng/L (0-10)
--- NOTE | 2023-12-21 15:10 | P.HP_ITS ---
Providers/Chief Complaint 2 Admitting Physician: Erasmo Ramírez MD Primary Care Provider: Gabino Henderson MD Chief Complaint: abd pain History of Present Illness Estephanie Mao is a 63 year old female with a past medical history of aortic valve replacement, currently on aspirin, history of COPD, asthma, current smoker, hypertension, LVH, major depressive disorder, who presents [facility] due to left lower quadrant abdominal pain, nausea, vomiting, poor appetite, lack of stooling. Currently patient is alert to person, place, and she is a bit drowsy, but can answer most questions appropriately. She is currently on Levophed at 10, receiving IV fluids, central line in place right IJ. Patient reports that she has had a few days history of of abdominal pain, her abdominal pain significant work is in early this morning, she did have dinner last night around 6, did have significant nausea vomiting associated, no bowel movement for over 24 hours, does report chills, denies a prior history of diverticulitis, denies any bloody or black stools, Review of Systems 2 Const: Reports: fatigue and malaise Card: Denies: chest pain Resp: Denies: dyspnea GI: Reports: abdominal pain, nausea and vomiting : Denies: difficulty voiding Neuro: Denies: headache(s) Endo: Denies: polyuria Medications/Allergies Home Medications Medication Instructions Recorded Confirmed Last Taken Type albuterol sulfate 90 mcg/actuation 2 puff inhalation Q6H PRN 07/29/23 12/21/23 12/19/23 History aerosol inhaler Shortness Of Breath Or Wheezing aspirin 81 mg tablet,delayed 81 mg PO DAILY 07/29/23 12/21/23 12/20/23 History release cyclobenzaprine 5 mg tablet 5 mg PO TID PRN Muscle Spasm 07/29/23 12/21/23 12/20/23 History Symbicort 160 mcg-4.5 See Rx Instructions .Route 09/11/23 12/21/23 12/20/23 Rx mcg/actuation HFA aerosol inhaler .COMPLEX #11 grams (budesonide-formoterol) atorvastatin 40 mg tablet See Rx Instructions .Route 09/13/23 12/21/23 12/20/23 Rx .COMPLEX #30 tabs losartan 25 mg tablet 25 mg PO DAILY #90 tabs 09/13/23 12/21/2312/19/24 Rx aripiprazole 2 mg tablet 2 mg PO BEDTIME #30 tabs 10/03/23 12/21/23 12/20/23 Rx duloxetine 60 mg capsule,delayed 120 mg (2 x 60 mg) PO QAM #30 caps 10/03/23 12/21/23 12/20/23 Rx release omeprazole 40 mg capsule,delayed 40 mg PO DAILY #90 caps 10/18/23 12/21/23 12/20/23 Rx release ibuprofen 800 mg tablet 800 mg PO TID PRN pain 10 days #30 12/13/23 12/21/23 12/21/23 Rx tabs trazodone 100 mg tablet See Rx Instructions .Route 12/13/23 12/21/23 12/20/23 Rx .COMPLEX #90 tabs Allergies Allergy/AdvReac Type Severity Reaction Status Date / Time No Known Allergies Allergy Verified 11/27/23 09:51 PFSH Acute 2 PFSH: Medical History Infected laceration of skin Acute pain of left knee Psychiatric care ROBERTO (obstructive sleep apnea) DDD (degenerative disc disease), cervical Essential hypertension Asthma COPD (chronic obstructive pulmonary disease) Depression with anxiety Hyperlipidemia Chronic low back pain Macular degeneration Surgical History H/O section S/P AVR (aortic valve replacement) History of open heart surgery Family History Other Alzheimer disease Cancer Social History Smoking and tobacco/nicotine status: current every day tobacco/nicotine user Female Reproductive History: Spontaneous abortions: No Vitals/I&O/Wt Last Vital Signs Temp 98.3 F 12/21/23 09:35 Pulse 85 12/21/23 10:39 Resp 27 H 12/21/23 10:39 BP 89/45 12/21/23 10:39 Pulse Ox 94 12/21/23 10:39 O2 Del Method Room Air 12/21/23 10:39 12/21/23 12/21/23 12/21/23 06:59 14:59 22:59 Intake Total 2752.35 / 2752.35 Balance 2752.35 / 2752.35 Weight last 48 hrs Weight 56.245 kg Physical Exam 2 Const: COMMON NORMALS: no acute distress and patient oriented x3 HENMT: COMMON NORMALS: normocephalic HEAD & SCALP: normocephalic Eye: COMMON NORMALS: Equal, round and reactive pupils present and EOMs intact bilaterally Neck/C-Spine: COMMON NORMALS: no JVD Lymph: LYMPHATIC: no lymphadenopathy noted Resp: COMMON NORMALS: normal respiratory effort, No retractions, No use of accessory muscles and clear to auscultation bilaterally AUSCULTATION: clear to auscultation bilaterally Cardio: COMMON NORMALS: no JVD, regular rate, regular rhythm, S1 normal heart sound present and S2 normal heart sound present RATE: regular rate RHYTHM: regular rhythm HEART SOUNDS: S1 normal heart sound present and S2 normal heart sound present GI: OTHER: Abdomen is soft, distended, diminished bowel sounds, no guarding, no rebound, rigidity, does have left lower quadrant tenderness to palpation Extremity: COMMON NORMALS: no calf tenderness and no pedal edema Neuro: COMMON NORMALS: patient oriented x3, CN's II-XII intact bilaterally and moves all extremities Psych: COMMON NORMALS: mental status grossly normal Sepsis: Is patient septic: Yes Focused sepsis exam performed: Yes F ocused sepsis exam: DP PT pulses bilateral lower extremities palpable, cap refill greater than 2 seconds, mild skin changes of bilateral extremities but no significant mottling Date exam was performed: 12/21/23 Time exam was performed: 15:14 Data 12/21/23 09:55 12/21/23 09:55 Micro: Microbiology 12/21/23 11:26 Blood Culture - Preliminary Blood SPECIMEN COLLECTED 12/21/23 11:20 Blood Culture - Preliminary Blood SPECIMEN COLLECTED A&P Assessment and plan (1) Septic shock: (2) UTI (urinary tract infection): (3) Sigmoid diverticulitis: Plan Acute sigmoid diverticulitis, with radiographic evidence concerning for microperforation ? CT scan abdomen pelvis 1. Advanced acute sigmoid diverticulitis. Narrowing of the lumen with wall enhancement. There are numerous tiny diverticula which are inflamed. Tiny microperforation is likely. There is no abscess identified. Small amount of free fluid in the LEFT pelvis adjacent to what is probably a small contained perforation in the sigmoid colon. 2. Fatty deposition throughout the submucosa involving a portion of the colon. Most likely etiologies obesity. Can also be seen with chronic ulcerative colitis or chemotherapy. 3. Hepatic cysts. ? Pro-Jac 9.91, CRP 98.7 ? Plan ? Serial abdominal exams ? Keep n.p.o., okay to get her psychiatric medications as per surgery ? Follow blood cultures ? Continue broad-spectrum antibiotic therapy ? Continue IV vancomycin -Continue Zosyn ? Continue Levophed at 10, maintain MAP greater than 65 ? IV fluids at 125 cc an hour ? Full code ? Lovenox for DVT prophylaxis UTI ? Urine with evidence of UTI -CT scan no significant radiographic evidence obstructive uropathy ? Antibiotics as above Septic shock -As above -Right IJ central in the place Continue Levophed maintain MAP greater than 65 History of asthma, COPD, history of smoking, monitor respiratory status closely -Not in exacerbation, no wheezing on examination Spoke to ER physician, spoke to general surgery, spoke to nursing staff Attestations 2 Medical Necessity Statement*: Patient requires hospitalization, inpatient, greater than 2 midnights, for acute diverticulitis with microperforation with septic shock with UTI requiring Levophed, ICU admission Coding Level of Care Code Critical Care >/= 30 minutes Critical care time (in minutes): 45 The high probability of a clinically significant, sudden or life threatening deterioration, as referenced in this documentation, required my full and direct attention, intervention and personal management. The critical care time shown is in addition to time spent performing any reported separately billable procedures and includes the following: [x] Data and vital sign review and interpretation [x ] Patient assessment, examination and intervention [x] Medication orders and management [x] Patient/Family updates as able [x] Care Coordination and Documentation. Diagnoses Septic shock A41.9; R65.21 UTI (urinary tract infection) N39.0 Sigmoid diverticulitis K57.32
--- NOTE | 2023-12-21 15:14 | ECG_ITS ---
[facility] Test Date: 2023-12-21 Pat Name: Estephanie Mao Department: Room: [facility] Gender: Female Act English Tutor: : 1960 Requested By: Erasmo Ramírez Order Number: [id number] Christiana MD: Alex Evans M.D. Measurements Intervals [place] Rate: 86 P: 70 RI: 126 QRS: 24 QRSD: 97 T: 126 QT: 382 QTc: 457 Interpretive Statements SINUS RHYTHM NONSPECIFIC T-WAVE ABNORMALITY Compared to ECG 12/21/2023 13:54:36 Possible ischemia no longer present T-wave abnormality still present Electronically Signed On 12-21-2023 18:17:53 CDT by Alex Evans M.D. [id number]
--- NOTE | 2023-12-21 15:20 | XRR_ITS ---
PROCEDURE INFORMATION: Exam: XR Abdomen Exam date and time: 12/21/2023 5:40 PM Age: 63 years old Clinical indication: Constipation; Additional info: Abdominal distentin TECHNIQUE: Imaging protocol: Radiologic exam of the abdomen. Views: Frontal supine view of the abdomen. 1 View. COMPARISON: CT abdomen pelvis con [id number] 12/21/2023 10:57 AM FINDINGS: Gastrointestinal tract: Nonspecific bowel gas pattern. Bones/joints: No acute osseous abnormality. Post median sternotomy XR/XR KUB portable [id number] IMPRESSION: No acute findings.
[2023-12-21] MEDS: pantoprazole 40 mg SDV IVP (15:23)
[2023-12-21] MEDS: sodium chloride 0.9% 1,000 ML 125 ML IV ×2 (15:23→21:55)
[2023-12-21 15:52] LABS: Chol HDL Ratio 4.48 mg/dL (0.0-4.40); Cholesterol 103 mg/dL (0-200); HDL Cholesterol 23 mg/dL (60-100); LDL Cholesterol Calculated 62 mg/dL (50-129); Thyroid Stimulating Hormone 0.85 uIU/mL (0.27-4.20); Triglycerides 88 mg/dL (0-150)
[2023-12-21 15:56] LABS: Hepatitis A Antibody IgM Non-Reactive (Nonreactive); Hepatitis B Core IgM Non-Reactive (Nonreactive); Hepatitis B Surface Antigen Non-Reactive (Nonreactive); Hepatitis C Virus Antibody Non-Reactive (Nonreactive)
[2023-12-21 15:59] LABS: Estmated Average Glucose 105; Hemoglobin A1C 5.3 % (4.0-6.0)
[2023-12-21 16:07] LABS: Troponin 5 2HR 31.58 ng/L (0-10); Troponin 5 2HR Delta 5.58 ABS# (0-10)
--- NOTE | 2023-12-21 16:22 | PHA.VACGOAL ---
Vancomycin Goal - Goal Vancomycin Goal:: 15-20 mg/L Vancomycin Indication:: Other - Therapy Current therapy:: Pip/Tazo Day of therpy:: Day []of [] . Actual body weight (kg): 141 lb 8 oz - Data Labs: WBC 8.30 10^3/uL (3.29-11.43) 12/21/23 09:55 RBC 4.00 10^6/uL (3.85-5.65) 12/21/23 09:55 Hgb 12.20 g/dL (11.27-16.99) 12/21/23 09:55 Hct 37.5 % (36-47) 12/21/23 09:55 MCV 93.8 fl (85-98) 12/21/23 09:55 MCH 30.5 pg (27-33) 12/21/23 09:55 MCHC 32.5 g/dL (30-55) 12/21/23 09:55 RDW 13.3 % (12.1-15.1) 12/21/23 09:55 Sodium 138 mmol/L (136-145) 12/21/23 09:55 Potassium 3.1 mmol/L (3.5-5.1) L 12/21/23 09:55 Chloride 101 mmol/L (98-107) 12/21/23 09:55 Carbon Dioxide 20 mmol/L (22-29) L 12/21/23 09:55 Anion Gap 20.1 (5-19) H 12/21/23 09:55 BUN 8 mg/dL (8-23) 12/21/23 09:55 Creatinine 1.0 mg/dL (0.5-0.9) H 12/21/23 09:55 GFR Calculation 55.6 mL/min (90-130) L 12/21/23 09:55 Treatment plan:: new consult Regimen:: 2000 MG LOAD AND 500 MG Q12H PER OZ PROTOCOL
[2023-12-21 16:57] LABS: HIV 1 & 2 Antibody Non-Reactive (Non-Reactiv); HIV 1 & 2 Antigen Non-Reactive (Non-Reactiv)
[2023-12-21 17:00] LABS: Cortisol Random 20.19 ug/dL (2.47-19.5)
[2023-12-21] MEDS: vancomycin 2,000 MG/400 ML PIGGYBACK 200 MG IV (17:28)
--- NOTE | 2023-12-21 17:45 | PC.NURSE ---
Dr. Cabrera notifed of increase generalized redness on skin. Verbal order given to decrease infusion rate of vancomycin and continue to monitor redness.
--- NOTE | 2023-12-21 17:50 | PC.NURSE ---
Absent bowel sounds noted upon admission, second nurse verification done by Hilario Fountain RN. Dr Ramírez notifed. No new orders given
--- NOTE | 2023-12-21 19:14 | ECG_ITS ---
[facility] Test Date: 2023-12-21 Pat Name: Estephanie Mao Department: Room: ICU03 Gender: Female Senior Training Specialist: : 1960 Requested By: Erasmo Ramírez Order Number: [id number] Christiana MD: Tripp Spencer M.D. Measurements Intervals [place] Rate: 81 P: 71 HI: 131 QRS: 11 QRSD: 88 T: 121 QT: 393 QTc: 459 Interpretive Statements SINUS RHYTHM MODERATE T-WAVE ABNORMALITY, CONSIDER LATERAL ISCHEMIA [-0.1+ mV T-WAVE IN I/aVL/V5/V6] Compared to ECG 12/21/2023 17:09:12 Possible ischemia now present T-wave abnormality still present Electronically Signed On 12-23-2023 21:08:33 CDT by Tripp Spencer M.D. [id number]
[2023-12-21] MEDS: norepinephrine 4 MG/250 ML BAG 45 MG IV (19:45)
[2023-12-21 20:20] LABS: Lactate (Lactic Acid level) 1.1 mmol/L (0.5-2.2)
[2023-12-21 20:22] LABS: Troponin 5 6HR 44.74 ng/L (0-10)
[2023-12-21 20:25] LABS: Troponin 5 6HR Delta 18.74 ng/L (0-12)
[2023-12-21] MEDS: enoxaparin 40 mg/0.4 mL Syringe SUBCUT (21:54)
--- NOTE | 2023-12-21 22:11 | PC.NURSE ---
Benito held due to pt being NPO, called Dr. Hall received verification to hold due to pt status.
[2023-12-21] MEDS: morphine 4 mg/mL SDV 1 mL 2 MG IVP (23:24)
[2023-12-22] VITALS (51 sets, daily range): BP systolic 66–154; BP diastolic 41–70; PULSE 70–99; RESP 11–31; TEMP 36.5–37.8; O2SAT 90–98; BMI 24.7
[2023-12-22 01:08] LABS: Lactate (Lactic Acid level) 0.6 mmol/L (0.5-2.2)
[2023-12-22] MEDS: norepinephrine 4 MG/250 ML BAG 30 MG IV (03:24)
[2023-12-22] MEDS: pantoprazole 40 mg SDV IVP ×2 (03:26→13:35)
[2023-12-22] MEDS: piperacillin-tazobactam 3.375 GM in sodium chloride 0.9% (plus) 50 ML IV ×3 (03:26→16:56)
[2023-12-22 03:39] LABS: Basophils # 0.1 10^3/uL (0.0-0.1); Basophils % 0.4 %; Eosinophils # 0.1 10^3/uL (0.0-0.8); Eosinophils % 0.7 %; Hematocrit 34.3 % (36-47); Mean Corpuscular HGB Conc 32.1 g/dL (30-55); Mean Corpuscular Hemoglobin 30.6 pg (27-33); Mean Corpuscular Volume 95.5 fl (85-98); Mean Platelet Volume 11.9 fL (7.4-10.4); Monocytes # 0.5 10^3/uL (0.2-0.9); Monocytes % 4.3 %; Neutrophils # 10.63 10^3/uL (1.8-7.7); Neutrophils % 86.2 %; Nucleated Red Blood Cells % 0 %; Platelet Count 157 10^3/cmm (157-399); Red Blood Count 3.59 10^6/uL (3.85-5.65); Red Cell Distribution Width 13.6 % (12.1-15.1); White Blood Count 12.34 10^3/uL (3.29-11.43)
[2023-12-22 04:00] LABS: Alanine Aminotransferase 10 U/L (0-33); Albumin Level 2.9 g/dL (3.5-5.2); Alkaline Phosphatase 88 U/L (35-105); Anion Gap 14.2 (5-19); Aspartate Amino Transferase 13 U/L (0-32); Blood Urea Nitrogen 7 mg/dL (8-23); Calcium 7.2 mg/dL (8.5-10.5); Carbon Dioxide 17 mmol/L (22-29); Chloride 114 mmol/L (98-107); Creatinine Clr Calc Pharmacy 58.6292; Globulin 2.7 g/dL (1.3-4.6); Glucose 105 mg/dL (65-115); Magnesium 1.6 mg/dL (1.7-2.3); Osmolality Calculated 292 mOsm/kg (285-295); Phosphorus 2.7 mg/dL (2.5-4.5); Potassium 3.2 mmol/L (3.5-5.1); Sodium 142 mmol/L (136-145); Total Bilirubin 0.5 mg/dL (0.15-1.2); Total Protein 5.6 g/dL (6.6-8.7)
[2023-12-22] MEDS: morphine 4 mg/mL SDV 1 mL 2 MG IVP ×2 (04:17→08:14)
[2023-12-22] MEDS: vancomycin 500 MG in sodium chloride 0.9% (plus) 100 ML 200 MG IV ×2 (04:18→16:47)
[2023-12-22] MEDS: sodium chloride 0.9% 1,000 ML 125 ML IV ×2 (06:22→14:30)
[2023-12-22] MEDS: duloxetine 60 mg Capsule 120 MG PO (06:22)
[2023-12-22 06:26] LABS: Troponin T (5th) Once 34 ng/L (0-10)
[2023-12-22 06:27] LABS: Lactate (Lactic Acid level) 0.4 mmol/L (0.5-2.2)
[2023-12-22] MEDS: ondansetron 2 mg/ML SDV 2 mL 4 MG IVP (08:21)
--- NOTE | 2023-12-22 08:24 | XR_ITS ---
WS: [id number] Exam: XR KUB portable [id number] Date/Time of Exam: 12/22/2023 9:46 AM Reason For Exam: abdominal pain No bowel obstruction or pneumoperitoneum. Organ margins are obscured. Small amount of scattered large and small bowel gas suggesting mild ileus. Bony structures are intact. XR/XR KUB portable [id number] IMPRESSION: 1. Mild ileus. No acute abdominal process.
--- NOTE | 2023-12-22 11:20 | P.PN_ITS ---
Subjective 2 Subjective: Pain resolved Abdomen benign Hungry Feeling better Vitals/I&O/Wt Last Vital Signs Temp 100.1 F H 12/22/23 04:00 Pulse 99 12/22/23 10:00 Resp 19 H 12/22/23 09:30 BP 101/57 12/22/23 10:00 Pulse Ox 92 12/22/23 08:30 O2 Del Method Room Air 12/22/23 06:00 12/21/23 12/22/23 12/22/23 22:59 06:59 14:59 Intake Total 1603.042 / 4355.392 1308.250 / 5663.642 50 / 50 Output Total 1550 / 1550 Balance 1603.042 / 4355.392 -241.750 / 4113.642 50 / 50 Weight last 48 hrs Weight 126 lb 12.253 oz Weight 141 lb 8 oz Weight 124 lb Physical Exam 2 Narrative: Chest: Unlabored breathing room air. No lymphadenopathy. Heart: Regular rate and rhythm. Abdomen: Soft, nontender, mildly distended. No masses or lymphadenopathy. Data 12/22/23 03:24 12/22/23 03:24 Micro: Microbiology 12/21/23 11:26 Blood Culture - Preliminary Blood SPECIMEN COLLECTED 12/21/23 11:20 Blood Culture - Preliminary Blood SPECIMEN COLLECTED A&P Assessment and plan (1) Diverticulitis: Plan 63-year-old female admitted with noncomplicated acute diverticulitis. Recommend advancing to clear liquid diet. Continue IV antibiotics. Will continue serial physical exams. Attestations 2 Medical Necessity Statement*: N/A Coding Level of Care Code 40771 Diagnoses Diverticulitis K57.92 Time Spent (min) 30
--- NOTE | 2023-12-22 12:06 | P.PN_ITS ---
Subjective 2 Subjective: Patient was seen this morning, she is off Levophed, she denies any nausea, no vomiting, she has not had a bowel movement, not passing gas Vitals/I&O/Wt Last Vital Signs Temp 100.1 F H 12/22/23 04:00 Pulse 99 12/22/23 10:00 Resp 19 H 12/22/23 09:30 BP 101/57 12/22/23 10:00 Pulse Ox 92 12/22/23 08:30 O2 Del Method Room Air 12/22/23 06:00 12/21/23 12/22/23 12/22/23 22:59 06:59 14:59 Intake Total 1603.042 / 4355.392 1308.250 / 5663.642 50 / 50 Output Total 1550 / 1550 Balance 1603.042 / 4355.392 -241.750 / 4113.642 50 / 50 Weight last 48 hrs Weight 57.5 kg Weight 64.183 kg Weight 56.245 kg Physical Exam 2 Const: COMMON NORMALS: no acute distress and patient oriented x3 Resp: COMMON NORMALS: normal respiratory effort, No retractions, No use of accessory muscles and clear to auscultation bilaterally AUSCULTATION: clear to auscultation bilaterally Cardio: COMMON NORMALS: regular rate, regular rhythm, S1 normal heart sound present and S2 normal heart sound present RATE: regular rate RHYTHM: r egular rhythm HEART SOUNDS: S1 normal heart sound present and S2 normal heart sound present GI: OTHER: Abdomen soft, slightly distended, good bowel sounds in all 4 quadrants, no guarding, no rebound, rigidity Extremity: COMMON NORMALS: no pedal edema Neuro: COMMON NORMALS: patient oriented x3 Psych: COMMON NORMALS: mental status grossly normal Data 12/22/23 03:24 12/22/23 03:24 Micro: Microbiology 12/21/23 11:26 Blood Culture - Preliminary Blood NEGATIVE TO DATE 12/21/23 11:20 Blood Culture - Preliminary Blood NEGATIVE TO DATE A&P Assessment and plan (1) Septic shock: (2) UTI (urinary tract infection): (3) Sigmoid diverticulitis: Plan Acute sigmoid diverticulitis, with radiographic evidence concerning for microperforation ? CT scan abdomen pelvis 1. Advanced acute sigmoid diverticulitis. Narrowing of the lumen with wall enhancement. There are numerous tiny diverticula which are inflamed. Tiny microperforation is likely. There is no abscess identified. Small amount of free fluid in the LEFT pelvis adjacent to what is probably a small contained perforation in the sigmoid colon. 2. Fatty deposition throughout the submucosa involving a portion of the colon. Most likely etiologies obesity. Can also be seen with chronic ulcerative colitis or chemotherapy. 3. Hepatic cysts. ? Pro-Jac 9.91, CRP 98.7 ? Plan ? Serial abdominal exams ? Start clears as per surgery okay to get her psychiatric medications as per surgery ? Follow blood cultures ? Continue broad-spectrum antibiotic therapy ? Continue IV vancomycin -Continue Zosyn ? Off Levophed, monitor MAP ? IV fluids at 125 cc an hour ? Full code ? Lovenox for DVT prophylaxis UTI ? Urine with evidence of UTI -CT scan no significant radiographic evidence obstructive uropathy ? Antibiotics as above Septic shock -As above -Right IJ central in the place Continue Levophed maintain MAP greater than 65 History of asthma, COPD, history of smoking, monitor respiratory status closely -Not in exacerbation, no wheezing on examination Elevated troponins, no chest pain complaints, will continue to monitor closely -Type I versus type II, likely to be related to septic shock -No chest pain complaints -Monitor closely -Continue aspirin, statin -Cardiac echo Hypokalemia, replace Spoke to ER physician, spoke to general surgery, spoke to nursing staff Attestations 2 Medical Necessity Statement*: Patient requires hospitalization for acute sigmoid diverticulitis with microperforation Diagnoses Septic shock A41.9; R65.21 UTI (urinary tract infection) N39.0 Sigmoid diverticulitis K57.32
--- NOTE | 2023-12-22 12:08 | USCV_ITS ---
Estephanie Mao Age: 63 Gender: F : 1960 Exam Date: 12/22/2023 15:34 Ordering Phys: Erasmo Ramírez MD Technologist: Liam Mckeon [place] [facility] [place]ication: nstemi BP: 86 / 46 HR: 69 Rhythm: Sinus Technical Quality: Adequate MEASUREMENTS (Male / Female) Normal Values 2D ECHO LV Diastolic Diameter PLAX 3.9 cm 4.2 - 5.9 / 3.9 - 5.3 cm IVS Diastolic Thickness 1.4 cm 0.6 - 1.0 / 0.6 - 0.9 cm IVS Systolic Thickness 1.8 cm LVPW Diastolic Thickness 2.1 cm 0.6 - 1.0 / 0.6 - 0.9 cm LVPW Systolic Thickness 1.9 cm LVOT Diameter 2.0 cm LV Ejection Fraction 2D Teich 82.8 % LV Ejection Fraction MOD 4C 80.2 % LV Ejection Fraction MOD 2C 75.2 % LV Ejection Fraction 2C AL 77.3 % LA Diameter 3.7 cm RA Systolic Volume 4C AL 18.1 ml RA Systolic Volume 4C MOD 19.0 ml LA Sys Volume AL 44.2 cm cubed LA Sys Volume Index AL 28.5 cm cubed/m squared Aorta at Sinotubular Diameter 1.8 cm IVC Diameter 1.9 cm M-MODE LA Ao Ratio MM 1.9 AV Cusp Separation MM 1.5 cm DOPPLER AV Peak Velocity 304.0 cm/s LVOT Peak Velocity 75.0 cm/s AV Area Cont Eq vti 1.4 cm squared AV Area Cont Eq pk 0.8 cm squared MV Peak Velocity 183.0 cm/s MV Area PHT 3.7 cm squared Mitral E to A Ratio 2.1 TV Peak Velocity 274.5 cm/s TR Peak Velocity 313.0 cm/s TR Peak Gradient 39.2 mmHg TR Mean Velocity 208.0 cm/s TR Mean Gradient 20.3 mmHg TR Velocity Time Integral 74.9 cm PV Peak Velocity 240.0 cm/s RV Ejection Time 0.4 s FINDINGS Left Ventricle Mild to moderate concentric left ventricular hypertrophy with normal ejection fraction of 77%.no regional wall motion abnormalities. Grade III/IV diastolic dysfunction (restrictive filling pattern), severely elevated filling pressures. Right Ventricle The right ventricle is normal in size and function. Right Atrium The right atrium is normal in size. Left Atrium Mildly increased left atrial size. Mitral Valve Thickened mitral valve. Aortic Valve The bioprosthetic valve at the aortic position appears to be well-seated trace aortic valve regurgitation. Moderate aortic valve stenosis,FERNANDO 1.4 cm squared. Peak velocity of 3.04 m/s with a peak gradient of 37 and a mean gradient of 18 mmHg Tricuspid Valve Mild tricuspid valve regurgitation. Estimated pulmonary artery peak systolic pressure 49 mmHg Pulmonic Valve Mild pulmonary valve regurgitation. Pericardium Normal pericardium without effusion. Aorta Normal ascending aorta dimension. IVC Normal IVC dimension with <50% respiratory change of the inferior vena cava. CONCLUSIONS Mild to moderate concentric left ventricular hypertrophy with normal ejection fraction of 77%.no regional wall motion abnormalities. Grade III/IV diastolic dysfunction (restrictive filling pattern), severely elevated filling pressures. Mildly increased left atrial size. Thickened mitral valve. Bioprosthetic valve at the aortic position appears to be well- seated. Moderate aortic valve stenosis,FERNANDO 1.4 cm squared. Peak velocity of 3.04 m/s with a peak gradient of 37 and a mean gradient of 18 mmHg. Trace aortic valve regurgitation. Mild tricuspid valve regurgitation. Estimated pulmonary artery peak systolic pressure 49 mmHg. Mild pulmonary valve regurgitation. Compared to the study from 11/08/2021, there may not be a significant change Dr Tripp Spencer MD [facility] (Electronically Signed) Final Date: 22 December 2023 17:13 S
[2023-12-22] MEDS: POTASSIUM CHLORIDE IV (12:31)
[2023-12-22] MEDS: LIDOCAINE 1% IV (12:31)
[2023-12-22] MEDS: aspirin 81 mg EC Tablet PO (12:31)
[2023-12-22] MEDS: enoxaparin 40 mg/0.4 mL Syringe SUBCUT (21:39)
[2023-12-22] MEDS: ARIPiprazole 2 mg Tablet PO (21:39)
[2023-12-23] VITALS (25 sets, daily range): BP systolic 90–133; BP diastolic 47–74; PULSE 69–90; RESP 18–28; TEMP 36.5–36.7; O2SAT 90–98; BMI 26.4
[2023-12-23] MEDS: sodium chloride 0.9% 1,000 ML 125 ML IV (00:22)
[2023-12-23] MEDS: pantoprazole 40 mg SDV IVP (03:04)
[2023-12-23] MEDS: piperacillin-tazobactam 3.375 GM in sodium chloride 0.9% (plus) 50 ML IV ×2 (03:04→09:59)
[2023-12-23 03:07] LABS: Basophils % 0.3 %; Eosinophils # 0.1 10^3/uL (0.0-0.8); Eosinophils % 1.2 %; Hematocrit 30.3 % (36-47); Lymphocytes # 0.6 10^3/uL (0.8-4.8); Lymphocytes % 7.3 %; Mean Corpuscular HGB Conc 31.4 g/dL (30-55); Mean Corpuscular Hemoglobin 30.8 pg (27-33); Mean Corpuscular Volume 98.4 fl (85-98); Mean Platelet Volume 11.7 fL (7.4-10.4); Monocytes # 0.4 10^3/uL (0.2-0.9); Monocytes % 4.3 %; Neutrophils # 7.45 10^3/uL (1.8-7.7); Neutrophils % 85.7 %; Nucleated Red Blood Cells % 0 %; Platelet Count 124 10^3/cmm (157-399); Red Blood Count 3.08 10^6/uL (3.85-5.65); Red Cell Distribution Width 13.7 % (12.1-15.1); White Blood Count 8.68 10^3/uL (3.29-11.43)
[2023-12-23 03:19] LABS: Alanine Aminotransferase 9 U/L (0-33); Albumin Level 2.7 g/dL (3.5-5.2); Alkaline Phosphatase 77 U/L (35-105); Anion Gap 15.9 (5-19); Aspartate Amino Transferase 12 U/L (0-32); Blood Urea Nitrogen 8 mg/dL (8-23); Calcium 6.6 mg/dL (8.5-10.5); Carbon Dioxide 14 mmol/L (22-29); Chloride 114 mmol/L (98-107); Creatinine Clr Calc Pharmacy 55.6706; Globulin 1.9 g/dL (1.3-4.6); Glucose 56 mg/dL (65-115); Magnesium 1.5 mg/dL (1.7-2.3); Osmolality Calculated 286 mOsm/kg (285-295); Phosphorus 2.2 mg/dL (2.5-4.5); Potassium 3.9 mmol/L (3.5-5.1); Sodium 140 mmol/L (136-145); Total Bilirubin 0.3 mg/dL (0.15-1.2); Total Protein 4.6 g/dL (6.6-8.7)
[2023-12-23 03:20] LABS: Vancomycin Trough 11.8 ug/mL (10-15)
[2023-12-23] MEDS: vancomycin 500 MG in sodium chloride 0.9% (plus) 100 ML 200 MG IV (03:38)
[2023-12-23] MEDS: dextrose 5%-sod chloride 0.9% 1,000 ML 125 ML IV (04:04)
[2023-12-23] MEDS: duloxetine 60 mg Capsule 120 MG PO (05:11)
[2023-12-23] MEDS: atorvastatin 40 mg Tablet PO (08:41)
[2023-12-23] MEDS: phosphorus 250 mg Tablet PO (08:41)
[2023-12-23] MEDS: magnesium lactate 84 mg Tablet PO (08:41)
[2023-12-23] MEDS: aspirin 81 mg EC Tablet PO (08:41)
[2023-12-23] MEDS: sodium bicarbonate 650 mg Tablet PO (08:42)
--- NOTE | 2023-12-23 09:39 | PC.NURSE ---
am breakfast served gi soft pt requesting to go home ivf on hold will repeat lab at 1600 today per order
--- NOTE | 2023-12-23 11:14 | XRR_ITS ---
PROCEDURE INFORMATION: Exam: XR Abdomen Exam date and time: 12/23/2023 12:50 PM Age: 63 years old Clinical indication: Abdominal tenderness; Patient HX: Abdominal pain/distention TECHNIQUE: Imaging protocol: Radiologic exam of the abdomen. Views: Frontal supine view of the abdomen. 1 View. COMPARISON: CR XR KUB portable [id number] 12/22/2023 11:13 AM FINDINGS: Lungs: Visualized lung bases appear clear. Gastrointestinal tract: Nonobstructive bowel gas pattern. Vasculature: Pelvic calcifications likely representing phleboliths. Bones/joints: Regional osseous structures are unchanged. XR/XR KUB portable [id number] IMPRESSION: No radiographically apparent acute abdominal findings.
[2023-12-23 12:02] LABS: Glucose Point of Care 149 mg/dL (70-110)
[2023-12-23 12:02] LABS: Glucose Point of Care 54 mg/dL (70-110)
--- NOTE | 2023-12-23 12:03 | P.CONIM_ITS ---
Providers/Reason For Consult 2 Attending Physician: Erasmo Ramírez MD Primary Care Provider: Gabino Henderson MD History of Present Illness History of Present Illness Estephanie Mao is a 63 year old female Medications/Allergies Home Medications Medication Instructions Recorded Confirmed Last Taken Type albuterol sulfate 90 mcg/actuation 2 puff inhalation Q6H PRN 07/29/23 12/21/23 12/19/23 History aerosol inhaler Shortness Of Breath Or Wheezing aspirin 81 mg tablet,delayed 81 mg PO DAILY 07/29/23 12/21/23 12/20/23 History release cyclobenzaprine 5 mg tablet 5 mg PO TID PRN Muscle Spasm 07/29/23 12/21/23 12/20/23 History Symbicort 160 mcg-4.5 See Rx Instructions .Route 09/11/23 12/21/23 12/20/23 Rx mcg/actuation HFA aerosol inhaler .COMPLEX #11 grams (budesonide-formoterol) atorvastatin 40 mg tablet See Rx Instructions .Route 09/13/23 12/21/23 12/20/23 Rx .COMPLEX #30 tabs losartan 25 mg tablet 25 mg PO DAILY #90 tabs 09/13/23 12/21/23 12/20/23 Rx aripiprazole 2 mg tablet 2 mg PO BEDTIME #30 tabs 10/03/23 12/21/23 12/20/23 Rx duloxetine 60 mg capsule,delayed 120 mg (2 x 60 mg) PO QAM #30 caps 10/03/23 12/21/23 12/20/23 Rx release omeprazole 40 mg capsule,delayed 40 mg PO DAILY #90 caps 10/18/23 12/21/23 12/20/23 Rx release ibuprofen 800 mg tablet 800 mg PO TID PRN pain 10 days #30 12/13/23 12/21/23 12/21/23 Rx tabs trazodone 100 mg tablet See Rx Instructions .Route 12/13/23 12/21/23 12/20/23 Rx .COMPLEX #90 tabs Allergies Allergy/AdvReac Type Severity Reaction Status Date / Time No Known Allergies Allergy Verified 11/27/23 09:51 Current Medications Generic Name Dose Route Start Last Admin Trade Name Freq PRN Reason Stop Dose Admin Aripiprazole 2 mg 12/21/23 21:00 12/22/23 21:39 Aripiprazole 2 Mg Tablet PO 2 mg BEDTIME MARGARET Administration Aspirin 81 mg 12/22/23 12:10 12/23/23 08:41 Aspirin 81 Mg Ec Tablet PO 81 mg DAILY MARGARET Administration Atorvastatin Calcium 40 mg 12/23/23 09:00 12/23/23 08:41 Atorvastatin 40 Mg Tablet PO 40 mg DAILY MARGARET Administration Duloxetine HCl 120 mg 12/22/23 06:00 12/23/23 05:11 Duloxetine 60 Mg Capsule PO 120 mg QAM MARGARET Administration Enoxaparin Sodium 40 mg 12/21/23 21:00 12/22/23 21:39 Enoxaparin 40 Mg/0.4 Ml Syringe SUBCUT 40 mg Q24H MARGARET Administration Norepinephrine Bitartrate 4 mg in 250 mls @ 0 mls/hr 12/21/23 11:45 12/22/23 10:30 Levophed IV 0 mcg/min .Q0M MARGARET 0 mls/hr Titration Protocol Per Protocol Piperacillin Sod/Tazobactam 50 mls @ 12.5 mls/hr 12/21/23 18:00 12/23/23 09:59 Sod 3.375 gm/ Sodium Chloride IV 12.5 mls/hr Q8H MARGARET Administration Protocol Dextrose/Sodium Chloride 1,000 mls @ 125 mls/hr 12/23/23 03:45 12/23/23 04:04 Dextrose 5%-Sod Chloride 0.9% IV 125 mls/hr .Q8H MARGARET Administration Magnesium Lactate 84 mg 12/23/23 09:00 12/23/23 08:41 Magnesium Lactate 84 Mg Tablet PO 84 mg BID MARGARET Administration Morphine Sulfate 2 mg 12/21/23 14:56 12/22/23 08:14 Morphine 4 Mg/Ml Sdv 1 Ml IVP 2 mg Q4H PRN Administration SEVERE PAIN Ondansetron HCl 4 mg 12/21/23 14:56 12/22/23 08:21 Ondansetron 2 Mg/Ml Sdv 2 Ml IVP 4 mg Q6H PRN Administration NAUSEA AND VOMITING Pantoprazole Sodium 40 mg 12/21/23 14:56 12/23/23 03:04 Pantoprazole 40 Mg Sdv IVP 40 mg Q12H MARGARET Administration Potassium Phosphate 250 mg 12/23/23 09:00 12/23/23 08:41 Phosphorus 250 Mg Tablet PO 250 mg BID MARGARET Administration Sodium Bicarbonate 650 mg 12/23/23 09:00 12/23/23 08:42 Sodium Bicarbonate 650 Mg Tablet PO 650 mg TID MARGARET Administration PFSH Acute 2 PFSH: Medical History Infected laceration of skin Acute pain of left knee Psychiatric care ROBERTO (obstructive sleep apnea) DDD (degenerative disc disease), cervical Essential hypertension Asthma COPD (chronic obstructive pulmonary disease) Depression with anxiety Hyperlipidemia Chronic low back pain Macular degeneration Surgical History H/O section S/P AVR (aortic valve replacement) History of open heart surgery Family History Other Alzheimer disease Cancer Social History Smoking and tobacco/nicotine status: current every day tobacco/nicotine user Female Reproductive History: Spontaneous abortions: No Vitals/I&O/Wt Last Vital Signs Temp 97.7 F 12/23/23 04:07 Pulse 74 12/23/23 10:00 Resp 21 H 12/23/23 10:00 BP 114/61 12/23/23 10:00 Pulse Ox 96 12/23/23 10:00 O2 Del Method Room Air 12/23/23 07:52 12/22/23 12/23/23 12/23/23 22:59 06:59 14:59 Intake Total 1460 / 2850 1048.75 / 3898.75 350 / 350 Output Total 400 / 400 500 / 900 Balance 1060 / 2450 548.75 / 2998.75 350 / 350 Weight last 48 hrs Weight 135 lb 9.349 oz Weight 126 lb 12.253 oz Weight 141 lb 8 oz Data 12/23/23 02:51 12/23/23 02:51 Micro: Microbiology 12/21/23 11:26 Blood Culture - Preliminary Blood NEGATIVE TO DATE 12/21/23 11:20 Blood Culture - Preliminary Blood NEGATIVE TO DATE Coding Level of Care Code Acute Code for Chg Fwd
--- NOTE | 2023-12-23 12:49 | P.PN_ITS ---
Subjective 2 Subjective: Tolerating regular diet Pain subsided Abdomen benign Hemodynamically stable Vitals/I&O/Wt Last Vital Signs Temp 97.7 F 12/23/23 04:07 Pulse 79 12/23/23 12:00 Resp 21 H 12/23/23 12:00 BP 121/63 12/23/23 12:00 Pulse Ox 98 12/23/23 12:00 O2 Del Method Room Air 12/23/23 07:52 12/22/23 12/23/23 12/23/23 22:59 06:59 14:59 Intake Total 1460 / 2850 1048.75 / 3898.75 1500 / 1500 Output Total 400 / 400 500 / 900 Balance 1060 / 2450 548.75 / 2998.75 1500 / 1500 Weight last 48 hrs Weight 135 lb 9.349 oz Weight 126 lb 12.253 oz Weight 141 lb 8 oz Physical Exam 2 Narrative: Chest: Unlabored breathing room air. No lymphadenopathy. Heart: Regular rate and rhythm. Abdomen: Soft, nontender, nondistended. No masses or lymphadenopathy. Data 12/23/23 02:51 12/23/23 02:51 Micro: Microbiology 12/21/23 11:26 Blood Culture - Preliminary Blood NEGATIVE TO DATE 12/21/23 11:20 Blood Culture - Preliminary Blood NEGATIVE TO DATE A&P Assessment and plan (1) Diverticulitis: Plan 63-year-old female who presented with acute noncomplicated diverticulitis. Responded to nonoperative management. She needs to follow-up with general surgery to plan for colonoscopy in 6 weeks to confirm diagnosis. From a surgical perspective okay for regular diet and discharge home and if she tolerates it. Attestations 2 Medical Necessity Statement*: N/A Coding Level of Care Code 51228 Diagnoses Diverticulitis K57.92 Time Spent (min) 30
[2023-12-23 14:22] LABS: Anion Gap 11.6 (5-19); Blood Urea Nitrogen 5 mg/dL (8-23); Calcium 7.1 mg/dL (8.5-10.5); Carbon Dioxide 17 mmol/L (22-29); Chloride 115 mmol/L (98-107); Creatinine Clr Calc Pharmacy 57.4414; Glucose 160 mg/dL (65-115); Osmolality Calculated 291 mOsm/kg (285-295); Potassium 3.6 mmol/L (3.5-5.1); Sodium 140 mmol/L (136-145)
[2023-12-23] MEDS: acetaminophen 325 mg Tablet 650 MG PO (14:35)
--- NOTE | 2023-12-23 14:40 | P.DS_ITS ---
Discharge Providers Date of Admission: 12/21/23 13:45 Date of Discharge: December 23, 2023 Attending Provider at Admission: Erasmo Ramírez MD Attending Provider at Discharge: Erasmo Ramírez MD Primary Care Provider: Gabino Henderson MD Diagnoses at Discharge Discharge Diagnosis (1) Diverticulitis: Status: Acute Reason for Visit Reason for Visit: abd pain Hospital Course Hospital Course Estephanie Mao is a 63 year old female with a past medical history of aortic valve replacement, currently on aspirin, history of COPD, asthma, current smoker, hypertension, LVH, major depressive disorder, who presents [facility] due to left lower quadrant abdominal pain, nausea, vomiting, poor appetite, lack of stooling. Currently patient is alert to person, place, and she is a bit drowsy, but can answer most questions appropriately. She is currently on Levophed at 10, receiving IV fluids, central line in place right IJ. Patient reports that she has had a few days history of of abdominal pain, her abdominal pain significant work is in early this morning, she did have dinner last night around 6, did have significant nausea vomiting associated, no bowel movement for over 24 hours, does report chills, denies a prior history of diverticulitis, denies any bloody or black stools, Patient was admitted to [facility] ICU for acute sigmoid diverticulitis, with radiographic evidence concerning for microperforation, with septic shock requiring pressors ? CT scan abdomen pelvis 1. Advanced acute sigmoid diverticulitis. Narrowing of the lumen with wall enhancement. There are numerous tiny diverticula which are inflamed. Tiny microperforation is likely. There is no abscess identified. Small amount of free fluid in the LEFT pelvis adjacent to what is probably a small contained perforation in the sigmoid colon. 2. Fatty deposition throughout the submucosa involving a portion of the colon. Most likely etiologies obesity. Can also be seen with chronic ulcerative colitis or chemotherapy. 3. Hepatic cysts. ? Pro-Jac 9.91, CRP 98.7 -Overall patient's condition significantly improved, she came off pressors quickly, septic shock resolved, managed with broad-spectrum antibiotic therapy, abdominal pain resolved, having several bowel movements, passing gas, transition to clears, tolerated clears well, transition to GI soft diet, tolerated well, -On discharge continues to have passed bowel movements, passed gas, abdominal exam benign -Patient remains afebrile, blood cultures so far are negative, she has no significant pain complaints -Will discharge her on 2 weeks of p.o. ciprofloxacin, Flagyl -Discharged her p.o. electrolyte for electrolyte abnormalities -Advised patient to hydrate well, drink plenty of electrolyte balanced fluids -For now adhere to a GI soft low fiber diet for the next 2 to 4 weeks -After 4 weeks and abdominal pain is resolved, then he can transition to a high- fiber diet -Follow-up with general surgery in 2 weeks -Did discuss with her that she has an increased risk of intra-abdominal abscesses, given her radiographic evidence of microperforation, if she develops worsening abdominal pain, fevers, chills, lack of stooling to immediately go to the emergency room -See primary care provider in 2 weeks -There is also concern for UTI, discharged on Cipro as above -Also concerns for type II NSTEMI during the hospitalization, no chest pain complaints, continue to monitor continue aspirin, statin, if any chest pain please go to emergency room Physical Exam Const: COMMON NORMALS: no acute distress and patient oriented x3 Resp: COMMON NORMALS: normal respiratory effort, No retractions, No use of accessory muscles and clear to auscultation bilaterally AUSCULTATION: clear to auscultation bilaterally Cardio: COMMON NORMALS: regular rate, regular rhythm, S1 normal heart sound present and S2 normal heart sound present RATE: regular rate RHYTHM: regular rhythm HEART SOUNDS: S1 normal heart sound present and S2 normal heart sound present GI: COMMON NORMALS: Normal to inspection, nondistended, normoactive bowel sounds present and non-tender Extremity: COMMON NORMALS: no pedal edema Neuro: COMMON NORMALS: patient oriented x3 Psych: COMMON NORMALS: mental status grossly normal Discharge Data Studies Completed and Pending Completed Studies During Hospitalization Category Date Time Status CT abdomen pelvis wo con [id number] Stat Cat Scan 12/21/23 10:14 Completed XR KUB portable [id number] Routine Exams 12/21/23 15:20 Completed XR KUB portable [id number] Routine Exams 12/22/23 08:24 Completed XR KUB portable [id number] Routine Exams 12/23/23 11:14 Completed XR chest 1V portable [id number] Stat Exams 12/21/23 12:04 Completed XR chest 1V portable [id number] Stat Exams 12/21/23 13:28 Completed CV. echo complete* [id number] Routine Ultrasound 12/22/23 12:08 Completed Pending at discharge Category Date Time Status Blood Culture Stat Lab 12/21/23 11:26 Results Complete Blood Count w/Auto AM LABS Lab 12/24/23 04:00 Ordered Comprehensive Metabolic Panel AM LABS Lab 12/24/23 04:00 Ordered Magnesium AM LABS Lab 12/24/23 04:00 Ordered Phosphorus AM LABS Lab 12/24/23 04:00 Ordered Radiology Impressions Abdomen/Pelvis CT 12/21/23 10:14 IMPRESSION: 1. Advanced acute sigmoid diverticulitis. Narrowing of the lumen with wall enhancement. There are numerous tiny diverticula which are inflamed. Tiny microperforation is likely. There is no abscess identified. Small amount of free fluid in the LEFT pelvis adjacent to what is probably a small contained perforation in the sigmoid colon. 2. Fatty deposition throughout the submucosa involving a portion of the colon. Most likely etiologies obesity. Can also be seen with chronic ulcerative colitis or chemotherapy. 3. Hepatic cysts. Chest X-Ray 12/21/23 13:28 IMPRESSION: 1. Right-sided IJ catheter probably ending near the cavoatrial junction in satisfactory location. The chest is otherwise unremarkable. KUB X-Ray 12/23/23 11:14 IMPRESSION: No radiographically apparent acute abdominal findings. Laboratory Results WBC 8.68 10^3/uL (3.29-11.43) 12/23/23 02:51 RBC 3.08 10^6/uL (3.85-5.65) L 12/23/23 02:51 Hgb 9.50 g/dL (11.27-16.99) L 12/23/23 02:51 Hct 30.3 % (36-47) L 12/23/23 02:51 MCV 98.4 fl (85-98) H 12/23/23 02:51 MCH 30.8 pg (27-33) 12/23/23 02:51 MCHC 31.4 g/dL (30-55) 12/23/23 02:51 RDW 13.7 % (12.1-15.1) 12/23/23 02:51 Plt Count 124 10^3/cmm (157-399) L 12/23/23 02:51 MPV 11.7 fL (7.4-10.4) H 12/23/23 02:51 Neut % (Auto) 85.7 % 12/23/23 02:51 Lymph % (Auto) 7.3 % 12/23/23 02:51 [place] % (Auto) 4.3 % 12/23/23 02:51 Eos % (Auto) 1.2 % 12/23/23 02:51 Baso % (Auto) 0.3 % 12/23/23 02:51 Neut # (Auto) 7.45 10^3/uL (1.8-7.7) 12/23/23 02:51 Lymph # (Auto) 0.6 10^3/uL (0.8-4.8) L 12/23/23 02:51 [place] # (Auto) 0.4 10^3/uL (0.2-0.9) 12/23/23 02:51 Eos # (Auto) 0.1 10^3/uL (0.0-0.8) 12/23/23 02:51 Baso # (Auto) 0.0 10^3/uL (0.0-0.1) 12/23/23 02:51 Nucleated RBC % (auto) 0 % 12/23/23 02:51 Nucleated RBCs # 0.0 /100WBC 12/23/23 02:51 PT 14.70 SECONDS (12.1-14.9) 12/21/23 13:35 INR 1.11 (0.8-1.2) 12/21/23 13:35 Specimen Type Arterial 12/21/23 13:37 Sample Site Brachial, right 12/21/23 13:37 ABG pH 7.38 (7.35-7.45) 12/21/23 13:37 ABG pCO2 29.9 mmHg (35-45) L 12/21/23 13:37 ABG pO2 65.3 mmHg (80.0-100.0) L 12/21/23 13:37 ABG PO2/FiO2 Ratio 310 12/21/23 13:37 ABG HCO3 17.6 mmol/L (22-26) L 12/21/23 13:37 ABG Base Excess -6.5 mmol/L (-2.0-2.0) L 12/21/23 13:37 Mitchell Test N/a 12/21/23 13:37 Hematocrit 35.1 % (37-47) L 12/21/23 13:37 O2 Delivery Device Room air 12/21/23 13:37 FiO2 21.0 % 12/21/23 13:37 Director Diversity ID Amh 12/21/23 13:37 Sodium 140 mmol/L (136-145) 12/23/23 13:55 Potassium 3.6 mmol/L (3.5-5.1) 12/23/23 13:55 Chloride 115 mmol/L (98-107) H 12/23/23 13:55 Carbon Dioxide 17 mmol/L (22-29) L 12/23/23 13:55 Anion Gap 11.6 (5-19) 12/23/23 13:55 BUN 5 mg/dL (8-23) L 12/23/23 13:55 Creatinine 0.7 mg/dL (0.5-0.9) 12/23/23 13:55 GFR Calculation 84.0 mL/min (90-130) L 12/23/23 13:55 Glucose 160 mg/dL (65-115) H 12/23/23 13:55 POC Glucose 149 mg/dL (70-110) H 12/23/23 05:17 Estimat Average Glucose 105 12/21/23 09:55 Hemoglobin A1c 5.3 % (4.0-6.0) 12/21/23 09:55 Calculated Osmolality 291 mOsm/kg (285-295) 12/23/23 13:55 Lactic Acid 2.7 mmol/L (0.5-2.2) H 12/21/23 09:55 Lactic Acid (Sepsis) 0.9 mmol/L (0.5-2.2) 12/21/23 13:35 Lactate 0.4 mmol/L (0.5-2.2) L 12/22/23 05:39 Calcium 7.1 mg/dL (8.5-10.5) L 12/23/23 13:55 Phosphorus 2.2 mg/dL (2.5-4.5) L 12/23/23 02:51 Magnesium 1.5 mg/dL (1.7-2.3) L 12/23/23 02:51 Total Bilirubin 0.3 mg/dL (0.15-1.2) 12/23/23 02:51 AST 12 U/L (0-32) 12/23/23 02:51 ALT 9 U/L (0-33) 12/23/23 02:51 Alkaline Phosphatase 77 U/L (35-105) 12/23/23 02:51 Troponin T 5th Gen ng/L 34 ng/L (0-10) H 12/22/23 05:39 Troponin T Baseline 26 ng/L (0-10) H 12/21/23 14:08 Troponin T 120 Minute 31.58 ng/L (0-10) H 12/21/23 15:37 Delta Troponin T 5.58 ABS# (0-10) 12/21/23 15:37 Troponin T Hi Sens 6Hr 44.74 ng/L (0-10) H 12/21/23 19:39 Troponin T Hi Sens 6Hr Delta 18.74 ng/L (0-12) H* 12/21/23 19:39 C-Reactive Protein 98.6 mg/L (0.0-4.9) H 12/21/23 09:55 NT-Pro-B Natriuret Pep 1045 pg/mL (0-125) H 12/21/23 09:55 Total Protein 4.6 g/dL (6.6-8.7) L 12/23/23 02:51 Albumin 2.7 g/dL (3.5-5.2) L 12/23/23 02:51 Globulin 1.9 g/dL (1.3-4.6) 12/23/23 02:51 Triglycerides 88 mg/dL (0-150) 12/21/23 14:08 Cholesterol 103 mg/dL (0-200) 12/21/23 14:08 LDL Cholesterol, Calc 62 mg/dL (50-129) 12/21/23 14:08 HDL Cholesterol 23 mg/dL (60-100) L 12/21/23 14:08 LDL/HDL Ratio 2.70 RATIO (0.00-3.22) 12/21/23 14:08 Cholesterol/HDL Ratio 4.48 mg/dL (0.0-4.40) H 12/21/23 14:08 Lipase 15 U/L (13-60) 12/21/23 09:55 Procalcitonin 9.91 ng/mL (0-0.5) H 12/21/23 09:55 TSH 0.85 uIU/mL (0.27-4.20) 12/21/23 14:08 Random Cortisol 20.19 ug/dL (2.47-19.5) H 12/21/23 15:37 Urine Color Dark yellow (Yellow) A 12/21/23 10:36 Urine Appearance Cloudy (CLEAR) A 12/21/23 10:36 Urine pH 5.5 (5-7) 12/21/23 10:36 Ur Specific Gray 1.025 (1.005-1.030) 12/21/23 10:36 Urine Protein 2+ (Negative) A 12/21/23 10:36 Urine Glucose (UA) Negative (Normal) 12/21/23 10:36 Urine Ketones 1+ (Negative) H 12/21/23 10:36 Urine Blood Negative (Negative) 12/21/23 10:36 Urine Nitrate Negative (Negative) 12/21/23 10:36 Urine Bilirubin 1+ (Negative) H 12/21/23 10:36 Urine Urobilinogen 1.0 mg/dL (Negative) 12/21/23 10:36 Ur Leukocyte Esterase Trace (Negative) A 12/21/23 10:36 Urine RBC 0-4 /hpf (0-2) H 12/21/23 10:36 Urine WBC 10-15 /hpf (0-5) H 12/21/23 10:36 Ur Squamous Epith Cells 10-15 /hpf (0-5) H 12/21/23 10:36 Amorphous Sediment Not Reportable 12/21/23 10:36 Urine Bacteria 1+ /hpf (NONE) H 12/21/23 10:36 Hyaline Casts 15-25 /lpf H 12/21/23 10:36 Urine Mucus 2+ /hpf 12/21/23 10:36 Ur Oval Fat Bodies Rare /hpf 12/21/23 10:36 Vancomycin Trough 11.8 ug/mL (10-15) 12/23/23 02:51 Serum Ketones Negative (Negative) 12/21/23 09:55 Hepatitis A IgM Ab Non-reactive (Nonreactive) 12/21/23 09:55 Hep Bs Antigen Non-reactive (Nonreactive) 12/21/23 09:55 Hep B Core IgM Ab Non-reactive (Nonreactive) 12/21/23 09:55 Hepatitis C Antibody Non-reactive (Nonreactive) 12/21/23 09:55 HIV 1&2 Ab & HIV 1 Ag Non-reactive (Non-Reactiv) 12/21/23 09:55 HIV 1&2 Antibody Non-reactive (Non-Reactiv) 12/21/23 09:55 Vitals Last Vital Signs Temp 97.7 F 12/23/23 04:07 Pulse 81 12/23/23 14:00 Resp 18 12/23/23 14:00 BP 115/74 12/23/23 14:00 Pulse Ox 98 12/23/23 12:00 O2 Del Method Room Air 12/23/23 07:52 Discharge Plan Discharge Patient Disposition: Home Condition: Stable Prescriptions: New sodium bicarbonate 650 mg Tablet 650 mg PO TID 2 Days Qty: 6 0RF metronidazole 500 mg tablet 500 mg PO Q8H 14 Days Qty: 42 0RF magnesium L-lactate [Magtab] 84 mg Tablet Extended Release 84 mg PO BID 2 Days Qty: 4 0RF Phospha 250 Neutral 250 mg Tablet 1 tab PO BID 2 Days Qty: 4 0RF potassium chloride [Klor-Con M10] 10 mEq tablet,ER particles/crystals 10 meq PO BID 2 Days Qty: 4 0RF ciprofloxacin HCl 500 mg tablet 500 mg PO BID 14 Days Qty: 28 0RF Continued aripiprazole 2 mg tablet 2 mg PO BEDTIME Qty: 30 2RF Rx Instructions: Take one tablet daily at bedtime duloxetine 60 mg capsule,delayed release(DR/EC) 120 mg PO QAM Qty: 30 5RF atorvastatin 40 mg tablet See Rx Instructions .ROUTE .COMPLEX Qty: 30 5RF Dose Instruction: Take 1 tablet by mouth once daily Rx Instructions: Take 1 tablet by mouth once daily Symbicort 160-4.5 mcg/actuation HFA aerosol inhaler See Rx Instructions .ROUTE .COMPLEX Qty: 11 0RF Dose Instruction: Inhale 2 puffs by mouth twice daily Rx Instructions: Inhale 2 puffs by mouth twice daily omeprazole 40 mg capsule,delayed release(DR/EC) 40 mg PO DAILY Qty: 90 0RF trazodone 100 mg tablet See Rx Instructions .ROUTE .COMPLEX Qty: 90 0RF Dose Instruction: TAKE 3 TABLETS BY MOUTH AT BEDTIME NEEDED FOR SLEEP Rx Instructions: TAKE 3 TABLETS BY MOUTH AT BEDTIME NEEDED FOR SLEEP aspirin 81 mg tablet,delayed release (DR/EC) 81 mg PO DAILY albuterol sulfate 90 mcg/actuation HFA aerosol inhaler 2 puff inhalation Q6H PRN (Reason: Shortness Of Breath Or Wheezing) cyclobenzaprine 5 mg tablet 5 mg PO TID PRN (Reason: Muscle Spasm) Held losartan 25 mg tablet 25 mg PO DAILY Qty: 90 1RF Hold Instructions: Resume on 01/06/24. hold for 2 weeks Discontinued ibuprofen 800 mg tablet 800 mg PO TID PRN (Reason: pain) 10 Days Qty: 30 0RF Discharge Orders: Discharge Order (Routine); Ordered 12/23/23 Ordered By: Erasmo Ramírez Referrals: El Wong MD [Physician] - 2 weeks Gabino Henderson MD [Primary Care Provider] - 1-3 days Discharge Diet: GI Soft Discharge Activity: Resume usual activity Patient Instructions: Low Fiber Diet (ED), Low Fiber Diet (DC), Diverticulitis Diet (ED), Diverticulitis Diet (DC), Low Fiber Diet Plan, Opioid Safety Activity Restrictions/Additional Instructions: - We will discharge you on a GI soft low fiber diet for the next 2 to 4 weeks -Once her abdominal pain has resolved, switch to high-fiber diet within about 4 weeks -Avoid NSAIDs, avoid blood thinners -If you have recurrent abdominal pain, lack of stooling, please present to the emergency room immediately -Please hydrate well drink plenty of electrolyte balanced fluids -Follow-up with primary care provider 1 to 3 days -Follow-up with Dr. Wong in 2 weeks Discharge Attestations Time Spent in Discharge Care*: greater than 30 min Quality Metrics Clinical Quality Measures [ No reported AMI, CVA or VTE this stay] Coding Level of Care Code 90686 Total time (in minutes) for Discharge: 45 Diagnoses Diverticulitis K57.92
--- NOTE | 2023-12-23 14:49 | PC.NURSE ---
report called and transfered upstairs
--- NOTE | 2023-12-23 15:48 | PC.NURSE ---
ij removed whole intact and piid left arm removed ,, has been up ambulated in [place]
== END 2023-12-23 16:00 | disposition home or self-care (01) | DRG 871 ==
LOC: ER 11:12 → ICU 13:45
PROVIDERS: Student in an Organized Health Care Education/Training Program; Admitting Provider Family Medicine; Emergency Provider Family Medicine; PCP Family Medicine; Visit Provider Family Medicine
DX: A41.9 Sepsis, unspecified organism (principal); R65.21 Severe sepsis with septic shock; N39.0 Urinary tract infection, site not specified; K57.20 Diverticulitis of large intestine with perforation and abscess without bleeding; F17.200 Nicotine dependence, unspecified, uncomplicated; I10 Essential (primary) hypertension; F32.9 Major depressive disorder, single episode, unspecified; G47.33 Obstructive sleep apnea (adult) (pediatric); M50.30 Other cervical disc degeneration, unspecified cervical region; F41.9 Anxiety disorder, unspecified; E78.5 Hyperlipidemia, unspecified; G89.29 Other chronic pain; M54.50 Low back pain, unspecified; H35.30 Unspecified macular degeneration; K59.00 Constipation, unspecified; J44.9 Chronic obstructive pulmonary disease, unspecified; Z79.82 Long term (current) use of aspirin; Z95.2 Presence of prosthetic heart valve
CPT/HCPCS: 36415; 36416; 36592; 36600; 71045; 74018; 74176; 80048; 80053; 80061; 80074; 80202; 81001; 82009; 82533; 82803; 82962; 83036; 83605; 83690; 83735; 83880; 84100; 84145; 84443; 84484; 85025; 85610; 86140; 87040; 87806; 93005; 93306; 94664; 96365; 96366; 96367; 96372; 96376; 99285; J1650; J2270; J2405; J2470; J2543; J3370; J3372; J3480; J7030; J7042

== ENCOUNTER 2024-01-03 09:46 | Emergency (ER) | payer MEDICAID, SELFPAY ==
[2023-12-25 14:16] VITALS: BP 101/46; BMI 26.2
[2024-01-03 09:51] VITALS: BP 144/55; PULSE 73; TEMP 36.9; O2SAT 99
--- NOTE | 2024-01-03 10:00 | CT_ITS ---
WS: [id number] CT HEAD NONCONTRAST HISTORY: trauma TECHNIQUE: Contiguous axial imaging performed through the brain. Bone and soft tissue windows. Sagitt al and coronal reformats reviewed. All CT scans at [facility] use at least one of these dose optimization techniques: automated exposure control; mA and/or kV adjustment per patient size (includ es targeted exams where dose is matched to clinical indication); or iterative reconstruction. DLP: 1060.98 mGy.cm COMPARISON: None available. No acute intracranial hemorrhage, midline shift or mass effect. Mild atrophy with moderate small vessel ischemic disease. Ventricles: Normal size with no hydrocephalus. Paranasal sinuses: As visualized are clear. Mastoid air cells: Well pneumatized. Calvarium and scalp: No skull fracture. Small superficial scalp hematoma towards the LEFT parietal ve rtex. CT/CT head wo con* [id number] IMPRESSION: 1. No acute intracranial hemorrhage or edema. 2. Mild atrophy with moderate small vessel ischemic disease. 3. Small superficial scalp hematoma over the LEFT parietal vertex.
--- NOTE | 2024-01-03 10:03 | ED_ITS ---
HPI - Head Injury 2 General: Chief complaint: Head Injury Stated complaint: Fall Time Seen by Provider: 01/03/24 09:47 History of Present Illness: 63-year-old female presents emergency ro om via EMS she had a ground-level mechanical fall this morning she tripped and fell backwards hitting the back of her head no loss conscious no vomiting she is not on any anticoagulants. She not complaining of any other injury. Associated symptoms: Deny neck pain Related Data Home Medications Medication Instructions Recorded Confirmed albuterol sulfate 90 mcg/actuation 2 puff inhalation Q6H PRN 07/29/23 01/03/24 aerosol inhaler Shortness Of Breath Or Wheezing aspirin 81 mg tablet,delayed 81 mg PO DAILY 07/29/23 01/03/24 release atorvastatin 40 mg tablet 40 mg PO DAILY 01/03/24 01/03/24 budesonide-formoterol HFA 160 2 inh inhalation BID 01/03/24 01/03/24 mcg-4.5 mcg/actuation aerosol inhaler (Symbicort) trazodone 100 mg tablet 300 mg PO BEDTIME sleep 01/03/24 01/03/24 Previous Rx's Medication Instructions Recorded losartan 25 mg tablet 25 mg PO DAILY #90 tabs 09/13/23 aripiprazole 2 mg tablet 2 mg PO BEDTIME #30 tabs 10/03/23 duloxetine 60 mg capsule,delayed 120 mg (2 x 60 mg) PO QAM #30 caps 10/03/23 release omeprazole 40 mg capsule,delayed 40 mg PO DAILY #90 caps 10/18/23 release ciprofloxacin HCl 500 mg tablet 500 mg PO BID 2 weeks #28 tabs 12/23/23 Allergies Allergy/AdvReac Type Severity Reaction Status Date / Time No Known Allergies Allergy Verified 01/03/24 09:59 Review of Systems 2 Const: Denies: fever(s) or chills Card: Denies: chest pain Resp: Denies: dyspnea GI: Denies: abdominal pain : Denies: dysuria, urinary frequency or urinary urgency Musc: Denies: neck pain or back pain Skin/Breast: Denies: rash PFSH ED 2 PFSH: Medical History Infected laceration of skin Acute pain of left knee Psychiatric care ROBERTO (obstructive sleep apnea) DDD (degenerative disc disease), cervical Essential hypertension Asthma COPD (chronic obstructive pulmonary disease) Depression with anxiety Hyperlipidemia Chronic low back pain Macular degeneration Surgical History H/O section S/P AVR (aortic valve replacement) History of open heart surgery Family History Other Alzheimer disease Cancer Social History Smoking and tobacco/nicotine status: current every day tobacco/nicotine user Female Reproductive History: Spontaneous abortions: No Physical Exam 2 Const: COMMON NORMALS: no acute distress GENERAL APPEARANCE: cooperative and comfortable ORIENTATION/CONSCIOUSNESS: Yes awake, Yes oriented to person, Yes oriented to place and Yes oriented to time HENMT: COMMON NORMALS: normocephalic and hearing grossly normal bilaterally HEAD & SCALP: normocephalic OTHER: Abrasion on the scalp with no active bleeding no full-thickness laceration Neck/C-Spine: OTHER: Full range of motion of the neck no pain flexion extension sidebending and rotation without eliciting any pain send C-spine cleared clinically Resp: COMMON NORMALS: normal respiratory effort, No retractions, No use of accessory muscles and clear to auscultation bilaterally AUSCULTATION: clear to auscultation bilaterally Cardio: COMMON NORMALS: regular rate and regular rhythm RATE: regular rate RHYTHM: regular rhythm HEART SOUNDS: Murmur heart sound present systolic Location: left sternal border Intensity: IV/ GI: COMMON NORMALS: Soft to palpation and No hepatosplenomegaly present A USCULTATION: Yes normoactive bowel sounds PALPATION: Yes Soft to palpation, No Tenderness to palpation present (GI), No Guarding due to palpation present (GI) and Yes No hepatosplenomegaly present Extremity: COMMON NORMALS: normal to inspection, capillary refill normal, no clubbing, cyanosis or edema, no calf tenderness and no pedal edema Neuro: SENSORIUM/ORIENTATION: Yes oriented to person, Yes oriented to place and Yes oriented to time Skin: COMMON NORMALS: no rashes or lesions noted GENERAL SKIN EXAM: no rashes or lesions noted Course 2 Vital Signs: Vital signs: Vital Signs Temperature 98.4 F 01/03/24 09:51 Pulse Rate 77 01/03/24 11:00 Blood Pressure 133/72 01/03/24 11:00 Pulse Oximetry 95 01/03/24 11:00 Oxygen Delivery Me thod Room Air 01/03/24 11:00 MDM - Head Injury Medcial Decision Making CT head negative cervical spine cleared clinically. Neurologically no significant deficits. Patient has a small abrasion on the scalp but no active bleeding. Will discharge patient home follow-up primary care as needed Lab Data 01/03/24 10:21 01/03/24 10:[address] 01/03/24 10:00 IMPRESSION: 1. No acute intracranial hemorrhage or edema. 2. Mild atrophy with moderate small vessel ischemic disease. 3. Small superficial scalp hematoma over the LEFT parietal vertex. Laboratory Results WBC 7.98 10^3/uL (3.29-11.43) 01/03/24 10:21 RBC 4.13 10^6/uL (3.85-5.65) 01/03/24 10:21 Hgb 12.10 g/dL (11.27-16.99) 01/03/24 10:21 Hct 39.6 % (36-47) 01/03/24 10:21 MCV 95.9 fl (85-98) 01/03/24 10:21 MCH 29.3 pg (27-33) 01/03/24 10:21 MCHC 30.6 g/dL (30-55) 01/03/24 10:21 RDW 14.2 % (12.1-15.1) 01/03/24 10:21 Plt Count 256 10^3/cmm (157-399) 01/03/24 10:21 MPV 11.4 fL (7.4-10.4) H 01/03/24 10:21 Neut % (Auto) 85.2 % 01/03/24 10:21 Lymph % (Auto) 8.6 % 01/03/24 10:21 [place] % (Auto) 4.4 % 01/03/24 10:21 Eos % (Auto) 0.4 % 01/03/24 10:21 Baso % (Auto) 0.8 % 01/03/24 10:21 Neut # (Auto) 6.80 10^3/uL (1.8-7.7) 01/03/24 10:21 Lymph # (Auto) 0.7 10^3/uL (0.8-4.8) L 01/03/24 10:21 [place] # (Auto) 0.4 10^3/uL (0.2-0.9) 01/03/24 10:21 Eos # (Auto) 0.0 10^3/uL (0.0-0.8) 01/03/24 10:21 Baso # (Auto) 0.1 10^3/uL (0.0-0.1) 01/03/24 10:21 Nucleated RBC % (auto) 0 % 01/03/24 10:21 Nucleated RBCs # 0.0 /100WBC 01/03/24 10:21 Sodium 140 mmol/L (136-145) 01/03/24 10:21 Potassium 4.4 mmol/L (3.5-5.1) 01/03/24 10:21 Chloride 106 mmol/L (98-107) 01/03/24 10:21 Carbon Dioxide 26 mmol/L (22-29) 01/03/24 10:21 Anion Gap 12.4 (5-19) 01/03/24 10:21 BUN 9 mg/dL (8-23) 01/03/24 10:21 Creatinine 0.9 mg/dL (0.5-0.9) 01/03/24 10:21 GFR Calculation 62.8 mL/min (90-130) L 01/03/24 10:21 Glucose 125 mg/dL (65-115) H 01/03/24 10:21 Calculated Osmolality 290 mOsm/kg (285-295) 01/03/24 10:21 Calcium 8.5 mg/dL (8.5-10.5) 01/03/24 10:21 Total Bilirubin 0.2 mg/dL (0.15-1.2) 01/03/24 10:21 AST 20 U/L (0-32) 01/03/24 10:21 ALT 13 U/L (0-33) 01/03/24 10:21 Alkaline Phosphatase 76 U/L (35-105) 01/03/24 10:21 Total Protein 6.3 g/dL (6.6-8.7) L 01/03/24 10:21 Albumin 3.5 g/dL (3.5-5.2) 01/03/24 10:21 Globulin 2.8 g/dL (1.3-4.6) 01/03/24 10:21 All radiology interpretation(s) finalized by discharge Discharge Plan Discharge Patient Disposition: Home Clinical Impression: Fall, Closed head injury Condition: Stable Prescriptions: No Action aripiprazole 2 mg tablet 2 mg PO BEDTIME Qty: 30 2RF Rx Instructions: Take one tablet daily at bedtime duloxetine 60 mg capsule,delayed release(DR/EC) 120 mg PO QAM Qty: 30 5RF losartan 25 mg tablet 25 mg PO DAILY Qty: 90 1RF Hold Instructions: Resume on 01/06/24. hold for 2 weeks omeprazole 40 mg capsule,delayed release(DR/EC) 40 mg PO DAILY Qty: 90 0RF aspirin 81 mg tablet,delayed release (DR/EC) 81 mg PO DAILY albuterol sulfate 90 mcg/actuation HFA aerosol inhaler 2 puff inhalation Q6H PRN (Reason: Shortness Of Breath Or Wheezing) ciprofloxacin HCl 500 mg tablet 500 mg PO BID 14 Days Qty: 28 0RF atorvastatin 40 mg tablet 40 mg PO DAILY trazodone 100 mg tablet 300 mg PO BEDTIME budesonide-formoterol [Symbicort] 160-4.5 mcg/actuation HFA aerosol inhaler 2 inh inhalation BID Discharge Orders: Discharge ED (Routine); Ordered 01/03/24 Ordered By: Jared Hernandez Referrals: Gabino Henderson MD [Primary Care Provider] - Discharge Diet: Usual diet Discharge Activity: Increase activity as tolerated Patient Instructions: Opioid Safety, Pain Management Activity Restrictions/Additional Instructions: Thank you for choosing [facility] for your healthcare needs today. It is very important that you follow up as instructed or that you return to the Emergency Department should you have concerns or if your condition changes or worsens in any way. You were seen in the emergency room after a fall. CT of the head was negative for any acute intracranial injury. You likely have headaches and neck supple days you can use Tylenol or Profen as needed Coding Level of Care Code ED Marketing Operations Consultant for Ysabel Beverly
[2024-01-03 10:29] VITALS: BP 121/76; PULSE 75; O2SAT 95
[2024-01-03 10:42] LABS: Basophils # 0.1 10^3/uL (0.0-0.1); Basophils % 0.8 %; Eosinophils % 0.4 %; Hematocrit 39.6 % (36-47); Lymphocytes # 0.7 10^3/uL (0.8-4.8); Lymphocytes % 8.6 %; Mean Corpuscular HGB Conc 30.6 g/dL (30-55); Mean Corpuscular Hemoglobin 29.3 pg (27-33); Mean Corpuscular Volume 95.9 fl (85-98); Mean Platelet Volume 11.4 fL (7.4-10.4); Monocytes # 0.4 10^3/uL (0.2-0.9); Monocytes % 4.4 %; Neutrophils % 85.2 %; Nucleated Red Blood Cells % 0 %; Platelet Count 256 10^3/cmm (157-399); Red Blood Count 4.13 10^6/uL (3.85-5.65); Red Cell Distribution Width 14.2 % (12.1-15.1); White Blood Count 7.98 10^3/uL (3.29-11.43)
[2024-01-03 11:00] VITALS: BP 133/72; PULSE 77; O2SAT 95
[2024-01-03 11:03] LABS: Alanine Aminotransferase 13 U/L (0-33); Albumin Level 3.5 g/dL (3.5-5.2); Alkaline Phosphatase 76 U/L (35-105); Anion Gap 12.4 (5-19); Aspartate Amino Transferase 20 U/L (0-32); Blood Urea Nitrogen 9 mg/dL (8-23); Calcium 8.5 mg/dL (8.5-10.5); Carbon Dioxide 26 mmol/L (22-29); Chloride 106 mmol/L (98-107); Creatinine Clr Calc Pharmacy 48.9911; Globulin 2.8 g/dL (1.3-4.6); Glomerular Filtration Rate 62.8 mL/min (90-130); Glucose 125 mg/dL (65-115); Osmolality Calculated 290 mOsm/kg (285-295); Potassium 4.4 mmol/L (3.5-5.1); Sodium 140 mmol/L (136-145); Total Bilirubin 0.2 mg/dL (0.15-1.2); Total Protein 6.3 g/dL (6.6-8.7)
[2024-01-03 12:00] VITALS: BP 140/62; PULSE 73; O2SAT 97
[2024-01-03 12:48] VITALS: BP 135/60; PULSE 77; O2SAT 97
== END 2024-01-03 12:50 | disposition home or self-care (01) ==
PROVIDERS: Emergency Provider Family Medicine; PCP Family Medicine
DX: S00.01XA Abrasion of scalp, initial encounter (principal); Z79.82 Long term (current) use of aspirin; Z72.0 Tobacco use; I10 Essential (primary) hypertension; J44.9 Chronic obstructive pulmonary disease, unspecified; E78.5 Hyperlipidemia, unspecified; H35.30 Unspecified macular degeneration; W01.0XXA Fall on same level from slipping, tripping and stumbling without subsequent striking against object, initial encounter
CPT/HCPCS: 36415; 70450; 80053; 85025; 99284

== ENCOUNTER → 2024-02-01 09:05 | Outpatient (BNVA) | payer MEDICAID, SELFPAY ==
[2023-12-25 14:16] VITALS: BP 101/46; BMI 26.2
== END ==
PROVIDERS: PCP Family Medicine; Visit Provider Family Medicine
DX: R30.0 Dysuria (principal)
CPT/HCPCS: 81000

== ENCOUNTER 2024-03-11 19:47 | Emergency (ER) | payer MEDICAID, SELFPAY ==
[2023-12-25 14:16] VITALS: BP 101/46; BMI 26.2
[2024-03-11 20:25] VITALS: BP 116/45; PULSE 78; RESP 14; TEMP 36.7; O2SAT 97
[2024-03-11 20:33] LABS: Basophils # 0.1 10^3/uL (0.0-0.1); Basophils % 0.8 %; Eosinophils # 0.1 10^3/uL (0.0-0.8); Eosinophils % 1.9 %; Hematocrit 39.4 % (36-47); Lymphocytes # 1.9 10^3/uL (0.8-4.8); Lymphocytes % 25.2 %; Mean Corpuscular Hemoglobin 29.3 pg (27-33); Mean Corpuscular Volume 94.7 fl (85-98); Mean Platelet Volume 11.5 fL (7.4-10.4); Monocytes # 0.5 10^3/uL (0.2-0.9); Monocytes % 6.8 %; Neutrophils # 4.77 10^3/uL (1.8-7.7); Nucleated Red Blood Cells % 0 %; Platelet Count 153 10^3/cmm (157-399); Red Blood Count 4.16 10^6/uL (3.85-5.65); Red Cell Distribution Width 16.2 % (12.1-15.1); White Blood Count 7.34 10^3/uL (3.29-11.43)
[2024-03-11 20:46] LABS: Alanine Aminotransferase 18 U/L (0-33); Albumin Level 3.9 g/dL (3.5-5.2); Alkaline Phosphatase 111 U/L (35-105); Anion Gap 15.2 (5-19); Aspartate Amino Transferase 24 U/L (0-32); Blood Urea Nitrogen 10 mg/dL (8-23); Calcium 9.5 mg/dL (8.5-10.5); Carbon Dioxide 25 mmol/L (22-29); Chloride 105 mmol/L (98-107); Creatinine Clr Calc Pharmacy 53.3078; Glucose 88 mg/dL (65-115); Osmolality Calculated 290 mOsm/kg (285-295); Potassium 4.2 mmol/L (3.5-5.1); Sodium 141 mmol/L (136-145); Total Bilirubin 0.3 mg/dL (0.15-1.2); Total Protein 6.9 g/dL (6.6-8.7)
[2024-03-11 20:50] VITALS: BP 128/57; PULSE 78; RESP 16; O2SAT 99
[2024-03-11 20:50] LABS: Bilirubin Urine Negative (Negative); Blood Urine Negative (Negative); Glucose Urine UA Negative (Normal); Ketones Urine Negative (Negative); Leukocyte Esterase Urine Negative (Negative); Nitrate Urine Negative (Negative); Protein Urine Negative (Negative); Specific Gravity, Urine 1.004 (1.005-1.030); Urine Appearance Clear (CLEAR); Urine Color Yellow (Yellow); Urobilinogen Urine 0.2 mg/dL (Negative)
[2024-03-11 20:52] LABS: Add Urine Microscopic? YES; Bacteria Urine None Seen /hpf; Hyaline Casts Urine 0-4 /lpf; RBC Urine 0-2 /hpf (0-2); Squamous Epithelial Cell Urine 0-5 /hpf (0-5); WBC Urine 0-5 /hpf (0-5)
[2024-03-11 21:02] VITALS: BP 122/58; PULSE 68; RESP 16; O2SAT 96
--- NOTE | 2024-03-11 21:11 | ED_ITS ---
HPI - Female Genitourinary 2 General: Chief complaint: Urogenital-Female Stated complaint: possible UTI, left side pain Time Seen by Provider: 03/11/24 20:06 Source: patient Mode of arrival: ambulatory Limitations: no limitations History of Present Illness: Patient is a 63-year-old female who presents the emergency department complaining of left lower back pain over the past few days. She states he was recently treated for UTI with antibiotics, and initially this resolved but states she is still having urinary symptoms. Denies any fever, nausea/vomiting, abdominal pain, or other concerning symptoms at this time. Her vitals are normal, she is afebrile. MD elicited complaint: dysuria and UTI Onset (ago): day(s) Location of symptoms: low back Severity: mild Female Urogenital Radiation: Non-Radiating Quality of pain: aching Consistency: constant Vaginal discharge: none Vaginal bleeding: none Associated symptoms: Deny abdominal pain, headache(s) or nausea Related Data Home Medications Medication Instructions Recorded Confirmed aspirin 81 mg tablet,delayed 81 mg PO DAILY 07/29/23 02/08/24 release atorvastatin 40 mg tablet 40 mg PO DAILY 01/03/24 02/08/24 Previous Rx's Medication Instructions Recorded losartan 25 mg tablet 25 mg PO DAILY #90 tabs 09/13/23 omeprazole 40 mg capsule,delayed 40 mg PO DAILY #90 caps 10/18/23 release aripiprazole 2 mg tablet 2 mg PO BEDTIME #30 tabs 01/08/24 duloxetine 60 mg capsule,delayed 60 mg PO .q am #30 caps 01/08/24 release trazodone 150 mg tablet 150 mg PO .q hs PRN sleep #30 tabs 01/08/24 albuterol sulfate 90 mcg/actuation 2 puff inhalation Q6H PRN 02/01/24 aerosol inhaler Shortness Of Breath Or Wheezing #8.5 grams budesonide-formoterol HFA 160 2 inh inhalation BID #10.2 grams 02/01/24 mcg-4.5 mcg/actuation aerosol inhaler (Symbicort) rollaid with seat #1 ea 02/01/24 Allergies Allergy/AdvReac Type Severity Reaction Status Date / Time No Known Allergies Allergy Verified 03/11/24 20:28 Review of Systems 2 General: Reports: 10 or more systems reviewed and unremarkable except in HPI and below Const: Denies: fever(s), chills, change in appetite, change in weight or diaphoresis ENMT: Denies: throat pain or hoarseness Card: Denies: chest pain, palpitations or lightheadedness Resp: Denies: dyspnea, productive cough or wheezing GI: Denies: abdominal pain, nausea, vomiting, diarrhea, constipation, bloating, change in stool character or hematochezia : Reports: dysuria; Denies: flank pain, difficulty voiding, urinary frequency, urinary urgency or hematuria Musc: Reports: back pain; Denies: neck pain Skin/Breast: Denies: rash or new lesions Neuro: Denies: headache(s) or dizziness PFSH ED 2 PFSH: Medical History Infected laceration of skin Acute pain of left knee Psychiatric care ROBERTO (obstructive sleep apnea) DDD (degenerative disc disease), cervical Essential hypertension Asthma COPD (chronic obstructive pulmonary disease) Depression with anxiety Hyperlipidemia Chronic low back pain Macular degeneration Surgical History H/O section S/P AVR (aortic valve replacement) History of open heart surgery Family History Other Alzheimer disease Cancer Social History Smoking and tobacco/nicotine status: current every day tobacco/nicotine user Female Reproductive History: Spontaneous abortions: No Physical Exam 2 Const: COMMON NORMALS: no acute distress, average body habitus, patient oriented x3, no limitations, healthy appearing, alert and well nourished G ENERAL APPEARANCE: cooperative and comfortable ORIENTATION/CONSCIOUSNESS: Yes awake Neck/C-Spine: COMMON NORMALS: full ROM, supple, no meningeal signs and no JVD Resp: COMMON NORMALS: normal respiratory effort, No retractions, No use of accessory muscles and clear to auscultation bilaterally AUSCULTATION: clear to auscultation bilaterally, no crackles, no rales, no rhonchi and no wheezes Cardio: COMMON NORMALS: no JVD, regular rate, regular rhythm, S1 normal heart sound present, S2 normal heart sound present, No gallops present (Cardio), No clicks present (Cardio), No murmurs present (Cardio), No rub (Cardio) and Peripheral pulses 2+ throughout RATE: regular rate RHYTHM: regular rhythm HEART SOUNDS: S1 normal heart sound present and S2 normal heart sound present PERIPHERAL PULSES: Peripheral pulses 2+ throughout GI: COMMON NORMALS: Normal to inspection, nondistended, normoactive bowel sounds present, Soft to palpation, non-tender, No hepatosplenomegaly present and no masses AUSCULTATION: Yes normoactive bowel sounds PALPATION: Yes Soft to palpation, No Guarding due to palpation present (GI), No Rigid due to palpation and Yes No hepatosplenomegaly present RECTAL EXAM: deferred : COMMON NORMALS: Yes no CVA tenderness BLADDER/KIDNEY EXAM: Yes no CVA tenderness Back/Pelvis: COMMON NORMALS: no CVA tenderness OTHER: Easily reproducible tenderness to palpation to the left lower back. No rash. Lumbar spine normal and nontender to palpation. Extremity: COMMON NORMALS: normal to inspection and full ROM Neuro: COMMON NORMALS: patient oriented x3, moves all extremities, no focal motor deficits and no sensory deficits noted SENSORIUM/ORIENTATION: Yes alert MENINGEAL SIGNS: Yes no meningeal signs Psych: COMMON NORMALS: mental status grossly normal, cooperative and speech normal SPEECH: Yes normal speech Skin: COMMON NORMALS: no rashes or lesions noted GENERAL SKIN EXAM: no rashes or lesions noted Course 2 Vital Signs: Vital signs: Vital Signs Temperature 98.1 F 03/11/24 20:25 Pulse Rate 68 03/11/24 21:02 Respiratory Rate 16 03/11/24 21:02 Blood Pressure 122/58 03/11/24 21:02 Pulse Oximetry 96 03/11/24 21:02 Oxygen Delivery Me thod Room Air 03/11/24 20:50 MDM - Female Medical Decision Making This patient presented stating she was having symptoms consistent with prior UTI, though she appeared comfortable on exam and overall physical exam unremarkable aside from some easily reproducible tenderness to palpation to the left lower back. All of her lab work was completely normal, and urinalysis had 0 signs of an infection. Likely this is a low back strain will have the patient treat conservatively as she has not taken any medications yet. Encouraged her to follow-up with primary care and return with any new or concerning symptoms. There is no rash on physical exam to make me think of a zoster infection. No blood in the urine to make me think of ureterolithiasis or other acute urological findings. No infection on her blood work, kidney function normal. Vitals have been stable. Lab Data 03/11/24 20:19 03/11/24 20:19 Laboratory Results WBC 7.34 10^3/uL (3.29-11.43) 03/11/24 20:19 RBC 4.16 10^6/uL (3.85-5.65) 03/11/24 20:19 Hgb 12.20 g/dL (11.27-16.99) 03/11/24 20:19 Hct 39.4 % (36-47) 03/11/24 20:19 MCV 94.7 fl (85-98) 03/11/24 20:19 MCH 29.3 pg (27-33) 03/11/24 20:19 MCHC 31.0 g/dL (30-55) 03/11/24 20:19 RDW 16.2 % (12.1-15.1) H 03/11/24 20:19 Plt Count 153 10^3/cmm (157-399) L 03/11/24 20:19 MPV 11.5 fL (7.4-10.4) H 03/11/24 20:19 Neut % (Auto) 65.0 % 03/11/24 20:19 Lymph % (Auto) 25.2 % 03/11/24 20:19 [place] % (Auto) 6.8 % 03/11/24 20:19 Eos % (Auto) 1.9 % 03/11/24 20:19 Baso % (Auto) 0.8 % 03/11/24 20:19 Neut # (Auto) 4.77 10^3/uL (1.8-7.7) 03/11/24 20:19 Lymph # (Auto) 1.9 10^3/uL (0.8-4.8) 03/11/24 20:19 [place] # (Auto) 0.5 10^3/uL (0.2-0.9) 03/11/24 20:19 Eos # (Auto) 0.1 10^3/uL (0.0-0.8) 03/11/24 20:19 Baso # (Auto) 0.1 10^3/uL (0.0-0.1) 03/11/24 20:19 Nucleated RBC % (auto) 0 % 03/11/24 20:19 Nucleated RBCs # 0.0 /100WBC 03/11/24 20:19 Sodium 141 mmol/L (136-145) 03/11/24 20:19 Potassium 4.2 mmol/L (3.5-5.1) 03/11/24 20:19 Chloride 105 mmol/L (98-107) 03/11/24 20:19 Carbon Dioxide 25 mmol/L (22-29) 03/11/24 20:19 Anion Gap 15.2 (5-19) 03/11/24 20:19 BUN 10 mg/dL (8-23) 03/11/24 20:19 Creatinine 0.7 mg/dL (0.5-0.9) 03/11/24 20:19 GFR Calculation 84.0 mL/min (90-130) L 03/11/24 20:19 Glucose 88 mg/dL (65-115) 03/11/24 20:19 Calculated Osmolality 290 mOsm/kg (285-295) 03/11/24 20:19 Calcium 9.5 mg/dL (8.5-10.5) 03/11/24 20:19 Total Bilirubin 0.3 mg/dL (0.15-1.2) 03/11/24 20:19 AST 24 U/L (0-32) 03/11/24 20:19 ALT 18 U/L (0-33) 03/11/24 20:19 Alkaline Phosphatase 111 U/L (35-105) H 03/11/24 20:19 Total Protein 6.9 g/dL (6.6-8.7) 03/11/24 20:19 Albumin 3.9 g/dL (3.5-5.2) 03/11/24 20:19 Globulin 3.0 g/dL (1.3-4.6) 03/11/24 20:19 Urine Color Yellow (Yellow) 03/11/24 20:43 Urine Appearance Clear (CLEAR) 03/11/24 20:43 Urine pH 7.0 (5-7) 03/11/24 20:43 Ur Specific [place] 1.004 (1.005-1.030) L 03/11/24 20:43 Urine Protein Negative (Negative) 03/11/24 20:43 Urine Glucose (UA) Negative (Normal) 03/11/24 20:43 Urine Ketones Negative (Negative) 03/11/24 20:43 Urine Blood Negative (Negative) 03/11/24 20:43 Urine Nitrate Negative (Negative) 03/11/24 20:43 Urine Bilirubin Negative (Negative) 03/11/24 20:43 Urine Urobilinogen 0.2 mg/dL (Negative) 03/11/24 20:43 Ur Leukocyte Esterase Negative (Negative) 03/11/24 20:43 Urine RBC 0-2 /hpf (0-2) 03/11/24 20:43 Urine WBC 0-5 /hpf (0-5) 03/11/24 20:43 Ur Squamous Epith Cells 0-5 /hpf (0-5) 03/11/24 20:43 Amorphous Sediment Not Reportable 03/11/24 20:43 Urine Bacteria None seen /hpf (NONE) 03/11/24 20:43 Hyaline Casts 0-4 /lpf H 03/11/24 20:43 No radiology studies performed this visit Discharge Plan Discharge Patient Disposition: Home Clinical Impression: Low back strain Condition: Stable Prescriptions: No Action losartan 25 mg tablet 25 mg PO DAILY Qty: 90 1RF Hold Instructions: Resume on 01/06/24. hold for 2 weeks trazodone 150 mg tablet 150 mg PO .q hs PRN (Reason: sleep) Qty: 30 1RF Rx Instructions: Take one tablet at bedtime, if needed, for sleep; stop other doses of this med aripiprazole 2 mg tablet 2 mg PO BEDTIME Qty: 30 1RF Rx Instructions: Take one tablet daily at bedtime duloxetine 60 mg capsule,delayed release(DR/EC) 60 mg PO .q am Qty: 30 1RF Rx Instructions: Take one capsule by mouth every morning (DME) rollaid with seat See Rx Instructions .Route .MEDSUPPLY Qty: 1 0RF Rx Instructions: As directed budesonide-formoterol [Symbicort] 160-4.5 mcg/actuation HFA aerosol inhaler 2 inh inhalation BID Qty: 10.2 1RF albuterol sulfate 90 mcg/actuation HFA aerosol inhaler 2 puff inhalation Q6H PRN (Reason: Shortness Of Breath Or Wheezing) Qty: 8.5 1RF omeprazole 40 mg capsule,delayed release(DR/EC) 40 mg PO DAILY Qty: 90 0RF aspirin 81 mg tablet,delayed release (DR/EC) 81 mg PO DAILY atorvastatin 40 mg tablet 40 mg PO DAILY Discharge Orders: Discharge ED (Routine); Ordered 03/11/24 Ordered By: Teodoro Pabon Referrals: Gabino Henderson MD [Primary Care Provider] - Patient Instructions: Back Pain (ED) Activity Restrictions/Additional Instructions: Make sure to drink plenty of fluids. Follow-up with your primary care provider. Ibuprofen/Tylenol for your back pain. Return with any new or concerning symptoms. Coding Level of Care Code ED Medical Imaging Director for Ysabel Beverly
[2024-03-11] MEDS: ketorolac 60 mg/2 mL INJ IM (21:16)
[2024-03-11 21:21] VITALS: BP 115/75; PULSE 78; RESP 16; O2SAT 97
== END 2024-03-11 21:24 | disposition home or self-care (01) ==
PROVIDERS: Emergency Medicine; Emergency Provider Physician Assistant; PCP Family Medicine
DX: S39.012A Strain of muscle, fascia and tendon of lower back, initial encounter (principal); Z79.82 Long term (current) use of aspirin; Z72.0 Tobacco use; J44.9 Chronic obstructive pulmonary disease, unspecified; E78.5 Hyperlipidemia, unspecified; I10 Essential (primary) hypertension; X58.XXXA Exposure to other specified factors, initial encounter
CPT/HCPCS: 36415; 80053; 81001; 85025; 96372; 99284; J1885

== ENCOUNTER → 2024-03-21 14:09 | Outpatient (BNVA) | payer MEDICAID, SELFPAY ==
[2023-12-25 14:16] VITALS: BP 101/46; BMI 26.2
== END ==
PROVIDERS: PCP Family Medicine; Visit Provider Internal Medicine
DX: Z95.2 Presence of prosthetic heart valve (principal); I10 Essential (primary) hypertension; E78.2 Mixed hyperlipidemia; F17.200 Nicotine dependence, unspecified, uncomplicated
CPT/HCPCS: 99214

== ENCOUNTER 2024-05-23 13:34 | Outpatient (CLI) | payer MEDICAID, SELFPAY ==
[2023-12-25 14:16] VITALS: BP 101/46; BMI 26.2
--- NOTE | 2024-05-23 13:41 | XR_ITS ---
WS: [id number] DEXA (DUAL ENERGY X-RAY ABSORPTIOMETRY) Bone mineral density was performed using a [employer] machine. HISTORY: POSTMENOPAUSAL COMPARISON: None available. Lumbar spine BMD (L1-L4): 1.057 g/cm2 T score: -1.0 Z score: 1.0 Total hip BMD: Left: 0.830 g/cm2. T score: -1.4 Z score: 0.1 Right: 0.852 g/cm2. T score: -1.2 Z score: 0.3 10 year probability of a major osteoporotic fracture is 21.3%. XR/XR DEXA axial skeleton* [id number] IMPRESSION: OSTEOPENIA based upon the WHO classification for females.
--- NOTE | 2024-05-23 13:41 | MM_ITS ---
WS: [id number] BILATERAL SCREENING DIGITAL TOMOSYNTHESIS MAMMOGRAM WITH CAD HISTORY: SCREENING COMPARISON: None available. Bilateral CC and MLO views with tomosynthesis and synthetic mammography submitted. Computer aided detection analyzed. Breast composition: There are scattered areas of fibroglandular density. No suspicious masses, microcalcifications or architectural distortion. Benign calcification anterior medial LEFT breast. MM/MM scr BI tomosynthesis [id number] IMPRESSION: BI-RADS: 2 - Benign. FOLLOW UP: 1 Year Follow-up
== END 2024-05-23 13:35 | disposition home or self-care (01) ==
LOC: RAD 13:36
PROVIDERS: Visit Provider Family Medicine
DX: Z12.31 Encounter for screening mammogram for malignant neoplasm of breast (principal); Z78.0 Asymptomatic menopausal state; R92.323 Mammographic fibroglandular density, bilateral breasts; R92.1 Mammographic calcification found on diagnostic imaging of breast; M85.80 Other specified disorders of bone density and structure, unspecified site
CPT/HCPCS: 77063; 77067; 77080

== ENCOUNTER 2024-05-28 14:03 | Outpatient (CLI) | payer MEDICAID, SELFPAY ==
[2023-12-25 14:16] VITALS: BP 101/46; BMI 26.2
--- NOTE | 2024-05-28 14:05 | MR_ITS ---
WS: [id number] MRI LUMBAR SPINE NONCONTRAST HISTORY: LEG WEAKNESS, RIGHT/CHRONIC BACK PAIN COMPARISON: 12/24/2020 TECHNIQUE: Sagittal and axial multisequence imaging is submitted. Mild cervical degenerative disc disease. There are few small disc protrusions throughout the thoracic spine. No cord compression. Mild curvature lumbar spine. Posterior alignment is normal. No fractures or marrow edema. Disc spaces and vertebral body heights are well-preserved. Conus terminates normally at L1-2 disc level. L1-L2: Normal. L2-L3: Small central disc protrusion and disc bulging. Mild facet arthritis. No stenosis. L3-L4: Mild annular disc bulging with effacement of the ventral CSF. Bilateral subarticular recess narrowing LEFT greater than RIGHT. Small LEFT foraminal disc protrusion. No significant stenosis or change. L4-L5: Mild asymmetric disc bulging to the LEFT. Moderate ligamentum flavum and facet arthritis. Small bilateral foraminal disc protrusions. Mild bilateral foraminal stenosis. L5-S1: Mild annular disc bulging and facet and ligamentum flavum hypertrophy. Bilateral foraminal disc protrusions contact the exiting L5 nerve roots. Mild bilateral foraminal stenosis. Slightly greater contact on the RIGHT L5 nerve root. Similar to the prior study. Moderate facet arthritis. Cystic changes in the liver. Hepatic cysts have been previously described. MR/MR lumbar spine wo con* [id number] IMPRESSION: 1. Mild degenerative disc disease and facet arthritis. No significant change s bailey the prior study of 12/24/2020. 2. Mild bilateral foraminal stenosis at L5-S1 with disc contacting the L5 nerv e roots, RIGHT greater than LEFT. 3. Small central disc protrusion at L2-3. 4. Mild bilateral subarticular recess narrowing, LEFT greater than RIGHT. 5. Mild bilateral foraminal stenosis and small foraminal disc protrusions at L 4-5.
== END 2024-05-28 14:04 | disposition home or self-care (01) ==
PROVIDERS: PCP Family Medicine; Visit Provider Family Medicine
DX: R29.898 Other symptoms and signs involving the musculoskeletal system (principal); M47.896 Other spondylosis, lumbar region; M48.07 Spinal stenosis, lumbosacral region; R93.7 Abnormal findings on diagnostic imaging of other parts of musculoskeletal system; M51.26 Other intervertebral disc displacement, lumbar region; M50.30 Other cervical disc degeneration, unspecified cervical region; M51.24 Other intervertebral disc displacement, thoracic region; M43.8X6 Other specified deforming dorsopathies, lumbar region; M51.369 Other intervertebral disc degeneration, lumbar region without mention of lumbar back pain or lower extremity pain; M24.28 Disorder of ligament, vertebrae; M51.379 Other intervertebral disc degeneration, lumbosacral region without mention of lumbar back pain or lower extremity pain; M51.27 Other intervertebral disc displacement, lumbosacral region; M47.897 Other spondylosis, lumbosacral region; R93.2 Abnormal findings on diagnostic imaging of liver and biliary tract
CPT/HCPCS: 72148

== ENCOUNTER 2024-05-28 20:00 | Outpatient (CLI) | payer MEDICAID, SELFPAY ==
[2023-12-25 14:16] VITALS: BP 101/46; BMI 26.2
== END 2024-05-28 20:01 | disposition home or self-care (01) ==
LOC: SLEEP 05-29 05:07
PROVIDERS: PCP Family Medicine; Visit Provider Family Medicine
DX: G47.33 Obstructive sleep apnea (adult) (pediatric) (principal); G47.36 Sleep related hypoventilation in conditions classified elsewhere
CPT/HCPCS: 95810

== ENCOUNTER → 2024-06-06 15:22 | Outpatient (BNVA) | payer MEDICAID, SELFPAY ==
[2023-12-25 14:16] VITALS: BP 101/46; BMI 26.2
== END ==
PROVIDERS: PCP Family Medicine; Visit Provider Orthopaedic Surgery
DX: M54.50 Low back pain, unspecified (principal)
CPT/HCPCS: 72110; 99204

== ENCOUNTER → 2024-06-14 10:51 | Outpatient (BNVA) | payer MEDICAID, SELFPAY ==
[2023-12-25 14:16] VITALS: BP 101/46; BMI 26.2
== END ==
PROVIDERS: Referring Provider Orthopaedic Surgery; Visit Provider Nurse Practitioner Family
DX: M54.50 Low back pain, unspecified (principal)
CPT/HCPCS: 99214

== ENCOUNTER → 2024-07-05 08:35 | Outpatient (BNVA) | payer MEDICAID, SELFPAY ==
[2023-12-25 14:16] VITALS: BP 101/46; BMI 26.2
== END ==
PROVIDERS: PCP Family Medicine; Visit Provider Nurse Practitioner Family
DX: M54.50 Low back pain, unspecified (principal); F17.200 Nicotine dependence, unspecified, uncomplicated
CPT/HCPCS: 99213

== ENCOUNTER 2024-07-11 20:00 | Outpatient (CLI) | payer MEDICAID, SELFPAY ==
[2023-12-25 14:16] VITALS: BP 101/46; BMI 26.2
== END 2024-07-11 20:01 | disposition home or self-care (01) ==
LOC: SLEEP 07-12 05:27
PROVIDERS: Visit Provider Internal Medicine
DX: G47.33 Obstructive sleep apnea (adult) (pediatric) (principal)
CPT/HCPCS: 95811

== ENCOUNTER 2024-08-06 08:08 | Outpatient (CLI) | payer MEDICAID, SELFPAY ==
[2023-12-25 14:16] VITALS: BP 101/46; BMI 26.2
--- NOTE | 2024-08-06 08:12 | CT_ITS ---
WS: [id number] LDCT LUNG CANCER SCREENING TECHNIQUE: Noncontrast CT of the chest with coronal and sagittal reformatted images. CLINICAL INFORMATION: NICOTINE DEPENDENCE,CIGARETTES COMPARISON: 2022 DLP: 45.70 mGy.cm DIvol: Mean CTDIvol: 1.00 (mGy) All CT scans at [facility] use at least one of these dose optimization techniques: automated exposure control; mA and/or kV adjustment per patient size (includes targeted exams where dose is matched to clinical indication); or iterative reconstruction. FINDINGS: Interstitial thickening with reticular opacities similar to previous. No new suspicious pulmonary parenchymal abnormalities. Sternotomy. CABG. aVR. Normal caliber thoracic aorta. No mediastinal or hilar lymphadenopathy. No axillary lymphadenopathy. Numerous hepatic cysts partially visualized. Moderate thoracic kyphosis. CT/CT lung screening [id number] IMPRESSION: LUNG-RADS: 2-Benign Appearance or Behavior FOLLOW UP: 12 Month: Continue annual screening with LDCT
== END 2024-08-06 08:09 | disposition home or self-care (01) ==
LOC: RAD 08:08
PROVIDERS: PCP Family Medicine; Visit Provider Family Medicine
DX: Z12.2 Encounter for screening for malignant neoplasm of respiratory organs (principal); F17.210 Nicotine dependence, cigarettes, uncomplicated; J98.4 Other disorders of lung; Z98.890 Other specified postprocedural states; K76.89 Other specified diseases of liver; M40.294 Other kyphosis, thoracic region
CPT/HCPCS: 71271

== ENCOUNTER → 2024-08-13 08:48 | Outpatient (BNVA) | payer MEDICAID, SELFPAY ==
[2023-12-25 14:16] VITALS: BP 101/46; BMI 26.2
== END ==
PROVIDERS: PCP Family Medicine; Visit Provider Nurse Practitioner Family
DX: M54.50 Low back pain, unspecified (principal)
CPT/HCPCS: 99214

== ENCOUNTER → 2024-09-03 10:35 | Outpatient (BNVA) | payer MEDICAID, SELFPAY ==
[2023-12-25 14:16] VITALS: BP 101/46; BMI 26.2
== END ==
PROVIDERS: PCP Family Medicine; Visit Provider Orthopaedic Surgery
DX: M54.42 Lumbago with sciatica, left side (principal); G89.29 Other chronic pain
CPT/HCPCS: 99213

== ENCOUNTER → 2024-09-10 08:38 | Outpatient (BNVA) | payer MEDICAID, SELFPAY ==
[2023-12-25 14:16] VITALS: BP 101/46; BMI 26.2
== END ==
PROVIDERS: PCP Family Medicine; Visit Provider Nurse Practitioner Family
DX: M54.50 Low back pain, unspecified (principal)
CPT/HCPCS: 99214

== ENCOUNTER → 2024-09-25 10:28 | Outpatient (BNVA) | payer MEDICAID, SELFPAY ==
[2023-12-25 14:16] VITALS: BP 101/46; BMI 26.2
== END ==
PROVIDERS: PCP Family Medicine; Visit Provider Anesthesiology Pain Medicine
DX: M54.16 Radiculopathy, lumbar region (principal); M54.50 Low back pain, unspecified
CPT/HCPCS: 64483; 64484; J1100; J3490; J9999

== ENCOUNTER 2024-09-27 07:27 | Outpatient (CLI) | payer MEDICAID, SELFPAY ==
[2023-12-25 14:16] VITALS: BP 101/46; BMI 26.2
--- NOTE | 2024-09-27 07:45 | USCV_ITS ---
Estephanie Mao Age: 63 Gender: F : 1960 Exam Date: 09/27/2024 08:02 Ordering Phys: Alex Evans M.D ([email or web address]) Technologist: Liam Mckeon Exam Location: [facility] Indication: ao stenosis BP: 100 / 68 HR: 55 Rhythm: Sinus Technical Quality: Adequate MEASUREMENTS (Male / Female) Normal Values 2D ECHO LV Diastolic Diameter PLAX 3.8 cm 4.2 - 5.9 / 3.9 - 5.3 cm IVS Diastolic Thickness 0.9 cm 0.6 - 1.0 / 0.6 - 0.9 cm IVS Systolic Thickness 1.4 cm LVPW Diastolic Thickness 1.4 cm 0.6 - 1.0 / 0.6 - 0.9 cm LVPW Systolic Thickness 1.5 cm LVOT Diameter 2.0 cm LV Ejection Fraction 2D Teich 66.0 % LV Ejection Fraction MOD 4C 74.1 % LV Ejection Fraction MOD 2C 70.0 % LV Ejection Fraction 2C AL 70.3 % LA Diameter 3.5 cm RA Systolic Volume 4C AL 16.8 ml RA Systolic Volume 4C MOD 16.6 ml LA Sys Volume AL 25.3 cm cubed LA Sys Volume Index AL 16.5 cm cubed/m squared Aorta at Sinotubular Diameter 2.1 cm IVC Diameter 1.5 cm M-MODE LA Ao Ratio MM 1.8 AV Cusp Separation MM 0.9 cm DOPPLER AV Peak Velocity 319.0 cm/s LVOT Peak Velocity 88.0 cm/s AV Area Cont Eq vti 0.9 cm squared AV Area Cont Eq pk 0.9 cm squared MV Peak Velocity 146.0 cm/s MV Area PHT 5.0 cm squared Mitral E to A Ratio 0.9 TV Peak Velocity 262.0 cm/s TR Peak Velocity 334.0 cm/s TR Peak Gradient 44.6 mmHg TR Mean Velocity 263.0 cm/s TR Mean Gradient 29.3 mmHg TR Velocity Time Integral 85.3 cm PV Peak Velocity 119.3 cm/s RV Ejection Time 0.3 s FINDINGS Left Ventricle Left ventricle is normal size. LV systolic function is normal with EF of 65-70%. No regional wall motion abnormalities are seen. Right Ventricle Normal in size and function Right Atrium Normal in size Left Atrium Normal in size Mitral Valve Structurally normal mitral valve. Mild mitral regurgitation. Aortic Valve Aortic valve is thickened. Moderate to severe aortic stenosis with aortic valve area of 0.94 cm2 and mean gradient of 25mmHg. Trace aortic regurgitation Tricuspid Valve Insufficient TR jet to calculate RVSP Pulmonic Valve Mild pulmonic regurgitation Pericardium Normal in size Aorta Normal in size IVC Appears to be normal CONCLUSIONS LV systolic function is normal with EF of 65-70%. Mild mitral regurgitation. Moderate to severe aortic stenosis. Trace aortic regurgitation. Mild pulmonic regurgitation Compared to prior echocardiogram from 2023, aortic stenosis appears to have progressed and is moderate to severe. Alex Evans MD (Electronically Signed) Final Date: 02 October 2024 12:40 S
== END 2024-09-27 07:28 | disposition home or self-care (01) ==
LOC: RAD 07:27
PROVIDERS: PCP Family Medicine; Visit Provider Internal Medicine
DX: I35.0 Nonrheumatic aortic (valve) stenosis (principal); I34.0 Nonrheumatic mitral (valve) insufficiency; I35.8 Other nonrheumatic aortic valve disorders; I37.1 Nonrheumatic pulmonary valve insufficiency
CPT/HCPCS: 93306

== ENCOUNTER → 2024-10-09 07:57 | Outpatient (BNVA) | payer MEDICAID, SELFPAY ==
[2023-12-25 14:16] VITALS: BP 101/46; BMI 26.2
== END ==
PROVIDERS: PCP Family Medicine; Visit Provider Nurse Practitioner Family
DX: M54.50 Low back pain, unspecified (principal); M25.521 Pain in right elbow
CPT/HCPCS: 99214

== ENCOUNTER → 2024-10-22 13:11 | Outpatient (BNVA) | payer MEDICAID, SELFPAY ==
[2023-12-25 14:16] VITALS: BP 101/46; BMI 26.2
== END ==
PROVIDERS: PCP Family Medicine; Visit Provider Nurse Practitioner Family
DX: M79.18 Myalgia, other site (principal); M54.50 Low back pain, unspecified; M25.521 Pain in right elbow
CPT/HCPCS: 20553; 99214; J1010; J3490

== ENCOUNTER → 2024-10-23 10:43 | Outpatient (BNVA) | payer MEDICAID, SELFPAY ==
[2023-12-25 14:16] VITALS: BP 101/46; BMI 26.2
== END ==
PROVIDERS: PCP Family Medicine; Visit Provider Nurse Practitioner
DX: M77.11 Lateral epicondylitis, right elbow (principal); Z46.89 Encounter for fitting and adjustment of other specified devices
CPT/HCPCS: 73030; 73080; 99214

== ENCOUNTER 2024-11-25 15:00 | Emergency (ER) | payer MEDICAID, SELFPAY ==
[2023-12-25 14:16] VITALS: BP 101/46; BMI 26.2
--- NOTE | 2024-11-25 15:08 | ECG_ITS ---
[facility] Date: 2024-11-25 Pat Name: Estephanie Mao Department: Room: Gender: Female Founder: : 1960 Requested By: Lisa Mcfarlane Order Number: [id number] Villeda MD: Nikolai Griffin M.D. Measurements Intervals [place] Rate: 66 P: 74 AL: 139 QRS: 51 QRSD: 98 T: 206 QT: 408 QTc: 429 Interpretive Statements SINUS RHYTHM ST DEVIATION AND MODERATE T-WAVE ABNORMALITY, CONSIDER ANTEROLATERAL ISCHEMIA [-0.1+ mV T-WAVE IN V3-V6] ST DEVIATION AND MODERATE T-WAVE ABNORMALITY, CONSIDER INFERIOR ISCHEMIA [-0.1+ mV T-WAVE IN II/aVF] Compared to ECG 12/21/2023 20:35:04 ST DEPRESSION AND T WAVE INVERSIONS HAVE INCREASED Electronically Signed On 11-27-2024 22:59:26 CDT by Nikolai Griffin M.D. [email or web address] [id number]
[2024-11-25 15:10] VITALS: BP 85/30; PULSE 68; RESP 16; TEMP 36.4; O2SAT 100; BMI 25.7
[2024-11-25 15:15] VITALS: BP 85/37; PULSE 68; RESP 16; O2SAT 100
--- NOTE | 2024-11-25 15:19 | W.ED.GENADLT ---
HPI - General Adult General: Chief complaint: General Medical Stated complaint: hypotensive Time Seen by Provider: 11/25/24 15:01 History of Present Illness: 64-year-old female with a history of obstructive sleep apnea, hypertension, asthma/COPD, hyperlipidemia and psychiatric issues who presents emergency room from [facility] with low blood pressure. Says she might of felt a little bit lightheaded but otherwise has felt fine. No fevers. No cough. No altered mental status. Looking back at her vitals in the past, she always runs a little bit low. She reports no fevers. No chest pain. No cough. No altered mental status. No abdominal pain. No nausea vomiting or diarrhea. Says she has been feeling fine however pressure was in the 70s reportedly at the clinic. Here she is in the upper 80s and low 90s initially. Related Data Home Medications ?Medication ?Instructions ?Recorded ?Confirmed aspirin 81 mg tablet,delayed 81 mg PO DAILY 07/29/23 11/25/24 release atorvastatin 40 mg tablet 40 mg PO DAILY 01/03/24 11/25/24 alendronate 70 mg tablet mg PO 09/25/24 11/25/24 Previous Rx's ?Medication ?Instructions ?Recorded losartan 25 mg tablet 25 mg PO DAILY #90 tabs 09/13/23 Held on 12/23/23. Instructions: Resume on 01/06/24. hold for 2 weeks omeprazole 40 mg capsule,delayed 40 mg PO DAILY #90 caps 10/18/23 release rollaid with seat #1 ea 02/01/24 budesonide-formoterol HFA 160 2 inh inhalation BID #10.2 grams 05/31/24 mcg-4.5 mcg/actuation aerosol inhaler (Symbicort) tizanidine 4 mg tablet 4 mg PO BID PRN muscle spasticity 08/13/24 #60 tabs topiramate 25 mg tablet (Topamax) 25 mg PO BID PRN nerve pain #60 08/13/24 tabs Ventolin HFA 90 mcg/actuation See Rx Instructions .Route 10/10/24 aerosol inhaler (albuterol sulfate) .COMPLEX #54 grams right tennis elbow brace #1 ea 10/23/24 celecoxib 100 mg capsule (Celebrex) 100 mg PO BID #180 caps 10/30/24 aripiprazole 2 mg tablet 2 mg PO BEDTIME #30 tabs 11/19/24 duloxetine 60 mg capsule,delayed 60 mg PO .q am #30 caps 11/19/24 release trazodone 150 mg tablet 150 mg PO .q hs PRN sleep #30 tabs 11/19/24 Allergies Allergy/AdvReac Type Severity Reaction Status Date / Time No Known Allergies Allergy Verified 11/25/24 13:47 Review of Systems Narrative: Constitutional symptoms: Negative except as documented in HPI. Skin symptoms: Negative except as documented in HPI. Eye symptoms: Negative except as documented in HPI. ENMT symptoms: Negative except as documented in HPI. Respiratory symptoms: Negative except as documented in HPI. Cardiovascular symptoms: Negative except as documented in HPI. Gastrointestinal symptoms: Negative except as documented in HPI. Genitourinary symptoms: Negative except as documented in HPI. Musculoskeletal symptoms: Negative except as documented in HPI. Neurologic symptoms: Negative except as documented in HPI. Psychiatric symptoms: Negative except as documented in HPI. Endocrine symptoms: Negative except as documented in HPI. [facility] ED PFSH: Medical History (Updated 11/25/24 @ 16:45 by Lisa Larkin MD) Infected laceration of skin Acute pain of left knee Psychiatric care ROBERTO (obstructive sleep apnea) DDD (degenerative disc disease), cervical Essential hypertension Asthma COPD (chronic obstructive pulmonary disease) Depression with anxiety Hyperlipidemia Chronic low back pain Macular degeneration Surgical History H/O section S/P AVR (aortic valve replacement) History of open heart surgery Family History Other Alzheimer disease Cancer Social History Smoking and tobacco/nicotine status: current every day tobacco/nicotine user Female Reproductive History: Spontaneous abortions: No Physical Exam Narrative: EXAM NARRATIVE: General: Alert, no acute distress. Skin: Warm, dry. Head: Normocephalic, atraumatic. Neck: Supple, trachea midline. Eye: Extraocular movements are intact. Ears, nose, mouth and throat: mucosa moist. Cardiovascular: Regular, Normal peripheral perfusion. Respiratory: Lungs are clear to auscultation, respirations are non-labored, breath sounds are equal, Symmetrical chest wall expansion. Gastrointestinal: Soft, Nontender, Non distended Musculoskeletal: Normal ROM, no deformity. Neurological: Alert and oriented, No focal neurological deficit observed. Psychiatric: Cooperative, appropriate mood & affect. Course Vital Signs: Vital signs: Vital Signs Temperature 97.6 F 11/25/24 15:10 Pulse Rate 67 11/25/24 16:05 Respiratory Rate 16 11/25/24 16:05 Blood Pressure 96/57 11/25/24 16:05 Pulse Oximetry 95 11/25/24 16:05 Oxygen Delivery Me thod Room Air 11/25/24 16:05 MDM - General Adult Medical Decision Making Medical decision making: Differential diagnosis for patient presenting with hypotension including but not limited to and based on the above HPI, review of systems and physical exam: Sepsis. Dehydration. Renal failure. Electrolyte abnormalities. Anemia. Congestive heart failure. Hypotension. Coronary syndrome. Hepatitis. Cirrhosis. Infections such as pneumonia, urinary tract infection, [place]ne illness, Cellulitis, Viral infections including influenza and Covid-19. Workup: labwork and lab/exam driven imaging ordered to evaluate, rule in and rule out above pathologies. EKG: Time 1508. Rate 66. Normal sinus rhythm, nonspecific ST wave abnormalities, no ectopy, normal IN & QRS intervals, This was reviewed and interpreted by myself the ER physician at 1512 Lab Review: Laboratory results were reviewed and interpreted by myself the emergency room physician. No leukocytosis. No anemia. She does have a slight elevation in her BUN and creatinine at 22 and 1 over her baseline. Which is normally around 0.7-0.9. I reviewed the patient's medical record. 64-year-old female with a history of obstructive sleep apnea, hypertension, asthma/COPD, hyperlipidemia and psychiatric issues w Looking back at her vitals in the past, she always runs a little bit low Reexamination: Patient remained stable. No increased work of breathing. No altered mental status. No focal motor deficits. Assessment and plan: Dehydration Chronic hypotension ? IV fluids in the emergency room. Patient has remained asymptomatic. - Discharged home - Discussed plan with patient. Answered any questions. - Evaluation and treatment of this problem were appropriate in the emergency setting. Lab Data 11/25/24 14:52 11/25/24 14:52 Laboratory Results WBC 6.00 10^3/uL (3.29-11.43) 11/25/24 14:52 RBC 3.50 10^6/uL (3.85-5.65) L 11/25/24 14:52 Hgb 11.10 g/dL (11.27-16.99) L 11/25/24 14:52 Hct 33.2 % (36-47) L 11/25/24 14:52 MCV 94.9 fl (85-98) 11/25/24 14:52 MCH 31.7 pg (27-33) 11/25/24 14:52 MCHC 33.4 g/dL (30-55) 11/25/24 14:52 RDW 13.7 % (12.1-15.1) 11/25/24 14:52 Plt Count 156 10^3/cmm (157-399) L 11/25/24 14:52 MPV 11.5 fL (7.4-10.4) H 11/25/24 14:52 Neut % (Auto) 69.9 % 11/25/24 14:52 Lymph % (Auto) 21.8 % 11/25/24 14:52 [place] % (Auto) 5.3 % 11/25/24 14:52 Eos % (Auto) 2.0 % 11/25/24 14:52 Baso % (Auto) 0.5 % 11/25/24 14:52 Neut # (Auto) 4.19 10^3/uL (1.8-7.7) 11/25/24 14:52 Lymph # (Auto) 1.3 10^3/uL (0.8-4.8) 11/25/24 14:52 [place] # (Auto) 0.3 10^3/uL (0.2-0.9) 11/25/24 14:52 Eos # (Auto) 0.1 10^3/uL (0.0-0.8) 11/25/24 14:52 Baso # (Auto) 0.0 10^3/uL (0.0-0.1) 11/25/24 14:52 Nucleated RBC % (auto) 0 % 11/25/24 14:52 Nucleated RBCs # 0.0 /100WBC 11/25/24 14:52 Sodium 142 mmol/L (136-145) 11/25/24 14:52 Potassium 3.0 mmol/L (3.5-5.1) L 11/25/24 14:52 Chloride 104 mmol/L (98-107) 11/25/24 14:52 Carbon Dioxide 28 mmol/L (22-29) 11/25/24 14:52 Anion Gap 13.0 (5-19) 11/25/24 14:52 BUN 22 mg/dL (8-23) 11/25/24 14:52 Creatinine 1.0 mg/dL (0.5-0.9) H 11/25/24 14:52 GFR Calculation 55.5 mL/min (90-130) L 11/25/24 14:52 Glucose 109 mg/dL (65-115) 11/25/24 14:52 Calculated Osmolality 298 mOsm/kg (285-295) H 11/25/24 14:52 Lactic Acid 1.4 mmol/L (0.5-2.2) 11/25/24 14:52 Calcium 9.2 mg/dL (8.5-10.5) 11/25/24 14:52 Total Bilirubin 0.3 mg/dL (0.15-1.2) 11/25/24 14:52 AST 15 U/L (0-32) 11/25/24 14:52 ALT 13 U/L (0-33) 11/25/24 14:52 Alkaline Phosphatase 98 U/L (35-105) 11/25/24 14:52 Total Protein 6.5 g/dL (6.6-8.7) L 11/25/24 14:52 Albumin 3.8 g/dL (3.5-5.2) 11/25/24 14:52 Globulin 2.7 g/dL (1.3-4.6) 11/25/24 14:52 Urine Color Yellow (Yellow) 11/25/24 15:45 Urine Appearance Clear (CLEAR) 11/25/24 15:45 Urine pH 7.0 (5-7) 11/25/24 15:45 Ur Specific [place] 1.008 (1.005-1.030) 11/25/24 15:45 Urine Protein Negative (Negative) 11/25/24 15:45 Urine Glucose (UA) Negative (Normal) 11/25/24 15:45 Urine Ketones Negative (Negative) 11/25/24 15:45 Urine Blood Negative (Negative) 11/25/24 15:45 Urine Nitrate Negative (Negative) 11/25/24 15:45 Urine Bilirubin Negative (Negative) 11/25/24 15:45 Urine Urobilinogen 0.2 mg/dL (Negative) 11/25/24 15:45 Ur Leukocyte Esterase Negative (Negative) 11/25/24 15:45 Urine RBC 0-2 /hpf (0-2) 11/25/24 15:45 Urine WBC 0-5 /hpf (0-5) 11/25/24 15:45 Ur Squamous Epith Cells 0-5 /hpf (0-5) 11/25/24 15:45 Amorphous Sediment Not Reportable 11/25/24 15:45 Urine Bacteria None seen /hpf (NONE) 11/25/24 15:45 Hyaline Casts 0-4 /lpf H 11/25/24 15:45 No radiology studies performed this visit Discharge Plan Discharge Patient Disposition: Home Clinical Impression: Dehydration, Chronic hypotension Condition: Stable Prescriptions: No Action tizanidine 4 mg tablet 4 mg PO BID PRN (Reason: muscle spasticity) Qty: 60 0RF topiramate [Topamax] 25 mg tablet 25 mg PO BID PRN (Reason: nerve pain) Qty: 60 3RF losartan 25 mg tablet 25 mg PO DAILY Qty: 90 1RF (DME) rollaid with seat See Rx Instructions .Route .MEDSUPPLY Qty: 1 0RF Rx Instructions: As directed alendronate 70 mg tablet PO (DME) right tennis elbow brace See Rx Instructions .Route .MEDSUPPLY Qty: 1 0RF Rx Instructions: As directed. Order 99 days celecoxib [Celebrex] 100 mg capsule 100 mg PO BID Qty: 180 0RF omeprazole 40 mg capsule,delayed release(DR/EC) 40 mg PO DAILY Qty: 90 0RF budesonide-formoterol [Symbicort] 160-4.5 mcg/actuation HFA aerosol inhaler 2 inh inhalation BID Qty: 10.2 1RF albuterol sulfate [Ventolin HFA] 90 mcg/actuation HFA aerosol inhaler See Rx Instructions .ROUTE .COMPLEX Qty: 54 0RF Dose Instruction: INHALE 2 PUFFS BY MOUTH EVERY 6 HOURS NEEDED FOR SHORTNESS OF BREATH AND FOR WHEEZING Rx Instructions: INHALE 2 PUFFS BY MOUTH EVERY 6 HOURS NEEDED FOR SHORTNESS OF BREATH AND FOR WHEEZING aripiprazole 2 mg tablet 2 mg PO BEDTIME Qty: 30 0RF Rx Instructions: Take one tablet daily at bedtime duloxetine 60 mg capsule,delayed release(DR/EC) 60 mg PO .q am Qty: 30 0RF Rx Instructions: Take one capsule by mouth every morning trazodone 150 mg tablet 150 mg PO .q hs PRN (Reason: sleep) Qty: 30 0RF Rx Instructions: Take one tablet at bedtime, if needed, for sleep aspirin 81 mg tablet,delayed release (DR/EC) 81 mg PO DAILY atorvastatin 40 mg tablet 40 mg PO DAILY Discharge Orders: Discharge ED (Routine); Ordered 11/25/24 Ordered By: Lisa Larkin Referrals: David Espinal MD [Primary Care Provider, Family Practice] Discharge Diet: Usual diet Discharge Activity: Increase activity as tolerated Patient Instructions: Dehydration (ED), Opioid Safety, Pain Management, Patient Portal & Selene Instructions Activity Restrictions/Additional Instructions: Thank you for choosing [facility] for your healthcare needs today. You have been screened and evaluated and felt safe for discharge. Health conditions do change or evolve sometimes and as such it is important that you follow up with your Primary Doctor to be re checked, 3-5 days is a general good time frame for follow up. You are always welcome to return to the ED for re assessment if your symptoms are worsening or you have new concerns Print Language: Tristanian Coding Level of Care Code ED Air Analyst for Ysabel Beverly
[2024-11-25 15:20] LABS: Hematocrit 33.2 % (36-47); Hemoglobin 11.10 g/dL (11.27-16.99); Mean Corpuscular HGB Conc 33.4 g/dL (30-55); Mean Corpuscular Hemoglobin 31.7 pg (27-33); Mean Corpuscular Volume 94.9 fl (85-98); Nucleated Red Blood Cells % 0 %; Platelet Count 156 10^3/cmm (157-399); Red Blood Count 3.50 10^6/uL (3.85-5.65); White Blood Count 6.00 10^3/uL (3.29-11.43)
[2024-11-25 15:29] LABS: Alanine Aminotransferase 13 U/L (0-33); Albumin Level 3.8 g/dL (3.5-5.2); Alkaline Phosphatase 98 U/L (35-105); Anion Gap 13.0 (5-19); Aspartate Amino Transferase 15 U/L (0-32); Blood Urea Nitrogen 22 mg/dL (8-23); Calcium 9.2 mg/dL (8.5-10.5); Carbon Dioxide 28 mmol/L (22-29); Chloride 104 mmol/L (98-107); Creatinine Clr Calc Pharmacy 48.7405; Globulin 2.7 g/dL (1.3-4.6); Glucose 109 mg/dL (65-115); Osmolality Calculated 298 mOsm/kg (285-295); Potassium 3.0 mmol/L (3.5-5.1); Sodium 142 mmol/L (136-145); Total Protein 6.5 g/dL (6.6-8.7)
[2024-11-25 15:30] LABS: Lactic Sepsis W/Reflex 1.4 mmol/L (0.5-2.2)
[2024-11-25 15:50] VITALS: BP 90/60
[2024-11-25 16:05] VITALS: BP 96/57; PULSE 67; RESP 16; O2SAT 95
[2024-11-25 16:13] LABS: Glucose Urine UA Negative (Normal); Nitrate Urine Negative (Negative); Specific Gravity, Urine 1.008 (1.005-1.030)
[2024-11-25 16:51] VITALS: BP 95/49; PULSE 76; RESP 16; O2SAT 99
== END 2024-11-25 16:51 | disposition home or self-care (01) ==
PROVIDERS: Emergency Provider Emergency Medicine; PCP Family Medicine
DX: E86.0 Dehydration (principal); I95.89 Other hypotension; Z79.82 Long term (current) use of aspirin; Z72.0 Tobacco use; E78.5 Hyperlipidemia, unspecified; J44.9 Chronic obstructive pulmonary disease, unspecified; I10 Essential (primary) hypertension
CPT/HCPCS: 36415; 80053; 81001; 83605; 85025; 87040; 93005; 99284; J7030

== ENCOUNTER → 2024-11-28 14:30 | Outpatient (BNVA) | payer MEDICAID, SELFPAY ==
[2023-12-25 14:16] VITALS: BP 101/46; BMI 26.2
== END ==
PROVIDERS: PCP Family Medicine; Visit Provider Internal Medicine
DX: Z95.2 Presence of prosthetic heart valve (principal); I10 Essential (primary) hypertension; E78.2 Mixed hyperlipidemia; Z87.891 Personal history of nicotine dependence
CPT/HCPCS: 99214

== ENCOUNTER → 2024-12-25 12:36 | Outpatient (BNVA) | payer OTHER, SELFPAY ==
[2023-12-25 14:16] VITALS: BP 101/46; BMI 26.2
== END ==
PROVIDERS: PCP Family Medicine; Visit Provider Nurse Practitioner Psychiatric/Mental Health
DX: Z79.899 Other long term (current) drug therapy (principal)
CPT/HCPCS: 80061; 83036

== ENCOUNTER 2025-01-14 00:28 | Emergency (ER) | payer MEDICAID, SELFPAY ==
[2023-12-25 14:16] VITALS: BP 101/46; BMI 26.2
[2025-01-14] VITALS (11 sets, daily range): BP systolic 100–133; BP diastolic 49–92; PULSE 64–74; RESP 17; TEMP 36.9; O2SAT 92–97; BMI 25.7
--- OUTSIDE RECORDS SUMMARY | 2025-01-14 00:33 | XMS_ITS | Patient Health Record ---
Author Organization [facility] Address [address] [place] [address] Care Team Providers Care Diesel Instructor Name Role Phone Viky Yang Primary Care Provider Teodoro Quintana Unavailable [phone] Reason For Referral No Information Medications Medication SIG (Take, Route, Frequency, Duration) Notes Start Date End Date Status Atorvastatin Calcium 40 MG TAKE 1 TABLET BY MOUTH EVERY DAY Oral; Duration: 90 Active Clobetasol Propionate 0.05 % PLEASE SEE ATTACHED FOR DETAILED DIRECTIONS External; Duration: 30 Active Lidocaine 5 % 1 application as nee ded Externally Three times a day; Duration: 30 days 04/29/2020 Active Losartan Potassium 25 MG TAKE 1 TABLET B Y MOUTH EVERY DAY Oral; Duration: 30 Active Gabapentin 300 MG 1 capsule Orally gina ry 8 hours; Duration: 30 day(s) 04/08/2020 Active traZODone HCl 50 MG TAKE 1 TABLET BY [place] TH EVERY DAY AT BEDTIME NEEDED Oral; Duration: 30 Active Spiriva Respimat 2.5 MCG/ACT INHALE 2 PUFF BY INHALATION ROUTE EVERY DAY AT THE SAME TIME EACH DAY Inhalation; Duration: 30 Active Metoprolol Tartrate 50 MG TAKE 1/2 TABLE T BY MOUTH TWICE A DAY Oral; Duration: 90 Active Fluticasone Propionate 50 MCG/ACT SPRAY 1 SPRAY INTO EACH NOSTRIL EVERY DAY Nasal; Duration: 30 Active Docusate Sodium 100 MG 1 capsule as need ed Orally Once a day; Duration: 30 day(s) Active tiZANidine HCl 2 MG 1 tablet as needed O rally Three times a day; Duration: 30 days 04/08/2020 Active DULoxetine HCl 60 MG 2 DELAYED RELEASE C APSULE ONCE A DAY 30 DAY(S) 60 MG Oral; Duration: 30 Active Diclofenac Sodium 75 MG 1 tablet Orally Twice a day; Duration: 30 day(s) 04/08/2020 Active Aspirin Low Dose 81 MG TAKE 1 TABLET BY MOUTH EVERY DAY Oral; Duration: 30 Active Gabapentin 100 MG TAKE 1 CAPSULE BY MO UTH THREE TIMES A DAY Oral; Duration: 30 Active ARIPiprazole 2 MG TAKE 1 TABLET BY [place] TH EVERY DAY Oral; Duration: 30 Active Social History Tobacco Use: Social History Observation Description Date Details (start date - stop date) Current Smoker NA - NA Tobacco Use/Smoking Question Answer Notes Smoking Status current smoker Patient counselled on the dangers of smoking How often do you smoke cigarettes? every day How many cigarettes a day do you smoke? 11-20 When did you start smoking? 20+, years ago Alcohol Screen Question Answer Notes Did you have a drink contain ing alcohol in the past year? Yes How often did you have a dri nk containing alcohol in the past year? 2 to 3 times a week (3 points) Points 3 Interpretation Positive Problems Problem Type SNOMED Code ICD Code Onset Dates Problem Status W/U Status Risk Notes Problem Lumbosacral spondylosis without myelopathy (48759048) Spondylosis without myelopathy or radiculopathy, lumbar region (M47.816) Active confirmed Problem Chronic pain (77620641) Chronic pain (G89.29) Active confirmed Plan Of Treatment No Information Insurance Providers Payer Name Payer Address Payer Phone Subscriber Number Group Number Insured Name Patient Relationship to Insured Coverage Start Date Coverage End Date Care [facility] [facility] [address] [place] [address] [id number] Estephanie Mao Self - patient is the insured 0 Medical (General) History Medical History History ICD Code HTN anemia osteoporosis headaches sinusitis tinnitus chronic bronchitis COPD diarrhea rheumatoid arthritis anxiety depression Surgical History Surgery Date(Month/Year) HYSTERECTOMY 1985,1987 OPEN HEART SURGERY 2017 Hospitalization History Reason Date(Month/Year) FOR THE ABOVE
--- OUTSIDE RECORDS SUMMARY | 2025-01-14 00:33 | XMS_ITS | Patient Health Record ---
Author Organization [facility] Address [address] [place] [address] Care Team Providers Care Sponsorship Manager Name Role Phone Joy ZELAYA, [facility] Primary Care Provider Unavailable Rosales Espinoza Unavailable [phone] Reason For Referral No Information Medications Medication SIG (Take, Route, Frequency, Duration) Notes Start Date End Date Status tiZANidine HCl 2 MG Tablet 1 tablet as n eeded Orally nightly; Duration: 30 Active busPIRone HCl once a day Activ e Gabapentin 1 capsule Orally Onc e a day Active DULoxetine HCl 20 MG Capsule Delayed Release Particles 1 capsule Orally Twice a day; Duration: 30 day(s) Active Metoprolol Succinate 25 MG Capsule ER 24 Hour Sprinkle 1 capsule Orally Once a day; Duration: 30 day(s) Active Social History Tobacco Use: Social History Observation Description Date Details (start date - stop date) Current Smoker NA - NA Social History Functional Assessment low ba ck Social Info Question Answer Notes Oswestry Section 1 - Pain Intensity The p ain is moderate at the moment. (2 points) Section 2 - Personal Care (w ashing, dressing, etc.) I can look after myself normally without causing extra pain. (0 point) Section 3 - Walking Pain prevents me fro m walking more than one mile. (1 point) Section 4 - Lifting Pain prevents me fro m lifting heavy weights off the floor. (2 points) Section 5 - Sitting Pain prevents me fro m sitting for more than 1 hour. (2 points) Section 6 - Standing I can stand as long as I want but it gives me extra pain. (1 point) Section 7 - Sleeping My sleep is never d isturbed by pain. (0 point) Section 9 - Social Life My social life i s normal and causes me no extra pain. (0 point) Section 10 - Traveling I can travel ever ywhere but it gives me extra pain. (1 point) Total Raw Score: 9 Total % Score: 20 Interpretation: Minimal disability Drugs/Alcohol: Social Info Question Answer Notes Drugs Have you used drugs other than those for medical reasons in the past 12 months? No Does not do katie gs Alcohol Screen Did you have a drink containing alcohol in the past year? No Points 0 Interpretation Negative Depression Screening: Social Info Question Answer Notes PHQ-2 (2015 Edition) Little interest or pleasure in do ing things? Several days Feeling down, depressed, or hopeless? Several da ys Total Score 2 PHQ-2 Little interest or pleasure in doing thin gs Yes Feeling down, depressed, or hopeless No PHQ-9 Little interest or pleasure in doing thin gs Several days Feeling down, depressed, or hopeless Several day s Trouble falling or staying asleep, or sleeping t oo much Not at all Feeling tired or having little energy More than half the days Poor appetite or overeating More than half the d ays Feeling bad about yourself, or that you are a failure, or have let yourself or your family down Nearly every day Trouble concentrating on thi ngs, such as reading the newspaper or watching television Not at all Moving or speaking so slowly that other people could have noticed. Or the opposite ? being so fidgety or restless that you have been moving around a lot more than usual Not at all Thoughts that you would be b zehra off , or of hurting yourself in some way Not at all Total Score 9 Interpretation Mild Depression Tobacco Use: Social Info Question Answer Notes Tobacco Use/Smoking Are you a: current smoker How often do you smoke cigarettes? every day How many cigarettes a day do you smoke? 11-20 How soon after you wake up do you smoke your first cigarette? within 5 minutes Are you interested in quitting? Not ready to quit Tobacco use other than smoking: Are you an other tobac co user? no tobacco use Additional Details Category Social Info Options Details Miscellaneous: Marital status: Occupation: unemployed Children: 2 Living with: family Highest Level of Education Completed High School Problems Problem Type SNOMED Code ICD Code Onset Dates Problem Status W/U Status Risk Notes Problem Lumbar radicular pain (2444472951) Lumbar radicular pain (M54.16) Active confirmed Problem Myalgia (58880326) Myalgia (M79.10) Active confirmed Plan Of Treatment Pending Test Test Name Order Date Physical Therapy 02/13/2019 Insurance Providers Payer Name Payer Address Payer Phone Subscriber Number Group Number Insured Name Patient Relationship to Insured Coverage Start Date Coverage End Date [address] [place] [address] [phone] [id number] HOWARD LOVE Self - patient is the insured 4 Medical (General) History Medical History History ICD Code Hypertension I10 Sleep apnea G47.30 Congestive heart failure of unknown etio logy I50.9 COPD (chronic obstructive pulmonary dise ase) J44.9 Bipolar 1 disorder F31.9 Depression F32.9 Surgical History Surgery Date(Month/Year) section 1985, 1988 Open heart surgery 2016
--- NOTE | 2025-01-14 00:38 | ECG_ITS ---
[employer] Test Date: 2025-01-14 Pat Name: Estephanie Mao Department: Room: Gender: Female Transportation Dispatch Manager: : 1960 Requested By: Jone Arroyo Order Number: [id number] Christiana MD: Nikolai Griffin M.D. Measurements Intervals Adel Rate: 66 P: 74 [place]: 139 QRS: 28 QRSD: 90 T: 119 QT: 425 QTc: 446 Interpretive Statements SINUS RHYTHM MODERATE T-WAVE ABNORMALITY, CONSIDER ISCHEMIA [-0.1+ mV T-WAVE IN I/aVL/V5/V6] Compared to ECG 11/25/2024 15:08:55 No significant changes Electronically Signed On 01-16-2025 08:47:53 CDT by Nikolai Griffin M.D. [email or web address]
--- NOTE | 2025-01-14 01:17 | XRR_ITS ---
PROCEDURE INFORMATION: Exam: XR Chest Exam date and time: 01/14/2025 1:20 AM Age: 64 years old Clinical indication: Pain; Chest pressure; Prior surgery; Surgery date: 6+ months; Surgery type: Open heart, aortic valve replacement; Additional info: Chest pain TECHNIQUE: Imaging protocol: Radiologic exam of the chest. Views: 1 view. COMPARISON: CT lung screening [id number] 08/06/2024 8:25 AM FINDINGS: Tubes, catheters and devices: An aortic valve prosthesis is present. Lungs: Unremarkable. No consolidation. Pleural spaces: Unremarkable. No pleural effusion. No pneumothorax. Heart/Mediastinum: Unremarkable. No cardiomegaly. Bones/joints: Postoperative changes from median sternotomy are noted. Sternotomy wires are well aligned. Organs: Abandoned epicardial pacing leads are noted. XR/XR chest 1V portable [id number] IMPRESSION: No acute findings.
[2025-01-14 01:27] LABS: Hematocrit 37.8 % (36-47); Hemoglobin 12.00 g/dL (11.27-16.99); Mean Corpuscular HGB Conc 31.7 g/dL (30-55); Mean Corpuscular Hemoglobin 31.7 pg (27-33); Mean Corpuscular Volume 100.0 fl (85-98); Nucleated Red Blood Cells % 0 %; Platelet Count 149 10^3/cmm (157-399); Red Blood Count 3.78 10^6/uL (3.85-5.65); White Blood Count 7.17 10^3/uL (3.29-11.43)
[2025-01-14 01:42] LABS: Troponin(5th) Baseline 16 ng/L (0-10)
[2025-01-14 01:51] LABS: Blood Urea Nitrogen 13 mg/dL (8-23); Calcium 8.7 mg/dL (8.5-10.5); Carbon Dioxide 24 mmol/L (22-29); Chloride 103 mmol/L (98-107); Creatinine Clr Calc Pharmacy 55.9653; Glucose 118 mg/dL (65-115); NT Pro B Type Natriuretic Pept 672 pg/mL (0-125); Osmolality Calculated 293 mOsm/kg (285-295); Sodium 141 mmol/L (136-145)
[2025-01-14 01:58] LABS: Anion Gap 17.7 (5-19); Potassium 3.7 mmol/L (3.5-5.1)
[2025-01-14 02:02] LABS: Slide Review Slide Review Perform
[2025-01-14] MEDS: ondansetron 2 mg/ML SDV 2 mL 4 MG IVP (02:18)
[2025-01-14 02:23] LABS: Glucose Urine UA Negative (Normal); Nitrate Urine Negative (Negative); Specific Gravity, Urine 1.008 (1.005-1.030)
[2025-01-14 02:25] LABS: CRP High Sensitivity Cardiac < 0.150 mg/dL (0.0-0.3); Lipase 53 U/L (13-60); Magnesium 2.3 mg/dL (1.7-2.3)
[2025-01-14 02:28] LABS: Add Urine Microscopic? YES
--- NOTE | 2025-01-14 02:58 | ED_ITS ---
HPI - Chest Pain 2 General: Chief Complaint: Chest Pain Stated Complaint: chest pain Time Seen by Provider: 01/14/25 00:29 History of Present Illness: Patient is a 64-year-old female with past medical history of HLD, osteoporosis, depression, hypertension, aortic stenosis status post AVR who presents with a several-hour history of chest pain localized under the left breast, described as a tightening and burning sensation accompanied with some nausea but no vomiting, no recent diarrhea. The pain began while watching TV and was rated as a 6 out of 10 in intensity. The patient denies radiation of pain, shortness of breath, diaphoresis, vomiting, syncope, or nausea. The pain did not worsen with movement or position changes. The patient ate macaroni and cheese with hot sauce prior to onset and has a history of occasional choking and indigestion The patient has a history of a bioprosthetic heart valve and is followed by a business banking representative, but has not had a recent stress test and is not on blood thinners. No history of cardiac stents. Associated symptoms: Reports abdominal pain and nausea Related Data Home Medications ?Medication ?Instructions ?Recorded ?Confirmed atorvastatin 40 mg tablet 40 mg PO DAILY 01/03/2411/19 alendronate 70 mg tablet mg PO 09/25/24 12/09/24 Previous Rx's ?Medication ?Instructions ?Recorded losartan 25 mg tablet 25 mg PO DAILY #90 tabs 08/19 09/10 Held on 12/23/23. Instructions: Resume on 01/06/24. hold for 2 weeks omeprazole 40 mg capsule,delayed 40 mg PO DAILY #90 ca ps 10/18/23 release rollaid with seat #1 ea 02/01/24 budesonide-formoterol HFA 160 2 inh inhalation BID #10 .2 grams 05/31/24 mcg-4.5 mcg/actuation aerosol inhaler (Symbicort) tizanidine 4 mg tablet 4 mg PO BID PRN muscle spast icity 08/13/24 #60 tabs topiramate 25 mg tablet (Topamax) 25 mg PO BID PRN ner ve pain #60 08/13/24 tabs Ventolin HFA 90 mcg/actuation See Rx Instructions .Rou te 10/10/24 aerosol inhaler (albuterol sulfate) .COMPLEX #54 grams right tennis elbow brace #1 ea 10/23/24 celecoxib 100 mg capsule (Celebrex) 100 mg PO BID #180 caps 10/30/24 aripiprazole 2 mg tablet 2 mg PO BEDTIME #30 tabs duloxetine 60 mg capsule,delayed 60 mg PO .q am #30 ca ps 12/09/24 release trazodone 150 mg tablet 150 mg PO .q hs PRN sleep #3 0 tabs 12/30/24 sucralfate 1 gram tablet (Carafate) 1 g PO BID left si ded abdominal 01/14/25 pain, vomiting with eati 2 weeks #28 tabs Allergies Allergy/AdvReac Type Severity Reaction Status Date / Time No Known Allergies Allergy Verified 12/09/24 10:58 Review of Systems 2 General: Reports: 10 or more systems reviewed and unremarkable except in HPI and below GI: Reports: abdominal pain and nausea PFSH ED 2 PFSH: Medical History (Updated 01/14/25 @ 03:29 by Jone Arroyo DO) Infected laceration of skin Acute pain of left knee Psychiatric care ROBERTO (obstructive sleep apnea) DDD (degenerative disc disease), cervical Essential hypertension Asthma COPD (chronic obstructive pulmonary disease) Depression with anxiety Hyperlipidemia Chronic low back pain Macular degeneration Surgical History (Updated 01/14/25 @ 03:29 by Jone Arroyo DO) H/O section S/P AVR (aortic valve replacement) History of open heart surgery Family History Other Alzheimer disease Cancer Social History Smoking and tobacco/nicotine status: former use of tobacco/nicotine Female Reproductive History: Spontaneous abortions: No Physical Exam 2 Narrative: EXAM NARRATIVE: Thin, no acute distress, overall well-appearing, vital stable on arrival, afebrile. Exam consistent with normal sinus rhythm, slight murmur at the second intercostal space on the left, no leg swelling, no signs of fluid overload and breathing comfortably on room air. Abdomen mildly distended, reproducible left upper quadrant tenderness mildly, not peritonitic, bowel sounds slightly increased, no CVA tenderness. GCS 15. Course 2 Vital Signs: Vital signs: Vital Signs Temperature 98.4 F 01/14/25 00:29 Pulse Rate 69 01/14/25 04:42 Respiratory Rate 17 01/14/25 00:29 Blood Pressure 133/92 01/14/25 04:42 Pulse Oximetry 93 01/14/25 04:42 Oxygen Delivery Me thod Room Air 01/14/25 04:18 MDM - Chest Pain Medical Decision Making -ddx: Gastritis, reflux, foodborne illness, PUD, pancreatitis, cholecystitis, ACS, pneumonia, pneumothorax, aortic stenosis - Patient overall well-appearing, seemingly with abrupt left upper quadrant pain following spicy mac & cheese earlier tonight, was nauseous. Especially with her setting of aortic stenosis, no actual chest pain, syncopal episodes, shortness of breath. No exertional chest pain, diaphoresis, vomiting that would be concerning for ACS at this time. Relatively reassuring ED evaluation with negative delta troponins and decreased from baseline, but BNP less than her baseline. Chest x-ray with no effusion, consolidation, pneumothorax.. No severe electrolyte abnormality, no SHAWN, no markers of systemic infection or inflammation. HEAR score of 5, but seemingly due to baseline factors, clinically did not sound like ACS nature and has close follow-up with her business banking representative and we will get a repeat appointment to a possible provocative study. Patient felt much improved with fluids, Pepcid and Zofran, was able to p.o. challenge and then deemed to be in stable condition with emergent conditions ruled out and discharged in stable condition with scripts for Carafate in addition to the omeprazole she takes at home. Lab Data 01/14/25 00:53 01/14/25 00:53 Radiology Impressions Chest X-Ray 01/14/25 01:17 IMPRESSION: No acute findings. Laboratory Results WBC 7.17 10^3/uL (3.29-11.43) 01/14/25 00:53 RBC 3.78 10^6/uL (3.85-5.65) L 01/14/25 00:53 Hgb 12.00 g/dL (11.27-16.99) 01/14/25 00:53 Hct 37.8 % (36-47) 01/14/25 00:53 MCV 100.0 fl (85-98) H 01/14/25 00:53 MCH 31.7 pg (27-33) 01/14/25 00:53 MCHC 31.7 g/dL (30-55) 01/14/25 00:53 RDW 13.5 % (12.1-15.1) 01/14/25 00:53 Plt Count 149 10^3/cmm (157-399) L 01/14/25 00:53 MPV 12.6 fL (7.4-10.4) H 01/14/25 00:53 Neut % (Auto) 60.6 % 01/14/25 00:53 Lymph % (Auto) 27.3 % 01/14/25 00:53 [place] % (Auto) 7.0 % 01/14/25 00:53 Eos % (Auto) 3.9 % 01/14/25 00:53 Baso % (Auto) 0.8 % 01/14/25 00:53 Neut # (Auto) 4.34 10^3/uL (1.8-7.7) 01/14/25 00:53 Lymph # (Auto) 2.0 10^3/uL (0.8-4.8) 01/14/25 00:53 [place] # (Auto) 0.5 10^3/uL (0.2-0.9) 01/14/25 00:53 Eos # (Auto) 0.3 10^3/uL (0.0-0.8) 01/14/25 00:53 Baso # (Auto) 0.1 10^3/uL (0.0-0.1) 01/14/25 00:53 Nucleated RBC % (auto) 0 % 01/14/25 00:53 Nucleated RBCs # 0.0 /100WBC 01/14/25 00:53 Sodium 141 mmol/L (136-145) 01/14/25 00:53 Potassium 3.7 mmol/L (3.5-5.1) 01/14/25 00:53 Chloride 103 mmol/L (98-107) 01/14/25 00:53 Carbon Dioxide 24 mmol/L (22-29) 01/14/25 00:53 Anion Gap 17.7 (5-19) 01/14/25 00:53 BUN 13 mg/dL (8-23) 01/14/25 00:53 Creatinine 0.8 mg/dL (0.5-0.9) 01/14/25 00:53 GFR Calculation 71.8 mL/min (90-130) L 01/14/25 00:53 Glucose 118 mg/dL (65-115) H 01/14/25 00:53 Calculated Osmolality 293 mOsm/kg (285-295) 01/14/25 00:53 Calcium 8.7 mg/dL (8.5-10.5) 01/14/25 00:53 Phosphorus 3.3 mg/dL (2.5-4.5) 01/14/25 00:53 Magnesium 2.3 mg/dL (1.7-2.3) 01/14/25 00:53 Troponin T Baseline 16 ng/L (0-10) H 01/14/25 00:53 Troponin T 120 Minute 15.50 ng/L (0-10) H 01/14/25 02:53 Delta Troponin T -0.50 ABS# (0-10) L 01/14/25 02:53 C-React Prot High Sens < 0.150 mg/dL (0.0-0.3) 01/14/25 00:53 NT-Pro-B Natriuret Pep 672 pg/mL (0-125) H 01/14/25 00:53 Lipase 53 U/L (13-60) 01/14/25 00:53 Urine Color Yellow (Yellow) 01/14/25 02:13 Urine Appearance Clear (CLEAR) 01/14/25 02:13 Urine pH 6.5 (5-7) 01/14/25 02:13 Ur Specific Nichols 1.008 (1.005-1.030) 01/14/25 02:13 Urine Protein Negative (Negative) 01/14/25 02:13 Urine Glucose (UA) Negative (Normal) 01/14/25 02:13 Urine Ketones Negative (Negative) 01/14/25 02:13 Urine Blood Negative (Negative) 01/14/25 02:13 Urine Nitrate Negative (Negative) 01/14/25 02:13 Urine Bilirubin Negative (Negative) 01/14/25 02:13 Urine Urobilinogen 1.0 mg/dL (Negative) 01/14/25 02:13 Ur Leukocyte Esterase Negative (Negative) 01/14/25 02:13 Urine RBC 0-2 /hpf (0-2) 01/14/25 02:13 Urine WBC 0-5 /hpf (0-5) 01/14/25 02:13 Ur Squamous Epith Cells 6-10 /hpf (0-5) 01/14/25 02:13 Amorphous Sediment Not Reportable 01/14/25 02:13 Urine Bacteria None seen /hpf (NONE) 01/14/25 02:13 Hyaline Casts 0-4 /lpf H 01/14/25 02:13 All radiology interpretation(s) finalized by discharge EKG Data EKG 1: Interpretation: EKG with normal sinus rhythm at 66 bpm, normal MI, QRS and QTc intervals, T wave inversions in anterolateral leads, no ST depression or elevation Discharge Plan Discharge Patient Disposition: Home Clinical Impression: S/P AVR (aortic valve replacement) Gastritis Qualifiers: Chronicity: acute Gastritis bleeding: without bleeding Condition: Stable Prescriptions: New sucralfate [Carafate] 1 gram tablet 1 g PO BID MDD 2 g 14 Days Qty: 28 0RF No Action tizanidine 4 mg tablet 4 mg PO BID PRN (Reason: muscle spasticity) Qty: 60 0RF topiramate [Topamax] 25 mg tablet 25 mg PO BID PRN (Reason: nerve pain) Qty: 60 3RF aripiprazole 2 mg tablet 2 mg PO BEDTIME Qty: 30 1RF Rx Instructions: Take one tablet daily at bedtime duloxetine 60 mg capsule,delayed release(DR/EC) 60 mg PO .q am Qty: 30 1RF Rx Instructions: Take one capsule by mouth every morning losartan 25 mg tablet 25 mg PO DAILY Qty: 90 1RF (DME) rollaid with seat See Rx Instructions .Route .MEDSUPPLY Qty: 1 0RF Rx Instructions: As directed alendronate 70 mg tablet PO (DME) right tennis elbow brace See Rx Instructions .Route .MEDSUPPLY Qty: 1 0RF Rx Instructions: As directed. Order 99 days celecoxib [Celebrex] 100 mg capsule 100 mg PO BID Qty: 180 0RF omeprazole 40 mg capsule,delayed release(DR/EC) 40 mg PO DAILY Qty: 90 0RF budesonide-formoterol [Symbicort] 160-4.5 mcg/actuation HFA aerosol inhaler 2 inh inhalation BID Qty: 10.2 1RF albuterol sulfate [Ventolin HFA] 90 mcg/actuation HFA aerosol inhaler See Rx Instructions .ROUTE .COMPLEX Qty: 54 0RF Dose Instruction: INHALE 2 PUFFS BY MOUTH EVERY 6 HOURS NEEDED FOR SHORTNESS OF BREATH AND FOR WHEEZING Rx Instructions: INHALE 2 PUFFS BY MOUTH EVERY 6 HOURS NEEDED FOR SHORTNESS OF BREATH AND FOR WHEEZING trazodone 150 mg tablet 150 mg PO .q hs PRN (Reason: sleep) Qty: 30 1RF Rx Instructions: Take one tablet at bedtime, if needed, for sleep; stop other doses atorvastatin 40 mg tablet 40 mg PO DAILY Discharge Orders: Discharge ED (Routine); Ordered 01/14/25 Ordered By: Jone Arroyo Referrals: David Espinal MD [Primary Care Provider, [facility]] Discharge Diet: Advance as tolerated Discharge Activity: Resume usual activity Patient Instructions: Opioid Safety, Pain Management, Patient Portal & Selene Instructions Activity Restrictions/Additional Instructions: You were seen for your left-sided chest/abdominal pain, you were evaluated with labs, an EKG and chest x-ray that were ultimately reassuring, you improved with GI medications and fluids and were deemed stable to be discharged home. He will be treated for a gastritis, which could be potentially the beginnings of a small stomach ulcer, to best help this, avoid any spicy or heavily fatty foods, alcohol use, ibuprofen usage. Eat a bland diet consisting of toast, crackers and slowly progress back to normal over a few days as your stomach allows. If this pain becomes more frequent over time, make a follow-up appointment with your primary care physician to discuss potential evaluation by GI and getting a camera through your GI tract to further evaluate and treat your symptoms. Return to the ED with severe worsening of the pain, episodes of passing out, difficulties breathing, fevers, inability to eat or drink, continuous vomiting, any other emergent concerns. Print Language: Serbian Coding Level of Care Code ED Form Press Operator for Chg Fwd Heart Score HEART Score Components History: Slightly Suspicous EKG: Non-specific Changes Age: 65 or more yrs Risk Factors: 1 or 2 Risk Factors Troponin: Baseline Trop 16-45 ng/L HEART Score RESULT HEART Score: 5
[2025-01-14 03:14] LABS: Troponin 5 2HR 15.50 ng/L (0-10)
[2025-01-14 03:19] LABS: Troponin 5 2HR Delta -0.50 ABS# (0-10)
== END 2025-01-14 04:44 | disposition home or self-care (01) ==
PROVIDERS: Emergency Provider Student in an Organized Health Care Education/Training Program; PCP Family Medicine
DX: K29.00 Acute gastritis without bleeding (principal); Z95.2 Presence of prosthetic heart valve; Z87.891 Personal history of nicotine dependence; E78.5 Hyperlipidemia, unspecified; J44.9 Chronic obstructive pulmonary disease, unspecified; I10 Essential (primary) hypertension
CPT/HCPCS: 36415; 71045; 80048; 81001; 83690; 83735; 83880; 84100; 84484; 85025; 86141; 93005; 96361; 96374; 96375; 99285; J2405; J3490; J7030

== ENCOUNTER → 2025-01-21 10:42 | Outpatient (BNVA) | payer MEDICAID, SELFPAY ==
[2023-12-25 14:16] VITALS: BP 101/46; BMI 26.2
== END ==
PROVIDERS: PCP Family Medicine; Visit Provider Nurse Practitioner Family
DX: M54.50 Low back pain, unspecified (principal); M25.521 Pain in right elbow
CPT/HCPCS: 99214